=== PATIENT | female | born 1950 | race African-American/Black ===

== ENCOUNTER 2016-12-19 16:46 | Observation (INO) | payer MEDICARE, MEDICAID, OTHER ==
[2016-12-19] VITALS (7 sets, daily range): BP systolic 146–230; BP diastolic 71–125; PULSE 62–86; RESP 16–18; TEMP 97.8; O2SAT 98–100
[~2016-12-19] VITALS: Ht 162.6 cm; Wt 71.0 kg
[~2016-12-19 16:46] MED LIST: AMLO5TAB2 PO; ASPI81CH CHEW; ASPI81TA81 PO; ATEN25TA PO; CHOL1TAB42 PO; EPIP0.3I IM; HYDR-3533 PO; LISI10TA PO; NITR1SUB3 SL; PRAV40TA PO
--- NOTE | 2016-12-19 18:04 | PD ---
HPI Chief Complaint: Cardiac Complaint Time Seen by Provider: 18:03 Travel History International Travel<30 days: No Contact w/Intl Traveler<30days: No Traveled to known affect area: No History of Present Illness HPI 66-year-old female with history of CAD, hypertension, CABG 2, diabetes, depression, anxiety, GERD, CVA, chronic pain of the left neck and left upper extremity, presents today from her primary care provider, Dr. Rodríguez in the [address] [place] [address] patient states she has been under increased stressors lately and has been having intermittent left-sided chest pressure. This is not something that she typically experiences. It has been at rest and with activity. She cannot think of any alleviating or exacerbating factors. Denies any nausea or vomiting. No episodes of diaphoresis. She is not currently having any pain. She has no other symptoms to report. PFSH Past Medical History Arthritis: Yes Asthma: No Autoimmune Disease: No Blood Disorders: No Anxiety: Yes Depression: Yes Heart Rhythm Problems: Yes Cancer: No Cardiovascular Problems: Yes High Cholesterol: Yes Chest Pain: Yes Congestive Heart Failure: Yes (2007) COPD: No Cerebrovascular Accident: Yes Diabetes: Yes Endocrine: No Gastrointestinal Disorders: Yes GERD: Yes Genitourinary: No Hypertension: Yes Kidney Stones: No Musculoskeletal: Yes Neurologic: No Psychiatric: No Reproductive: No Respiratory: No Migraines: No Myocardial Infarction: Yes Renal Failure: No Seizures: Yes Sickle Cell Disease: No Sleep Apnea: No Ulcer: No Past Surgical History Abdominal Surgery: No AICD: No Arteriovenous Shunt: No Cardiac Surgery: Yes (CARDIAC CATH X2, CABG 2007) Coronary Artery Bypass Graft: Yes (x 4 2008) Ear Surgery: No Endocrine Surgery: No Eye Surgery: No Genitourinary Surgery: Yes (bladder suspension) Gynecologic Surgery: Yes (HYSTERECTOMY) Hysterectomy: Yes Insulin Pump: No Joint Replacement: No Neurologic Surgery: Yes (neck surg from [facility]) Oral Surgery: No Pacemaker: No Thoracic Surgery: No Other Surgery: Yes (HYSTERECTOMY, CARDIAC CATHX2, CABG 2007) Social History Alcohol Use: Yes (AGUSTIN) Tobacco Use: Yes Substance Use: Yes (marijuana when can get it) Allergies-Medications (Allergen,Severity, Reaction): Coded Allergies: Penicillin (Verified Allergy, Intermediate, swelling /hives all over, 12/19) Seafood (Verified Allergy, Intermediate, Swelling, 12/19/16) mouth swelling Sulfa (Verified Allergy, Mild, swelling , 12/19/16) mouth swells Cipro (Verified Allergy, Unknown, swelling, 12/19/16) Reported Meds & Prescriptions Reported Meds & Active Scripts Active Lortab (Hydrocodone-Acetaminophen) 5-325 Mg Tab 1 Tab PO Q6H PRN Amlodipine (Amlodipine Besylate) 5 Mg Tab 5 Mg PO DAILY Lisinopril-Hctz 10-12.5 Mg Tab 1 Tab PO DAILY Epipen (Epinephrine) 0.3 Mg Inj 0.3 Mg IM ONCE PRN Reported Nitroglycerin SL (Nitroglycerin) 0.4 Mg Subl 0.4 Mg SL DIRECTED PRN ONE TABLET UNDER THE TONGUE NEEDED FOR CHEST PAIN, MAY REPEAT EVERY FIVE MINUTES FOR A TOTAL OF 3 DOSES OR CALL 911 IF NO RELIEF Vitamin D-3 (Cholecalciferol) 2,000 Unit Tab 2,000 Units PO DAILY Pravachol (Pravastatin) 40 Mg Tab 40 Mg PO DAILY Atenolol 25 Mg Tab 25 Mg PO DAILY Aspir-81 (Aspirin) 81 Mg Tabdr 81 Mg PO DAILY Review of Systems Except as stated in HPI: all other systems reviewed are Neg Physical Exam Narrative GENERAL: Well-nourished female patient, in no acute distress SKIN: Focused skin assessment warm/dry. HEAD: Atraumatic. Normocephalic. EYES: Pupils equal and round. No scleral icterus. No injection or drainage. ENT: No nasal bleeding or discharge. Mucous membranes pink and moist. NECK: Trachea midline. No JVD. CARDIOVASCULAR: Regular rate and rhythm. No murmur appreciated. RESPIRATORY: No accessory muscle use. Clear to auscultation. Breath sounds equal bilaterally. GASTROINTESTINAL: Abdomen soft, non-tender, nondistended. Hepatic and splenic margins not palpable. MUSCULOSKELETAL: No obvious deformities. No clubbing. No cyanosis. No edema. NEUROLOGICAL: Awake and alert. No obvious cranial nerve deficits. Motor grossly within normal limits. Garbled/difficult to understand speech. Patient does not have any teeth in her mouth. PSYCHIATRIC: Appropriate mood and affect; insight and judgment normal. Data Data Last Documented VS Vital Signs Date Time Temp Pulse Resp B/P Pulse Ox O2 Delivery O2 Flow Rate FiO2 12/19/16 19:42 74 18 230/112 100 Room Air 12/19/16 17:05 97.8 Orders Electrocardiogram (12/19/16 18:02) Basic Metabolic Panel (Bmp) (12/19/16 18:02) Ckmb (Isoenzyme) Profile (12/19/16 18:02) Complete Blood Count With Diff (12/19/16 18:02) Magnesium (Mg) (12/19/16 18:02) Prothrombin Time / Inr (Pt) (12/19/16 18:02) Act Partial Throm Time (Ptt) (12/19/16 18:02) Troponin I (12/19/16 18:02) Chest, Single Ap (12/19/16 18:02) Ecg Monitoring (12/19/16 18:02) Bilateral Bp Monitoring (12/19/16 18:02) Iv Access Insert/Monitor (12/19/16 18:02) Oximetry (12/19/16 18:02) Oxygen Administration (12/19/16 18:02) Aspirin Chew (Aspirin Chew) (12/19/16 18:15) Sodium Chloride 0.9% Flush (Ns Flush) (12/19/16 18:15) Admit Order (Ed Use Only) (12/19/16 19:58) Labs Laboratory Tests Test 12/19/16 19:23 White Blood Count 7.2 TH/MM3 Red Blood Count 4.47 MIL/MM3 Hemoglobin 12.9 GM/DL Hematocrit 40.4 % Mean Corpuscular Volume 90.6 FL Mean Corpuscular Hemoglobin 28.9 PG Mean Corpuscular Hemoglobin 31.9 % Concent Red Cell Distribution Width 14.4 % Platelet Count 256 TH/MM3 Mean Platelet Volume 8.2 FL Neutrophils (%) (Auto) 61.8 % Lymphocytes (%) (Auto) 29.0 % Monocytes (%) (Auto) 5.4 % Eosinophils (%) (Auto) 3.2 % Basophils (%) (Auto) 0.6 % Neutrophils # (Auto) 4.4 TH/MM3 Lymphocytes # (Auto) 2.1 TH/MM3 Monocytes # (Auto) 0.4 TH/MM3 Eosinophils # (Auto) 0.2 TH/MM3 Basophils # (Auto) 0.0 TH/MM3 CBC Comment DIFF FINAL Differential Comment Prothrombin Time 11.0 SEC Prothromb Time International 1.0 RATIO Ratio Activated Partial 23.3 SEC Thromboplast Time Sodium Level 137 MEQ/L Potassium Level 4.2 MEQ/L Chloride Level 104 MEQ/L Carbon Dioxide Level 24.9 MEQ/L Anion Gap 8 MEQ/L Blood Urea Nitrogen 17 MG/DL Creatinine 1.39 MG/DL Estimat Glomerular Filtration 46 ML/MIN Rate Random Glucose 92 MG/DL Calcium Level 9.4 MG/DL Magnesium Level 2.1 MG/DL Total Creatine Kinase 100 U/L Troponin I LESS THAN 0.02 NG/ML MDM Medical Decision Making Medical Screen Exam Complete: Yes Emergency Medical Condition: Yes Medical Record Reviewed: Yes Differential Diagnosis Angina stable versus unstable versus ACS versus chest wall pain versus pleuritic pain Narrative Course 66-year-old female presents to emergency department for evaluation of chest pressure. Patient appears without distress. Her vital signs are stable except she is hypertensive and has a history of this. EKG is done and shows possible lateral wall ischemia with inverted ST segment. CBC is without acute concern. BMP also without acute concern. Troponin is less than 0.02. Patient will be admitted observation to the chest pain center for further evaluation of her symptoms. Diagnosis Primary Impression: Chest pressure Additional Impression: Hypertension Qualified Code: I10 - Essential hypertension Admitting Information Admitting Physician Requests: Observation Condition: Stable Jigna Ruvalcaba Dec 19, 2016 18:03
[2016-12-19] MEDS ORDERED: SODIUM CHLORIDE 0.9% FLUSH 10 ML FLUSH IVF PRN (18:15)
[2016-12-19] MEDS ORDERED: ASPIRIN 81 MG CHEW TAB PO ONE (18:15)
--- NOTE | 2016-12-19 19:00 | RADRPT ---
EXAM DATE/TIME: 12/19/2016 17:57 [facility] COMPARISON: CHEST SINGLE AP, July 21, 2013, 4:11. INDICATIONS : Chest pain MEDICAL HISTORY : Cardiovascular disease. SURGICAL HISTORY : CABG. Fusion, cervical. ENCOUNTER: Initial ACUITY: >1 year PAIN SCORE: 0/10 LOCATION: Bilateral chest FINDINGS: The lungs are clear without infiltrate, nodule, or mass. There is no appreciable pleural effusion fo r technique. Heart and mediastinum are unremarkable. There is evidence for prior median sternotomy. There are old healed rib fractures in the right lower chest. CONCLUSION: No acute cardiopulmonary disease. Ghada Brown MD on December 19, 2016 at 18:57 Board Certified Radiologist. This report was verified electronically.
[2016-12-19 19:35] LABS: AUTOMATED NEUTROPHIL # 4.4 TH/MM3 (1.8-7.7); BASOPHIL % 0.6 % (0.0-2.0); EOSINOPHIL # 0.2 TH/MM3 (0-0.4); EOSINOPHIL % 3.2 % (0.0-4.0); HEMATOCRIT 40.4 % (35.0-46.0); HEMO FLAGS DIFF FINAL; LYMPHOCYTE # 2.1 TH/MM3 (1.0-4.8); MEAN CELL VOLUME 90.6 FL (80.0-100.0); MEAN CORPUSCULAR HEMOGLOBIN 28.9 PG (27.0-34.0); MEAN CORPUSCULAR HGB CONC 31.9 % (32.0-36.0); MONO % 5.4 % (0.0-8.0); NEUT % 61.8 % (16.0-70.0); PLATELET COUNT 256 TH/MM3 (150-450); RED BLOOD COUNT 4.47 MIL/MM3 (4.00-5.30); RED CELL DISTRIBUTION WIDTH 14.4 % (11.6-17.2); WHITE BLOOD COUNT 7.2 TH/MM3 (4.0-11.0)
[2016-12-19 19:51] LABS: ANION GAP 8 MEQ/L (5-15); BICARBONATE 24.9 MEQ/L (21.0-32.0); BLOOD UREA NITROGEN 17 MG/DL (7-18); CHLORIDE 104 MEQ/L (98-107); GLOMERULAR FILTRATION RATE 46 ML/MIN (>89); MAGNESIUM 2.1 MG/DL (1.5-2.5); POTASSIUM 4.2 MEQ/L (3.5-5.1); SODIUM (NA) 137 MEQ/L (136-145)
[2016-12-19 19:56] LABS: CREATINE KINASE 100 U/L (26-192)
[2016-12-19 19:58] LABS: APTT (PATIENT) 23.3 SEC (24.3-30.1)
--- NOTE | 2016-12-19 20:27 | PD ---
Physical Exam Narrative Patient was seen by me and my emergency veterinary assistant. Patient has history hypertension and has not been taking her medication for the past week. Patient was on atenolol 25 mg daily. Data Data Last Documented VS Vital Signs Date Time Temp Pulse Resp B/P Pulse Ox O2 Delivery O2 Flow Rate FiO2 12/19/16 20:12 84 18 210/90 99 Room Air 12/19/16 17:05 97.8 Orders Electrocardiogram (12/19/16 18:02) Basic Metabolic Panel (Bmp) (12/19/16 18:02) Ckmb (Isoenzyme) Profile (12/19/16 18:02) Complete Blood Count With Diff (12/19/16 18:02) Magnesium (Mg) (12/19/16 18:02) Prothrombin Time / Inr (Pt) (12/19/16 18:02) Act Partial Throm Time (Ptt) (12/19/16 18:02) Troponin I (12/19/16 18:02) Chest, Single Ap (12/19/16 18:02) Ecg Monitoring (12/19/16 18:02) Bilateral Bp Monitoring (12/19/16 18:02) Iv Access Insert/Monitor (12/19/16 18:02) Oximetry (12/19/16 18:02) Oxygen Administration (12/19/16 18:02) Aspirin Chew (Aspirin Chew) (12/19/16 18:15) Sodium Chloride 0.9% Flush (Ns Flush) (12/19/16 18:15) Admit Order (Ed Use Only) (12/19/16 19:58) Hydralazine Inj (Apresoline Inj) (12/19/16 20:30) Urinalysis - C+S If Indicated (12/19/16 20:23) Labs Laboratory Tests Test 12/19/16 19:23 White Blood Count 7.2 TH/MM3 Red Blood Count 4.47 MIL/MM3 Hemoglobin 12.9 GM/DL Hematocrit 40.4 % Mean Corpuscular Volume 90.6 FL Mean Corpuscular Hemoglobin 28.9 PG Mean Corpuscular Hemoglobin 31.9 % Concent Red Cell Distribution Width 14.4 % Platelet Count 256 TH/MM3 Mean Platelet Volume 8.2 FL Neutrophils (%) (Auto) 61.8 % Lymphocytes (%) (Auto) 29.0 % Monocytes (%) (Auto) 5.4 % Eosinophils (%) (Auto) 3.2 % Basophils (%) (Auto) 0.6 % Neutrophils # (Auto) 4.4 TH/MM3 Lymphocytes # (Auto) 2.1 TH/MM3 Monocytes # (Auto) 0.4 TH/MM3 Eosinophils # (Auto) 0.2 TH/MM3 Basophils # (Auto) 0.0 TH/MM3 CBC Comment DIFF FINAL Differential Comment Prothrombin Time 11.0 SEC Prothromb Time International 1.0 RATIO Ratio Activated Partial 23.3 SEC Thromboplast Time Sodium Level 137 MEQ/L Potassium Level 4.2 MEQ/L Chloride Level 104 MEQ/L Carbon Dioxide Level 24.9 MEQ/L Anion Gap 8 MEQ/L Blood Urea Nitrogen 17 MG/DL Creatinine 1.39 MG/DL Estimat Glomerular Filtration 46 ML/MIN Rate Random Glucose 92 MG/DL Calcium Level 9.4 MG/DL Magnesium Level 2.1 MG/DL Total Creatine Kinase 100 U/L Troponin I LESS THAN 0.02 NG/ML MDM Supervised Visit with BRANDON: Yes Narrative Course Patient has not been taking her blood pressure medication, atenolol, for the past week. Patient's hypertensive. Hydralazine 10 mg IV given. Patient will be put back on atenolol 25 mg daily. Diagnosis Primary Impression: Chest pressure Additional Impression: Hypertension Qualified Code: I10 - Essential hypertension Condition: Stable Alan Longo MD Dec 19, 2016 20:27
[2016-12-19] MEDS ORDERED: hydrALAZINE HCL 20 MG/ML VIAL IV PUSH ONE (20:30)
[2016-12-19 20:56] LABS: BACTERIA, URINE RARE /hpf; BLOOD, URINE NEG (NEG); COMMENT (UR) CULT NOT INDICATED; CULTURE IF INDICATED CULT NOT INDICATED; GLUCOSE,URINE NEG (NEG); KETONE, URINE NEG (NEG); NITRITE,URINE NEG (NEG); PH, URINE 7.5 (5.0-8.5); SQUAMOUS EPITHELIAL CELL URINE 2 /hpf (0-5); URINE COLOR COLORLESS (YELLW/STRAW)
[2016-12-19] MEDS ORDERED: ONDANSETRON HCL 4 MG/2 ML VIAL IV PRN (23:30)
[2016-12-19] MEDS ORDERED: ACETAMINOPHEN 500 MG CPLT PO PRN (23:30)
[2016-12-19] MEDS ORDERED: NITROGLYCERIN 0.4 MG SL 25 TABS/BTL SL PRN (23:30)
[2016-12-20 01:19] VITALS: BP 151/86; PULSE 90; RESP 19; TEMP 98; O2SAT 98
[2016-12-20 01:23] VITALS: PULSE 96
[2016-12-20 01:42] LABS: CREATINE KINASE 79 U/L (26-192)
[2016-12-20 03:34] LABS: CREATINE KINASE 119 U/L (26-192)
[2016-12-20 03:46] LABS: CKMB 0.6 NG/ML (0.5-3.6)
[2016-12-20 08:00] VITALS: PULSE 80
[2016-12-20 08:04] VITALS: BP 190/87; PULSE 76; RESP 18; TEMP 98; O2SAT 99
[2016-12-20 08:41] VITALS: O2SAT 99
[2016-12-20] MEDS ORDERED: amLODIPine BESYLATE 5 MG TAB PO SCH (09:00)
[2016-12-20] MEDS ORDERED: SODIUM CHLORIDE 0.9% FLUSH 10 ML FLUSH IV FLUSH SCH (09:00)
[2016-12-20] MEDS ORDERED: cloNIDine HCL 0.1 MG TAB PO PRN (09:00)
[2016-12-20] MEDS ORDERED: ASPIRIN 325 MG TAB PO SCH (09:00)
[2016-12-20] MEDS ORDERED: ATENOLOL 25 MG TAB PO SCH ×2 (09:00)
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
[2016-12-20] MEDS ORDERED: REGADENOSON INJ 0.4 MG/5 ML SYR ONE (11:05)
--- NOTE | 2016-12-20 12:56 | RADRPT ---
EXAM DATE/TIME: 12/20/2016 10:41 [facility] COMPARISON: CHEST SINGLE AP, December 19, 2016, 17:57. INDICATIONS : Substernal chest pain without radiation. Coronary artery disease. Angina. DOSE: 25.6 mCi Tc99m Myoview at stress. 8.3 mCi Tc99m Myoview at rest. 0.4 mg Lexiscan STRESS SYMPTOMS: Chest pain and a hot feeling. EJECTION FRACTION: 47% MEDICAL HISTORY : Diabetes mellitus type 2. Gastroesophageal reflux disease. Chronic obstructive pulmonary disease. Hyp ertension. SURGICAL HISTORY : Hysterectomy. CABG Bladder suspension. ENCOUNTER: Initial ACUITY: 1 day PAIN SCALE: 6/10 LOCATION: Substernal chest TECHNIQUE: The patient underwent pharmacologic stress with infusion of prescribed dose. Continuous ECG tracing was monitored during stress. Gated SPECT imaging was performed after stress and conventional SPECT i maging was performed at rest. The examination was performed on a SPECT/CT scanner, both attenuation and non-corrected datasets were reviewed. FINDINGS: DISTRIBUTION: The maximum perfused segment at stress is in the anteroseptal wall. PERFUSION STUDY: The pattern of perfusion at stress demonstrates an area of redistribution involving the inferoseptal and anterolateral goldstein towards the lower aspect on the attenuation corrected images, however these a reas appear to be fixed on the nonattenuation corrected images and findings could be artifactually cr eated due to the patient's breast artifact. GATED STUDY: There is intact wall motion and thickening without hypokinetic or dyskinetic segments. CONCLUSION: Limited examination due to significant breast attenuation with possible slight ischemia in the low in feroseptal and anterolateral goldstein. RISK CATEGORY: Low (<1% Annual Mortality Rate) Ghada Brown MD on December 20, 2016 at 12:51 Board Certified Radiologist. This report was verified electronically.
--- NOTE | 2016-12-20 13:08 | EKG ---
Date Performed: 12/20/2016 Time Performed: 00:22:44 PTAGE: 66 years EKG: Sinus rhythm WITH FIRST DEGREE AV BLOCK POSSIBLE LEFT ATRIAL ENLARGEMENT RIGHT BUNDLE BRANCH BLOCK MODERATE T-WAV E ABNORMALITY, CONSIDER LATERAL ISCHEMIA ABNORMAL ECG PREVIOUS TRACING : 12/19/2016 18.14 Since previous tracing, no significant change noted DOCTOR: Jefe Vale Interpretating Date/Time 12/20/2016 13:07:39
--- NOTE | 2016-12-20 13:08 | TR ---
Date Performed: 12/20/2016 Time Performed: 11:21:43 DOCTOR: Jefe Vale DRUG LIST: CLINICAL HISTORY: REASON FOR TEST: Angina REASON FOR ENDING: OBSERVATION: CONCLUSION: Lexiscan stress test was performed under standard four minute protocol. Radionuclid e was injected one minute prior to ending the test. No electrocardiographic abormalities were present to suggest ischemia. Nuclear imaging and interpretation are pending. COMMENTS:
--- NOTE | 2016-12-20 13:09 | EKG ---
Date Performed: 12/19/2016 Time Performed: 18:14:10 PTAGE: 66 years EKG: Sinus rhythm WITH OCCASIONAL VENTRICULAR PREMATURE COMPLEXES RIGHT BUNDLE BRANCH BLOCK LEFT ANTERIOR FASCICULAR B LOCK MODERATE T-WAVE ABNORMALITY, CONSIDER LATERAL ISCHEMIA ABNORMAL ECG PREVIOUS TRACING : 07/28/2013 10.20 Since previous tracing, no significant change noted DOCTOR: Jefe Vale Interpretating Date/Time 12/20/2016 13:08:44
--- NOTE | 2016-12-20 13:17 | EKG ---
Date Performed: 12/20/2016 Time Performed: 02:35:47 PTAGE: 66 years EKG: Sinus rhythm POSSIBLE LEFT ATRIAL ENLARGEMENT RIGHT BUNDLE BRANCH BLOCK LEFT ANTERIOR FASCICULAR BLOCK MODERATE T -WAVE ABNORMALITY, CONSIDER ANTEROLATERAL ISCHEMIA MODERATE T-WAVE ABNORMALITY, CONSIDER INFERIOR ISC HEMIA ABNORMAL ECG PREVIOUS TRACING : 12/20/2016 00.22 Since previous tracing, no significant change noted DOCTOR: Jefe Vale Interpretating Date/Time 12/20/2016 13:15:03
[2016-12-20] MEDS ORDERED: LOSA50TA PO (13:21)
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
[2017-01-01] MEDS ORDERED: HYDR-3533 PO (07:47)
[2017-02-05] MEDS ORDERED: HYDR-3533 PO (08:06)
[2017-03-03] MEDS ORDERED: HYDR-3533 PO (08:31)
== END 2016-12-20 15:50 | disposition home or self-care (01) ==
LOC: NEPC 16:46 → NEDA 20:00 → NEDH 12-20 → NEPGCP 12-20 00:34
DX: R07.9 Chest pain, unspecified (principal); I50.9 Heart failure, unspecified; I11.0 Hypertensive heart disease with heart failure; Z95.1 Presence of aortocoronary bypass graft; Z86.73 Personal history of transient ischemic attack (TIA), and cerebral infarction without residual deficits; I25.10 Atherosclerotic heart disease of native coronary artery without angina pectoris; K21.9 Gastro-esophageal reflux disease without esophagitis; G89.29 Other chronic pain; F41.9 Anxiety disorder, unspecified; M19.90 Unspecified osteoarthritis, unspecified site; E78.00 Pure hypercholesterolemia, unspecified; I25.2 Old myocardial infarction; R56.9 Unspecified convulsions; F17.210 Nicotine dependence, cigarettes, uncomplicated; F12.10 Cannabis abuse, uncomplicated; Z79.899 Other long term (current) drug therapy; Z91.14 Patient's other noncompliance with medication regimen; Z95.5 Presence of coronary angioplasty implant and graft; M79.602 Pain in left arm; I45.2 Bifascicular block; M79.1 Myalgia
CPT/HCPCS: 71010; 78452; 80048; 81001; 82550; 82552; 83735; 84484; 85025; 85610; 85730; 93005; 93017; 99285; A9502; G0378; J0360; J2785

== ENCOUNTER 2018-04-25 18:05 | Observation (INO) ==
--- NOTE | 2018-04-25 20:00 | ED ---
HPI General Chief complaint: Weakness Stated complaint: Evac/Medical Complaint Time Seen by Provider: 04/25/18 19:50 Source: patient Mode of arrival: EMS Limitations: no limitations History of Present Illness HPI Narrative: 67-year-old female presents to the emergency department from home by EMS transport for evaluation of weakness or possible TIA. According to the patient as well as her 2 sons that are at the bedside proxy 2 hours prior to arrival to the emergency department she was sitting outside in the heat had been outside for some time and while her son was talking to her he noticed that she seemed to become unresponsive with a fixed gaze and would not talk or respond to his questions or tactile stimulation. Patient did not have any injury or trauma. Patient has not been ill prior to this. Patient presently states that she feels fine and that she does not recall being unresponsive she recalls everything that happened she just could not talk to her son. Son states that she was a fixed gaze that she had drooling from her mouth she was nonverbal when not move her upper or lower extremities. According to the son symptoms resolve spontaneously and were not present by the time paramedics arrived. Patient reports that she thought her blood sugar was low. Patient is not diabetic. Patient does have history of hypertension dyslipidemia CAD and previous CABG. Patient denies having any chest pain palpitations shortness of breath sweats nausea vomiting headache visual disturbance confusion upper or lower extremity numbness tingling or weakness. Patient was not aware that she was not speaking. No prior history of TIA or CVA. No seizure activity was witnessed by son and no history of seizure. Patient does admit to marijuana use denies tobacco use or alcohol use. Patient did smoke marijuana earlier today. Related Data Allergies Allergy/AdvReac Type Severity Reaction Status Date / Time Fish Containing Products Allergy Intermediate Swelling Verified 04/25/18 18:17 penicillin G Allergy Intermediate swelling Verified 04/25/18 18:17 /hives all over Sulfa (Sulfonamide Allergy Mild swelling Verified 04/25/18 18:17 Antibiotics) ciprofloxacin Allergy Unknown swelling Verified 04/25/18 18:17 Review of Systems ROS: all other systems reviewed are negative PMFSH History History Provided By: Patient (Hypertension dyslipidemia CAD CABG marijuana use no tobacco use) and Medical Record (Hypertension dyslipidemia diet-controlled diabetes CABG catheter stent 2 radiation therapy for cervical fibromatosis C- spine surgery syncope CVA) Medical History Medical History HTN (hypertension) (Acute) Social History Social History Substance History: Active Abuse Second Hand Smoke Exposure: No Smoking Status: Never smoker Tobacco Type: Cigarettes How Often Do You Have a Drink Containing Alcohol: Never Recent Travel in [facility] within the Last 8 Weeks: No Recent Out of Country Travel within the Last 8 Weeks: No Substance Abuse Detail Marijuana: Substance Use Status: Active Immunization History Tetanus Immunization: Unsure Hx Influenza Vaccine This Season: Unable to Assess Exam Narrative Exam Narrative: GENERAL: Well-developed well-nourished elderly appearing female in no acute distress no respiratory distress; GCS 15; triage vital signs within normal range; NIHSS:0 SKIN: Focused skin assessment warm/dry. HEAD: Atraumatic. Normocephalic. EYES: Pupils equal and round. Extraocular muscles intact. No scleral icterus. No injection or drainage. ENT: No nasal bleeding or discharge. Mucous membranes pink and moist. Airway is patent. NECK: Trachea midline. No JVD. CARDIOVASCULAR: Regular rate and rhythm. No murmur appreciated. RESPIRATORY: No accessory muscle use. Clear to auscultation. Breath sounds equal bilaterally. GASTROINTESTINAL: Abdomen soft, non-tender, nondistended. Hepatic and splenic margins not palpable. MUSCULOSKELETAL: No obvious deformities. No clubbing. No cyanosis. No edema. NEUROLOGICAL: Awake and alert. No obvious cranial nerve deficits. Motor grossly within normal limits. Sensory exam grossly intact as tested. No limb ataxia. No pronator drift. Normal speech. PSYCHIATRIC: Appropriate mood and affect; insight and judgment normal. Course Initial Documented Vital Signs Temperature 98.4 F 04/25/18 18:17 Pulse Rate 71 04/25/18 18:17 Respiratory Rate 16 04/25/18 18:17 Blood Pressure 121/71 04/25/18 18:17 Pulse Oximetry 100 04/25/18 18:17 Last Documented Vital Signs Temperature 98.4 F 04/25/18 18:17 Pulse Rate 71 04/25/18 18:17 Respiratory Rate 16 04/25/18 18:17 Blood Pressure 121/71 04/25/18 18:17 Pulse Oximetry 100 04/25/18 18:17 Medical Decision Making MDM Narrative Medical decision making narrative: 67-year-old female with history of hypertension dyslipidemia CAD and previous CABG presents to the emergency department with episode of generalized weakness with possible TIA exhibited by decreased responsiveness and expressive aphasia which has now resolved. According to bystander family members symptoms lasted for several minutes but have resolved completely. Patient placed on sand temperer with continuous pulse oximetry IV access obtained specimens collected and sent for resulting EKG and imaging studies ordered. CT brain noncontrast reveals no acute process chronic changes prior infarct noted; EKG sinus rhythm right bundle branch block noted on prior EKG from November 2016 inferior infarct Q-wave changes noted age-indeterminate however not present on prior EKG UDS: cannbioids; discussed with Dr Campbell --OBS for TIA Medical Screen Exam Complete: Yes Emergency Medical Condition: Yes Differential Diagnosis Differential Diagnosis: Generalized weakness, TIA, CVA, arrhythmia, ACS, electrolyte disturbance, hypoglycemia, substance ingestion, UTI, sepsis Medical Records Medical records reviewed: Yes I reviewed the patient's medical records. Lab Data Result diagrams: 04/25/18 20:45 04/25/18 20:45 Lab Results 04/25/18 04/25/18 04/25/18 Range/Units 20:45 20:45 20:45 WBC 9.2 (4.0-11.0) th/mm3 RBC 4.27 (4.00-5.30) mil/mm3 Hgb 13.2 (11.6-15.3) gm/dL Hct 38.1 (35.0-46.0) % MCV 89.2 (80.0-100.0) fL MCH 30.9 (27.0-34.0) pg MCHC 34.6 (32.0-36.0) % RDW 14.2 (11.6-17.2) % Plt Count 280 (150-450) th/mm3 MPV 7.7 (7.0-11.0) fL Neut % (Auto) 83.3 H (16.0-70.0) % Lymph % (Auto) 12.2 (9.0-44.0) % Poinsett % (Auto) 3.6 (0.0-8.0) % Eos % (Auto) 0.6 (0.0-4.0) % Baso % (Auto) 0.3 (0.0-2.0) % Neut # (Auto) 7.6 (1.8-7.7) th/mm3 Lymph # (Auto) 1.1 (1.0-4.8) th/mm3 Po[place]ett # (Auto) 0.3 (0.0-0.9) th/mm3 Eos # (Auto) 0.1 (0.0-0.4) th/mm3 Baso # (Auto) 0.0 (0.0-0.2) th/mm3 WBC Differential . Differential Comment Auto diff final PT 11.2 (9.8-11.6) sec INR 1.1 Ratio Sodium (136-145) meq/L Potassium (3.5-5.1) meq/L Chloride (98-107) meq/L Carbon Dioxide (21.0-32.0) meq/L Anion Gap (5-15) meq/L BUN (7-18) mg/dL Creatinine (0.50-1.00) mg/dL Estimated GFR (>89) mL/min Random Glucose (74-106) mg/dL Calcium (8.5-10.1) mg/dL Magnesium 2.1 (1.5-2.5) mg/dL Total Bilirubin (0.2-1.0) mg/dL AST (15-37) U/L ALT (10-53) U/L Alkaline Phosphatase (45-117) U/L Troponin I (0.02-0.05) ng/mL Total Protein (6.4-8.2) g/dL Albumin (3.4-5.0) g/dL TSH 0.836 (0.358-3.740) uIU/mL Urine Color (Yellw/Straw) Urine Clarity (Clear) Urine pH (5.0-8.5) Ur Specific Lapel (1.002-1.035) Urine Protein (Neg-Trace) mg/dL Urine Glucose (UA) (Negative) mg/dL Urine Ketones (Negative) mg/dL Urine Occult Blood (Negative) Urine Nitrate (Negative) Urine Bilirubin (Negative) Urine Urobilinogen (Less than 2) mg/dL Ur Leukocyte Esterase (Negative) Urine RBC (0-3) /hpf Urine WBC (0-5) /hpf Ur Squamous Epith Cells (0-5) /hpf Calcium Oxalate Crystal (None) /hpf Hyaline Casts (0-3) /lpf Urine Mucus (Occasional) /lpf Micro UA Comment Ur Microscopic Review Urine Culture Comments Urine Opiates Screen (Neg) Ur Barbiturates Screen (Neg) Ur Amphetamines Screen (Neg) U Benzodiazepines Scrn (Neg) Urine Cocaine Screen (Neg) U Cannabinoids Screen (Neg) 04/25/18 04/25/18 04/25/18 Range/Units 20:45 21:30 21:30 WBC (4.0-11.0) th/mm3 RBC (4.00-5.30) mil/mm3 Hgb (11.6-15.3) gm/dL Hct (35.0-46.0) % MCV (80.0-100.0) fL MCH (27.0-34.0) pg MCHC (32.0-36.0) % RDW (11.6-17.2) % Plt Count (150-450) th/mm3 MPV (7.0-11.0) fL Neut % (Auto) (16.0-70.0) % Lymph % (Auto) (9.0-44.0) % Poinsett % (Auto) (0.0-8.0) % Eos % (Auto) (0.0-4.0) % Baso % (Auto) (0.0-2.0) % Neut # (Auto) (1.8-7.7) th/mm3 Lymph # (Auto) (1.0-4.8) th/mm3 Po[place]ett # (Auto) (0.0-0.9) th/mm3 Eos # (Auto) (0.0-0.4) th/mm3 Baso # (Auto) (0.0-0.2) th/mm3 WBC Differential Differential Comment PT (9.8-11.6) sec INR Ratio Sodium 140 (136-145) meq/L Potassium 3.9 (3.5-5.1) meq/L Chloride 107 (98-107) meq/L Carbon Dioxide 23.5 (21.0-32.0) meq/L Anion Gap 10 (5-15) meq/L BUN 28 H (7-18) mg/dL Creatinine 1.91 H (0.50-1.00) mg/dL Estimated GFR 32 L (>89) mL/min Random Glucose 122 H (74-106) mg/dL Calcium 8.8 (8.5-10.1) mg/dL Magnesium (1.5-2.5) mg/dL Total Bilirubin 0.3 (0.2-1.0) mg/dL AST 17 (15-37) U/L ALT 15 (10-53) U/L Alkaline Phosphatase 104 (45-117) U/L Troponin I Less than 0.02 L (0.02-0.05) ng/mL Total Protein 8.0 (6.4-8.2) g/dL Albumin 3.2 L (3.4-5.0) g/dL TSH (0.358-3.740) uIU/mL Urine Color Daylin (Yellw/Straw) Urine Clarity Cloudy H (Clear) Urine pH 5.0 (5.0-8.5) Ur Specific Lapel 1.027 (1.002-1.035) Urine Protein Negative (Neg-Trace) mg/dL Urine Glucose (UA) Negative (Negative) mg/dL Urine Ketones Negative (Negative) mg/dL Urine Occult Blood Small H (Negative) Urine Nitrate Negative (Negative) Urine Bilirubin Negative (Negative) Urine Urobilinogen 4 or greater (Less than 2) mg/dL Ur Leukocyte Esterase Large H (Negative) Urine RBC 8 H (0-3) /hpf Urine WBC 30 H (0-5) /hpf Ur Squamous Epith Cells 8 (0-5) /hpf Calcium Oxalate Crystal Few H (None) /hpf Hyaline Casts 4 (0-3) /lpf Urine Mucus Few H (Occasional) /lpf Micro UA Comment Culture indicated Ur Microscopic Review Not Reportable Urine Culture Comments Culture indicated Urine Opiates Screen Neg (Neg) Ur Barbiturates Screen Neg (Neg) Ur Amphetamines Screen Neg (Neg) U Benzodiazepines Scrn Neg (Neg) Urine Cocaine Screen Neg (Neg) U Cannabinoids Screen Pos H (Neg) Imaging Data Radiologist's impression: Chest X-Ray 04/25/18 19:50 CONCLUSION: No evidence of acute cardiopulmonary process. Left upper lobe scarring; unchanged. Head CT 04/25/18 19:50 CONCLUSION: 1. Chronic ischemic changes with old infarcts in the left frontal lobe and right basal ganglia 2. Chronic ischemic white matter disease. 3. No evidence of acute infarct, hemorrhage, mass or edema. . ECG Data EKG Prior to Arrival: No Attestation: I personally reviewed and interpreted this ECG as follows: Prior ECG tracings: available for review Interpretation: EKG normal sinus rhythm rate 65 right bundle branch block Q- wave inferiorly age-indeterminate nonspecific lateral T-wave changes no acute ST elevation Discharge Plan Discharge Disposition Patient Disposition: 30 Still Patient Discharge Condition Condition: Stable Discharge Details Diagnosis: TIA (transient ischemic attack) Physicians Team ED Provider: Sidra Perez Primary Care Provider: UNKNOWN, Status ED Status: With Doctor
--- NOTE | 2018-04-25 20:22 | CT ---
EXAM DATE: 04/25/2018 8:11 PM EDT AGE/SEX: 67 years / Female INDICATIONS: Altered mental status; possible TIA. CLINICAL DATA: This is the patient's initial encounter. Patient reports that signs and symptoms have been present for 1 day and indicates a pain score of Nonresponsive. MEDICAL/SURGICAL HISTORY: Non-responsive. Non-responsive. RADIATION DOSE: 34.43 CTDI (mGy) [place] [facility] [place]. . TECHNIQUE: CT of the head without contrast. Using automated exposure control and adjustment of the mA and/or kV according to patient size, radiation dose was kept as low as reasonably achievable to ob tain optimal diagnostic quality images. DICOM format image data is available electronically for revi ew and comparison. FINDINGS: Cerebrum: The ventricles are normal for age. Focal encephalomalacia is identified in the left fronta l lobe. Periventricular hypodensity is noted in both frontal lobes. There is an old right basal gangl ia lacunar infarct. No evidence of midline shift, mass lesion, hemorrhage or acute infarction. No e xtraaxial fluid collections are seen. Posterior Fossa: The cerebellum and brainstem are intact. The 4th ventricle is midline. The cerebe llopontine angle is unremarkable. Extracranial: The visualized portion of the orbits is intact. Skull: The calvaria is intact. No evidence of skull fracture. CONCLUSION: 1. Chronic ischemic changes with old infarcts in the left frontal lobe and right basal ganglia 2. Chronic ischemic white matter disease. 3. No evidence of acute infarct, hemorrhage, mass or edema. . Electronically signed by: Valdez Cunha MD 04/25/2018 8:20 PM EDT
--- NOTE | 2018-04-25 20:39 | XR ---
EXAM DATE: 04/25/2018 8:35 PM EDT AGE/SEX: 67 years / Female INDICATIONS: Chest pain and shortness of breath. CLINICAL DATA: This is the patient's initial encounter. Patient reports that signs and symptoms have been present for 1 day and indicates a pain score of 6/10. MEDICAL/SURGICAL HISTORY: Diabetes mellitus type II. Chronic obstructive pulmonary disease. H ypertension. CABG. Hysterectomy. COMPARISON: [facility] – [place]ST SINGLE AP, 12/19/2016. . FINDINGS: Left upper lobe scarring is again noted. The lungs are otherwise clear without evidence of acute airs pace disease. Median sternotomy wires from prior surgery are noted. Osseous structures are intact. CONCLUSION: No evidence of acute cardiopulmonary process. Left upper lobe scarring; unchanged. Electronically signed by: Valdez Cunha MD 04/25/2018 8:37 PM EDT
[2018-04-25 21:26] LABS: Baso % (Auto) 0.3 % (0.0-2.0); Eos # (Auto) 0.1 th/mm3 (0.0-0.4); Eos % (Auto) 0.6 % (0.0-4.0); Hematocrit 38.1 % (35.0-46.0); Hemoglobin 13.2 gm/dL (11.6-15.3); Lymph # (Auto) 1.1 th/mm3 (1.0-4.8); Lymph % (Auto) 12.2 % (9.0-44.0); Mean Corpuscular HGB Conc 34.6 % (32.0-36.0); Mean Corpuscular Hemoglobin 30.9 pg (27.0-34.0); Mean Corpuscular Volume 89.2 fL (80.0-100.0); Mean Platelet Volume 7.7 fL (7.0-11.0); Mono # (Auto) 0.3 th/mm3 (0.0-0.9); Mono % (Auto) 3.6 % (0.0-8.0); Neut # (Auto) 7.6 th/mm3 (1.8-7.7); Neut % (Auto) 83.3 % (16.0-70.0); Platelet Count 280 th/mm3 (150-450); Red Blood Count 4.27 mil/mm3 (4.00-5.30); Red Cell Distribution Width 14.2 % (11.6-17.2); White Blood Count 9.2 th/mm3 (4.0-11.0)
[2018-04-25 21:37] LABS: INR 1.1 Ratio; Prothrombin Time 11.2 sec (9.8-11.6)
[2018-04-25 22:01] LABS: Alanine Aminotransferase 15 U/L (10-53); Albumin 3.2 g/dL (3.4-5.0); Anion Gap 10 meq/L (5-15); Aspartate Aminotransferase 17 U/L (15-37); Blood Urea Nitrogen 28 mg/dL (7-18); Calcium 8.8 mg/dL (8.5-10.1); Carbon Dioxide 23.5 meq/L (21.0-32.0); Chloride 107 meq/L (98-107); Glomerular Filtration Rate 32 mL/min (>89); Glucose,Random 122 mg/dL (74-106); Magnesium 2.1 mg/dL (1.5-2.5); Potassium 3.9 meq/L (3.5-5.1); Sodium 140 meq/L (136-145)
[2018-04-25 22:03] LABS: Alkaline Phosphatase 104 U/L (45-117)
[2018-04-25 22:10] LABS: Thyroid Stimulating Hormone 0.836 uIU/mL (0.358-3.740)
[2018-04-25 22:27] LABS: Bilirubin,Urine Negative (Negative); Calcium Oxalate Crystals,Urine Few /hpf; Clarity,Urine Cloudy (Clear); Color,Urine Amber (Yellw/Straw); Glucose,Urine (UA) Negative (Negative); Hyaline Casts,Urine 4 /lpf (0-3); Leukocyte Esterase,Urine Large (Negative); Mucus,Urine Few /lpf (Occasional); Nitrite,Urine Negative (Negative); Specific Gravity,Urine 1.027 (1.002-1.035); Squamous Epithelial Cell,Urine 8 /hpf (0-5); Urobilinogen,Urine 4 or Greater mg/dL (Less than 2)
[2018-04-25 22:33] LABS: Amphetamine Screen,Urine Neg (Neg); Barbiturate Screen,Urine Neg (Neg); Cannabinoid Screen,Urine Pos (Neg); Cocaine Screen,Urine Neg (Neg)
[2018-04-25 22:40] LABS: Opiate Screen,Urine Neg (Neg)
[2018-04-25] MEDS ORDERED: Nitrofurantoin Monohydrate-Macrocrystal 100 MG Capsule PO ONE (22:46)
[2018-04-25] MEDS ORDERED: Acetaminophen 325 MG Tablet PO PRN (23:16)
[2018-04-25] MEDS ORDERED: Bisacodyl 10 MG Supp RECTAL PRN (23:16)
--- NOTE | 2018-04-25 23:49 | P.HPIM ---
History of Present Illness Primary Care Physician: UNKNOWN History of Present Illness: This is a 67-year-old female with a PMH of HTN, Hyperlipidemia, CAD s/p CABG and h/o CVA w/ residual slurred speech/aphasia who was brought to the ER for possible stroke. Family at bedside notes pt had been sitting outside on the porch, son found her "slumped over" and unresponsive. No convulsions or incontinence noted. Family states episode lasted approx 2 min, was noted to have expressive aphasia, worse from baseline. Pt w/ little recollection of events. Does admit to marijuana, but denies other drug use. Currently back to baseline. On arrival, BP 121/71, HR 71, O2 sat 100% on RA, Afebrile. CBC unremarkable. INR 1.1. Creatinine 1.91, previously 1.39 on 12/19/2016. Troponin negative. UA positive for UTI. Urine Drug Screen positive for THC. CT Head with chronic ischemic changes, old infarcts left frontal lobe and right basal ganglia. CXR with no acute findings. - Diagnosis (1) TIA (transient ischemic attack) (2) UTI (urinary tract infection) (3) Renal insufficiency Review of Systems PAST FAMILY HISTORY: Reviewed. No h/o DM or CAD All other systems reviewed negative except as stated in HPI PMFSH - History History Provided By: Patient (Hypertension dyslipidemia CAD CABG marijuana use no tobacco use), Medical Record (Hypertension dyslipidemia diet-controlled diabetes CABG catheter stent 2 radiation therapy for cervical fibromatosis C- spine surgery syncope CVA) - Medical History Medical History: Medical History (Last Updated 04/25/18 @ 18:21 by Gabrielle Sousa) HTN (hypertension) - Tobacco History Second Hand Smoke Exposure: No Tobacco Use In Past 30 Days: No Smoking Status: Never smoker Tobacco Type: Cigarettes - Alcohol History How Often Do You Have a Drink Containing Alcohol: Never - Substance Use History Substance History: Active Abuse - Substance Use Type Marijuana Status: Active - Travel History Recent Travel in the [place] Within the Last 8 Weeks: No Recent Travel Out of the Country Within the Last 8 Weeks: No - Immunization History Tetanus Immunization: Unsure Hx Influenza Vaccine This Season: Unable to Assess Medications and Allergies Active Medications: Active Medications Acetaminophen (Tylenol) 650 mg PO Q4H PRN PRN Reason: Temp > 100.4 Al Hydroxide/Mg Hydroxide (Milk Of Magnesia Liq) 30 ml PO Q12H PRN PRN Reason: Mild Constipation Aspirin (Ecotrin) 325 mg PO DAILY ILDA Bisacodyl (Dulcolax Supp) 10 mg RECTAL DAILY PRN PRN Reason: SEVERE CONSITIPATION Aztreonam 1,000 mg/ Sodium (Chloride) 100 mls @ 200 mls/hr IV.SIG Q8H ILDA Sodium Chloride (Ns Inj) 1,000 mls @ 100 mls/hr IV.CONT .Q10H ILDA Lactulose (Lactulose Liq) 30 ml PO DAILY PRN PRN Reason: SEVERE CONSITIPATION Ondansetron HCl (Zofran Inj) 4 mg IV.PUSH Q6H PRN PRN Reason: NAUSEA OR VOMITING Pravastatin Sodium (Pravachol) 40 mg PO DAILY [facility] Senna/Docusate Sodium (Winter-Colace) 1 tab PO BID ILDA Sennosides (Senokot) 17.2 mg PO Q12H PRN PRN Reason: Moderate Constipation Sodium Chloride (Ns Flush) 2 ml IV.FLUSH PRN PRN PRN Reason: FLUSH AFTER USING IV ACCESS Allergies Allergy/AdvReac Type Severity Reaction Status Date / Time Fish Containing Products Allergy Intermediate Swelling Verified 04/25/18 18:17 penicillin G Allergy Intermediate swelling Verified 04/25/18 18:17 /hives all over Sulfa (Sulfonamide Allergy Mild swelling Verified 04/25/18 18:17 Antibiotics) ciprofloxacin Allergy Unknown swelling Verified 04/25/18 18:17 Exam Vital signs: Vital Signs 04/25/18 18:17 04/25/18 20:00 Temperature 98.4 F Pulse Rate 71 66 Respiratory Rate 16 16 Blood Pressure 121/71 120/68 Pulse Oximetry 100 98 Intake & Output 04/25/18 04/25/18 04/26/18 06:59 18:59 06:59 Weight 76.204 kg Narrative: PE: GENERAL: Very pleasant middle-aged black female in no acute distress. Family at bedside HEENT: PERRLA, EOMI. No scleral icterus or conjunctival pallor. No lid lag or facial droop. Slurred speech/expressive aphasia at baseline. CARDIOVASCULAR: Regular rate and rhythm. No obvious murmurs to auscultation. No chest tenderness to palpation. RESPIRATORY: No obvious rhonchi or wheezing. Clear to auscultation. Breath sounds equal bilaterally. GASTROINTESTINAL: Abdomen soft, non-tender, nondistended. BS normal. MUSCULOSKELETAL: Extremities without clubbing, cyanosis, or edema. No obvious deformities. NEUROLOGICAL: Awake, alert and oriented x4. No focal neurologic deficits. Moving both upper and lower extremities spontaneously. Results - Labs CBC & Chem 7: 04/25/18 20:45 04/25/18 20:45 Labs: Short CBC 04/25/18 Range/Units 20:45 WBC 9.2 (4.0-11.0) th/mm3 Hgb 13.2 (11.6-15.3) gm/dL Hct 38.1 (35.0-46.0) % Plt Count 280 (150-450) th/mm3 BMP 04/25/18 20:45 Sodium 140 Potassium 3.9 Chloride 107 Carbon Dioxide 23.5 BUN 28 H Creatinine 1.91 H Calcium 8.8 Cardiac Enzymes 04/25/18 Range/Units 20:45 Troponin I Less than 0.02 L (0.02-0.05) ng/mL Liver Function 04/25/18 Range/Units 20:45 Total Bilirubin 0.3 (0.2-1.0) mg/dL AST 17 (15-37) U/L ALT 15 (10-53) U/L Alkaline Phosphatase 104 (45-117) U/L Albumin 3.2 L (3.4-5.0) g/dL Urine 04/25/18 Range/Units 21:30 Urine Color Daylin (Yellw/Straw) Urine Clarity Cloudy H (Clear) Urine pH 5.0 (5.0-8.5) Ur Specific Anthony 1.027 (1.002-1.035) Urine Protein Negative (Neg-Trace) mg/dL Urine Glucose (UA) Negative (Negative) mg/dL - Imaging Impressions Chest X-Ray 04/25/18 19:50 CONCLUSION: No evidence of acute cardiopulmonary process. Left upper lobe scarring; unchanged. Head CT 04/25/18 19:50 CONCLUSION: 1. Chronic ischemic changes with old infarcts in the left frontal lobe and right basal ganglia 2. Chronic ischemic white matter disease. 3. No evidence of acute infarct, hemorrhage, mass or edema. . Caprini VTE Risk Assessment Caprini VTE Risk Assessment: No/Low Risk (score <= 1) Caprini Risk Assessment Model: Point Value = 1 Point Value = 2 Point Value = 3 Point Value = 5 Age 41-60 Minor surgery BMI > 25 kg/m2 Swollen legs Varicose veins or History of unexplained or recurrent spontaneous Oral contraceptives or hormone replacement Sepsis (< 1 month) Serious lung disease, including pneumonia (< 1 month) Abnormal pulmonary function Acute myocardial infarction Congestive heart failure (< 1 month) History of inflammatory bowel disease Medical patient at bed rest Age 61-74 Arthroscopic surgery Major open surgery (> 45 min) Laparoscopic surgery (> 45 min) Malignancy Confined to bed (> 72 hours) Immobilizing plaster cast Central venous access Age >= 75 History of VTE Family history of VTE Factor V Leiden Prothrombin 24052H Lupus anticoagulant Anticardiolipin antibodies Elevated serum homocysteine Heparin-induced thrombocytopenia Other congenital or acquired thrombophilia Stroke (< 1 month) Elective arthroplasty Hip, pelvis, or leg fracture Acute spinal cord injury (< 1 month) Prophylaxis Regimen: Total Risk Factor Score Risk Level Prophylaxis Regimen 0-1 Low Early ambulation 2 Moderate Order ONE of the following: *Sequential Compression Device (SCD) *Heparin 5000 units SQ BID 3-4 Higher Order ONE of the following medications: *Heparin 5000 units SQ TID *Enoxaparin/Lovenox 40 mg SQ daily (WT < 150 kg, CrCl > 30 mL/min) *Enoxaparin/Lovenox 30 mg SQ daily (WT < 150 kg, CrCl > 10-29 mL/min) *Enoxaparin/Lovenox 30 mg SQ BID (WT < 150 kg, CrCl > 30 mL/min) AND/OR *Sequential Compression Device (SCD) 5 or more Highest Order ONE of the following medications: *Heparin 5000 units SQ TID (Preferred with Epidurals) *Enoxaparin/Lovenox 40 mg SQ daily (WT < 150 kg, CrCl > 30 mL/min) *Enoxaparin/Lovenox 30 mg SQ daily (WT < 150 kg, CrCl > 10-29 mL/min) *Enoxaparin/Lovenox 30 mg SQ BID (WT < 150 kg, CrCl > 30 mL/min) AND *Sequential Compression Device (SCD) Assessment and Plan - Assessment (1) TIA (transient ischemic attack) Code(s): G45.9 - Transient cerebral ischemic attack, unspecified Status: Acute (2) UTI (urinary tract infection) Code(s): N39.0 - Urinary tract infection, site not specified Status: Acute (3) Renal insufficiency Code(s): N28.9 - Disorder of kidney and ureter, unspecified Status: Acute - Plan A/P: 1. TIA: h/o CVA w/ residual slurred speech/aphasia, ambulates w/ cane at baseline, noted to have episode of unresponsiveness followed by slurred speech, no witnessed seizure, now back to baseline. CT Head w/ no acute findings, previous left frontal/right basal ganglia infarcts. Admit for Observation, Neuro Checks, MRI/Carotid US to eval for new CVA, Consult Neurology for further eval/recommendations, Check Lipid Profile/Hgb A1c, start ASA/Statin. PT for eval/tx. 2. UTI: U/a w/ UTI, possibly contributing to above, start Azactam IV, IVF for hydration. 3. ANAIS: Creatinine 1.91, previously 1.39 on 12/19/2016, secondary to above, IVF for hydration, monitor I/O, repeat labs in am. 4. DVT Prophylaxis: SCD/Teds 5. Social work for d/c planning as needed 6. Case discussed w/ ER physician at length, labs/records/imaging reviewed by me.
[2018-04-26] MEDS: Sod Chloride 0.9% Inj 1,000 ML IV.CONT SCH ×4 (02:36→22:59)
[2018-04-26] MEDS: Senna/Docusate Sodium 8.6/50 MG Tablet PO SCH ×2 (08:24→21:42)
--- NOTE | 2018-04-26 09:13 | MR ---
EXAM DATE: 04/26/2018 9:05 AM EDT AGE/SEX: 67 years / Female INDICATIONS: TIA. Slurred speech. Left side weakness. CLINICAL DATA: This is the patient's initial encounter. Patient reports that signs and symptoms have been present for 2 days and indicates a pain score of 0/10. MEDICAL/SURGICAL HISTORY: Cerebrovascular disease. Cardiovascular disease. Hypertension. CABG . Fusion, cervical. COMPARISON: [facility] [place], CT HEAD W/O CONTRAST, 04/25/2018. . TECHNIQUE: Multiplanar, multisequence examination of the brain was performed without contrast. FINDINGS: Cerebrum: Encephalomalacia in the left posterior frontal high convexities. Minimal right basal gangl ia lacunar infarct. The ventricles are normal for age. No evidence of midline shift, mass lesion, he morrhage or acute infarction. No extraaxial fluid collections are seen. The pituitary gland and sup rasellar cistern are normal in configuration. White Matter: Moderate periventricular and deep white matter T2 prolongation. Posterior Fossa: The cerebellum and brainstem are intact. The 4th ventricle is midline. The cerebel lopontine angle is unremarkable. The cerebellar tonsils are normal in position. Diffusion Imaging: No focal areas of restricted diffusion are seen. No evidence of acute infarction . Extracranial: The visualized portions of the orbits and paranasal sinuses are unremarkable. CONCLUSION: 1. Remote left frontal lobe and right basal ganglia infarcts. 2. Moderate periventricular white matter ischemic demyelination, out of proportion to age. 3. No acute abnormality. Specifically, no evidence for acute infarction. Electronically signed by: Chris Olivera MD 04/26/2018 9:11 AM EDT
--- NOTE | 2018-04-26 09:26 | P.PN ---
Subjective Interval history: Follow-up for syncope, expressive aphasia. The patient has no recollection of the syncopal episode. She states she continues to have speech difficulties with her expressive aphasia, however feels as though it is at her baseline. She denies any headache, lightheadedness, dizziness, chest pain, shortness breath, or abdominal complaints. She states her neurologist is Dr. Doty. She denies any acute unilateral numbness/weakness. She reports chronic right sided facial droop. She has been ambulating her room without difficulty. She has no other medical complaints at this time. Physical Exam Vital signs: Vital Signs 04/25/18 18:17 04/25/18 20:00 04/26/18 02:14 Temperature 98.4 F 97.9 F Pulse Rate 71 66 60 Respiratory Rate 16 16 16 Blood Pressure 121/71 120/68 164/84 H Pulse Oximetry 100 98 100 04/26/18 03:57 04/26/18 04:00 Temperature 97.6 F Pulse Rate 63 61 Respiratory Rate 16 Blood Pressure 175/87 H Pulse Oximetry 92 L Intake & Output 04/25/18 04/26/18 04/26/18 18:59 06:59 18:59 Intake Total 200 / 200 Balance 200 / 200 Weight 76.204 kg Intake: IV 200 / 200 NS Inj 1,000 ML @ 100 mls/hr IV 100 / 100 .CONT .Q10H [facility] Rx#:[id number] Azactam Inj 1,000 MG In NS Inj 100 / 100 100 ML @ 200 mls/hr IV.SIG Q8H [facility] Rx#:[id number] Narrative: GENERAL: Well-nourished, well-developed pleasant female patient in [facility]. SKIN: Warm and dry. No rash. HEENT: Normocephalic. Atraumatic. Pupils equal and round. Mucous membranes pink and moist. CARDIOVASCULAR: Regular rate and rhythm. No murmur appreciated. RESPIRATORY: No accessory muscle use. Clear to auscultation. Breath sounds equal bilaterally. GASTROINTESTINAL: Abdomen soft, non-tender, nondistended. Normoactive bowel sounds x4. MUSCULOSKELETAL: No obvious deformities. Extremities without clubbing, cyanosis , or edema. NEUROLOGICAL: Awake and alert. No obvious cranial nerve deficits. Moving all extremities spontaneously, mild right sided weakness. Right-sided facial droop with flattening of nasolabial fold compared to the left. Slightly dysarthric speech with stutter. PSYCHIATRIC: Appropriate mood and affect; insight and judgment normal. Results - Labs CBC & Chem 7: 04/25/18 20:45 04/25/18 20:45 Laboratory Results - last 24 hr 04/25/18 04/25/18 04/25/18 20:45 20:45 20:45 WBC 9.2 RBC 4.27 Hgb 13.2 Hct 38.1 MCV 89.2 MCH 30.9 MCHC 34.6 RDW 14.2 Plt Count 280 MPV 7.7 Neut % (Auto) 83.3 H Lymph % (Auto) 12.2 [place] % (Auto) 3.6 Eos % (Auto) 0.6 Baso % (Auto) 0.3 Neut # (Auto) 7.6 Lymph # (Auto) 1.1 [place] # (Auto) 0.3 Eos # (Auto) 0.1 Baso # (Auto) 0.0 WBC Differential . Differential Comment Auto diff final PT 11.2 INR 1.1 Sodium Potassium Chloride Carbon Dioxide Anion Gap BUN Creatinine Estimated GFR Random Glucose Calcium Magnesium 2.1 Total Bilirubin AST ALT Alkaline Phosphatase Troponin I Total Protein Albumin TSH 0.836 Urine Color Urine Clarity Urine pH Ur Specific [place] Urine Protein Urine Glucose (UA) Urine Ketones Urine Occult Blood Urine Nitrate Urine Bilirubin Urine Urobilinogen Ur Leukocyte Esterase Urine RBC Urine WBC Ur Squamous Epith Cells Calcium Oxalate Crystal Hyaline Casts Urine Mucus Micro UA Comment Ur Microscopic Review Urine Culture Comments Urine Opiates Screen Ur Barbiturates Screen Ur Amphetamines Screen U Benzodiazepines Scrn Urine Cocaine Screen U Cannabinoids Screen 04/25/18 04/25/18 04/25/18 20:45 21:30 21:30 WBC RBC Hgb Hct MCV MCH MCHC RDW Plt Count MPV Neut % (Auto) Lymph % (Auto) [place] % (Auto) Eos % (Auto) Baso % (Auto) Neut # (Auto) Lymph # (Auto) [place] # (Auto) Eos # (Auto) Baso # (Auto) WBC Differential Differential Comment PT INR Sodium 140 Potassium 3.9 Chloride 107 Carbon Dioxide 23.5 Anion Gap 10 BUN 28 H Creatinine 1.91 H Estimated GFR 32 L Random Glucose 122 H Calcium 8.8 Magnesium Total Bilirubin 0.3 AST 17 ALT 15 Alkaline Phosphatase 104 Troponin I Less than 0.02 L Total Protein 8.0 Albumin 3.2 L TSH Urine Color [place] Urine Clarity Cloudy H Urine pH 5.0 Ur Specific [place] 1.027 Urine Protein Negative Urine Glucose (UA) Negative Urine Ketones Negative Urine Occult Blood Small H Urine Nitrate Negative Urine Bilirubin Negative Urine Urobilinogen 4 or greater Ur Leukocyte Esterase Large H Urine RBC 8 H Urine WBC 30 H Ur Squamous Epith Cells 8 Calcium Oxalate Crystal Few H Hyaline Casts 4 Urine Mucus Few H Micro UA Comment Culture indicated Ur Microscopic Review Not Reportable Urine Culture Comments Culture indicated Urine Opiates Screen Neg Ur Barbiturates Screen Neg Ur Amphetamines Screen Neg U Benzodiazepines Scrn Neg Urine Cocaine Screen Neg U Cannabinoids Screen Pos H 04/26/18 00:50 WBC RBC Hgb Hct MCV MCH MCHC RDW Plt Count MPV Neut % (Auto) Lymph % (Auto) [place] % (Auto) Eos % (Auto) Baso % (Auto) Neut # (Auto) Lymph # (Auto) [place] # (Auto) Eos # (Auto) Baso # (Auto) WBC Differential Differential Comment PT INR Sodium Potassium Chloride Carbon Dioxide Anion Gap BUN Creatinine Estimated GFR Random Glucose Calcium Magnesium Total Bilirubin AST ALT Alkaline Phosphatase Troponin I Less than 0.02 L Total Protein Albumin TSH Urine Color Urine Clarity Urine pH Ur Specific [place] Urine Protein Urine Glucose (UA) Urine Ketones Urine Occult Blood Urine Nitrate Urine Bilirubin Urine Urobilinogen Ur Leukocyte Esterase Urine RBC Urine WBC Ur Squamous Epith Cells Calcium Oxalate Crystal Hyaline Casts Urine Mucus Micro UA Comment Ur Microscopic Review Urine Culture Comments Urine Opiates Screen Ur Barbiturates Screen Ur Amphetamines Screen U Benzodiazepines Scrn Urine Cocaine Screen U Cannabinoids Screen - Imaging Impressions Chest X-Ray 04/25/18 19:50 CONCLUSION: No evidence of acute cardiopulmonary process. Left upper lobe scarring; unchanged. Head CT 04/25/18 19:50 CONCLUSION: 1. Chronic ischemic changes with old infarcts in the left frontal lobe and right basal ganglia 2. Chronic ischemic white matter disease. 3. No evidence of acute infarct, hemorrhage, mass or edema. . Head MRI 04/26/18 00:00 CONCLUSION: 1. Remote left frontal lobe and right basal ganglia infarcts. 2. Moderate periventricular white matter ischemic demyelination, out of proportion to age. 3. No acute abnormality. Specifically, no evidence for acute infarction. Assessment and Plan - Assessment (1) TIA (transient ischemic attack) Code(s): G45.9 - Transient cerebral ischemic attack, unspecified Status: Acute (2) UTI (urinary tract infection) Code(s): N39.0 - Urinary tract infection, site not specified Status: Acute (3) Renal insufficiency Code(s): N28.9 - Disorder of kidney and ureter, unspecified Status: Acute - Plan 67-year-old female with a PMH of HTN, Hyperlipidemia, CAD s/p CABG and h/o CVA w / residual slurred speech/aphasia who was brought to the ER for possible stroke. Syncope: Patient with brief loss of consciousness followed by slurred speech. Now back to baseline. Suspect secondary to dehydration and marijuana use. However hx of CVA with residual expressive aphasia and right-sided weakness at baseline. Concern for TIA/CVA. -Head CT reviewed, no acute findings, previous left frontal/right basal ganglia infarcts -Brain MRI reviewed, no acute stroke -UDS positive for cannabinoids -Neurochecks -Monitor on telemetry -Continue aspirin and statin -Check lipid panel and HgbA1c -Check carotid ultrasound -Check EEG -Consult PT/ST -Consult patient's neurologist Dr. Doty UTI: U/a w/ UTI, possibly contributing to above -start Azactam IV -Give IVF for hydration. -Monitor urine culture ANAIS: Creatinine 1.91, previously 1.39 on 12/19/2016 -Give IVF for hydration -Avoid nephrotoxins -repeat labs in am. DVT Prophylaxis: SCD/Teds
--- NOTE | 2018-04-26 11:00 | P.CONNEU ---
History of Present Illness Service: Neurology Primary Care Provider: UNKNOWN Chief Complaint: Syncope History of Present Illness: 59-year-old female admitted for syncopal type episode. She apparently was with her family had a hamburger and some milkshake when suddenly they noticed her to have her head slumped over reduced responsiveness states these are foaming at the mouth. No involuntary movements. She does not recollect the episode. CT scan showed old infarcts no hemorrhage. Has a history of previous strokes with mild residual right hemiparesis. Takes aspirin daily. She is noted to be normotensive and then has since been hypertensive more reflective of her home blood pressures. Denies any history of seizures. Or any recent head trauma. Takes Xanax as needed for anxiety. Chronic pain syndrome for which she takes hydrocodone. Review of Systems All other systems reviewed negative except as stated in HPI PMFSH - History History Provided By: Patient - Medical History Medical History: Medical History (Last Updated 04/25/18 @ 18:21 by Gabrielle Sousa) HTN (hypertension) - Tobacco History Second Hand Smoke Exposure: No Tobacco Use In Past 30 Days: No Smoking Status: Never smoker Tobacco Type: Cigarettes - Alcohol History How Often Do You Have a Drink Containing Alcohol: Never - Substance Use History Substance History: Active Abuse - Substance Use Type Marijuana Status: Active Route Used: By Mouth Reason for Use: Calm Down - Travel History Recent Travel in the [place] Within the Last 8 Weeks: No Recent Travel Out of the Country Within the Last 8 Weeks: No - Immunization History Tetanus Immunization: Unsure Hx Influenza Vaccine This Season: Unable to Assess Medications and Allergies Active Medications: Active Medications Acetaminophen (Tylenol) 650 mg PO Q4H PRN PRN Reason: Temp > 100.4 Hydrocodone Bitart/Acetaminophen ([place] 5/325) 1 tab PO Q4H PRN PRN Reason: PAIN 3-5 Hydrocodone Bitart/Acetaminophen ([place] 10/325) 1 tab PO Q4H PRN PRN Reason: PAIN 6-10 Al Hydroxide/Mg Hydroxide (Milk Of Magnesia Liq) 30 ml PO Q12H PRN PRN Reason: Mild Constipation Aspirin (Ecotrin) 325 mg PO DAILY [facility] Last Admin: 04/26/18 08:24 Dose: 325 mg Bisacodyl (Dulcolax Supp) 10 mg RECTAL DAILY PRN PRN Reason: SEVERE CONSITIPATION Aztreonam 1,000 mg/ Sodium (Chloride) 100 mls @ 200 mls/hr IV.SIG Q8H [facility] Last Infusion: 04/26/18 06:40 Dose: Infused Sodium Chloride (Ns Inj) 1,000 mls @ 100 mls/hr IV.CONT .Q10H [facility] Last Infusion: 04/26/18 03:14 Dose: 100 mls/hr Lactulose (Lactulose Liq) 30 ml PO DAILY PRN PRN Reason: SEVERE CONSITIPATION Ondansetron HCl (Zofran Inj) 4 mg IV.PUSH Q6H PRN PRN Reason: NAUSEA OR VOMITING Pravastatin Sodium (Pravachol) 40 mg PO DAILY [facility] Last Admin: 04/26/18 08:24 Dose: 40 mg Senna/Docusate Sodium (Winter-Colace) 1 tab PO BID [facility] Last Admin: 04/26/18 08:24 Dose: 1 tab Sennosides (Senokot) 17.2 mg PO Q12H PRN PRN Reason: Moderate Constipation Sodium Chloride (Ns Flush) 2 ml IV.FLUSH PRN PRN PRN Reason: FLUSH AFTER USING IV ACCESS Allergies Allergy/AdvReac Type Severity Reaction Status Date / Time Fish Containing Products Allergy Intermediate Swelling Verified 04/25/18 18:17 penicillin G Allergy Intermediate swelling Verified 04/25/18 18:17 /hives all over Sulfa (Sulfonamide Allergy Mild swelling Verified 04/25/18 18:17 Antibiotics) ciprofloxacin Allergy Unknown swelling Verified 04/25/18 18:17 Exam Vital signs: Vital Signs 04/25/18 18:17 04/25/18 20:00 04/26/18 02:14 Temperature 98.4 F 97.9 F Pulse Rate 71 66 60 Respiratory Rate 16 16 16 Blood Pressure 121/71 120/68 164/84 H Pulse Oximetry 100 98 100 04/26/18 03:57 04/26/18 04:00 04/26/18 08:00 Temperature 97.6 F 98.4 F Pulse Rate 63 61 58 L Respiratory Rate 16 14 Blood Pressure 175/87 H 180/74 H Pulse Oximetry 92 L 100 Intake & Output 04/25/18 04/26/18 04/26/18 18:59 06:59 18:59 Intake Total 200 / 200 Balance 200 / 200 Weight 76.204 kg Intake: IV 200 / 200 NS Inj 1,000 ML @ 100 mls/hr IV 100 / 100 .CONT .Q10H [facility] Rx#:[id number] Azactam Inj 1,000 MG In NS Inj 100 / 100 100 ML @ 200 mls/hr IV.SIG Q8H [facility] Rx#:[id number] Narrative: Gen.: No acute distress, sitting up in bed pleasant, Head: Normocephalic. Atraumatic. EENT: Pupils equal round and reactive to light. Cardiovascular: Regular rate and rhythm Abdomen: Soft, nontender, nondistended. Musculoskeletal: No gross deformities. No edema. Skin: No obvious rashes or erythema. Neuro: Awake alert oriented 3 articulate, slightly dysarthric speech, mild right spastic hemiparesis with slow fine finger movements right and compared to the left Psych: Pleasant appropriate mood - Constitutional no acute distress - Routine HEENT Exam Head: Present: normocephalic Eye: Present: EOMI Results - Labs CBC & Chem 7: 04/25/18 20:45 04/25/18 20:45 Labs: Laboratory Results - last 24 hr 04/25/18 04/25/18 04/25/18 20:45 20:45 20:45 WBC 9.2 RBC 4.27 Hgb 13.2 Hct 38.1 MCV 89.2 MCH 30.9 MCHC 34.6 RDW 14.2 Plt Count 280 MPV 7.7 Neut % (Auto) 83.3 H Lymph % (Auto) 12.2 [place] % (Auto) 3.6 Eos % (Auto) 0.6 Baso % (Auto) 0.3 Neut # (Auto) 7.6 Lymph # (Auto) 1.1 [place] # (Auto) 0.3 Eos # (Auto) 0.1 Baso # (Auto) 0.0 WBC Differential . Differential Comment Auto diff final PT 11.2 INR 1.1 Sodium Potassium Chloride Carbon Dioxide Anion Gap BUN Creatinine Estimated GFR Random Glucose Calcium Magnesium 2.1 Total Bilirubin AST ALT Alkaline Phosphatase Troponin I Total Protein Albumin TSH 0.836 Urine Color Urine Clarity Urine pH Ur Specific [place] Urine Protein Urine Glucose (UA) Urine Ketones Urine Occult Blood Urine Nitrate Urine Bilirubin Urine Urobilinogen Ur Leukocyte Esterase Urine RBC Urine WBC Ur Squamous Epith Cells Calcium Oxalate Crystal Hyaline Casts Urine Mucus Micro UA Comment Ur Microscopic Review Urine Culture Comments Urine Opiates Screen Ur Barbiturates Screen Ur Amphetamines Screen U Benzodiazepines Scrn Urine Cocaine Screen U Cannabinoids Screen 04/25/18 04/25/18 04/25/18 20:45 21:30 21:30 WBC RBC Hgb Hct MCV MCH MCHC RDW Plt Count MPV Neut % (Auto) Lymph % (Auto) [place] % (Auto) Eos % (Auto) Baso % (Auto) Neut # (Auto) Lymph # (Auto) [place] # (Auto) Eos # (Auto) Baso # (Auto) WBC Differential Differential Comment PT INR Sodium 140 Potassium 3.9 Chloride 107 Carbon Dioxide 23.5 Anion Gap 10 BUN 28 H Creatinine 1.91 H Estimated GFR 32 L Random Glucose 122 H Calcium 8.8 Magnesium Total Bilirubin 0.3 AST 17 ALT 15 Alkaline Phosphatase 104 Troponin I Less than 0.02 L Total Protein 8.0 Albumin 3.2 L TSH Urine Color [place] Urine Clarity Cloudy H Urine pH 5.0 Ur Specific [place] 1.027 Urine Protein Negative Urine Glucose (UA) Negative Urine Ketones Negative Urine Occult Blood Small H Urine Nitrate Negative Urine Bilirubin Negative Urine Urobilinogen 4 or greater Ur Leukocyte Esterase Large H Urine RBC 8 H Urine WBC 30 H Ur Squamous Epith Cells 8 Calcium Oxalate Crystal Few H Hyaline Casts 4 Urine Mucus Few H Micro UA Comment Culture indicated Ur Microscopic Review Not Reportable Urine Culture Comments Culture indicated Urine Opiates Screen Neg Ur Barbiturates Screen Neg Ur Amphetamines Screen Neg U Benzodiazepines Scrn Neg Urine Cocaine Screen Neg U Cannabinoids Screen Pos H 04/26/18 00:50 WBC RBC Hgb Hct MCV MCH MCHC RDW Plt Count MPV Neut % (Auto) Lymph % (Auto) [place] % (Auto) Eos % (Auto) Baso % (Auto) Neut # (Auto) Lymph # (Auto) [place] # (Auto) Eos # (Auto) Baso # (Auto) WBC Differential Differential Comment PT INR Sodium Potassium Chloride Carbon Dioxide Anion Gap BUN Creatinine Estimated GFR Random Glucose Calcium Magnesium Total Bilirubin AST ALT Alkaline Phosphatase Troponin I Less than 0.02 L Total Protein Albumin TSH Urine Color Urine Clarity Urine pH Ur Specific [place] Urine Protein Urine Glucose (UA) Urine Ketones Urine Occult Blood Urine Nitrate Urine Bilirubin Urine Urobilinogen Ur Leukocyte Esterase Urine RBC Urine WBC Ur Squamous Epith Cells Calcium Oxalate Crystal Hyaline Casts Urine Mucus Micro UA Comment Ur Microscopic Review Urine Culture Comments Urine Opiates Screen Ur Barbiturates Screen Ur Amphetamines Screen U Benzodiazepines Scrn Urine Cocaine Screen U Cannabinoids Screen - Imaging Impressions Chest X-Ray 04/25/18 19:50 CONCLUSION: No evidence of acute cardiopulmonary process. Left upper lobe scarring; unchanged. Head CT 04/25/18 19:50 CONCLUSION: 1. Chronic ischemic changes with old infarcts in the left frontal lobe and right basal ganglia 2. Chronic ischemic white matter disease. 3. No evidence of acute infarct, hemorrhage, mass or edema. . Head MRI 04/26/18 00:00 CONCLUSION: 1. Remote left frontal lobe and right basal ganglia infarcts. 2. Moderate periventricular white matter ischemic demyelination, out of proportion to age. 3. No acute abnormality. Specifically, no evidence for acute infarction. Review/Management - Diagnosis (1) Chronic ischemic multifocal anterior circulation stroke Code(s): I69.30 - Unspecified sequelae of cerebral infarction Status: Acute Current Visit: Yes (2) Hypertension Code(s): I10 - Essential (primary) hypertension Status: Acute Current Visit : Yes (3) Syncope Code(s): R55 - Syncope and collapse Status: Acute Current Visit: Yes (4) TIA (transient ischemic attack) Code(s): G45.9 - Transient cerebral ischemic attack, unspecified Status: Acute Current Visit: Yes (5) UTI (urinary tract infection) Code(s): N39.0 - Urinary tract infection, site not specified Status: Acute Current Visit: Yes (6) Renal insufficiency Code(s): N28.9 - Disorder of kidney and ureter, unspecified Status: Acute Current Visit: Yes - Review/Management Plan: Spells sounds more suggestive of syncope. This may be related to vasovagal, orthostatic, dehydration. Unlikely to be a TIA. Seizure another possibility MRI brain scan negative for acute stroke Recommendations Continue antiplatelet. Follow-up lipids HbA1c Follow-up EEG Telemetry Further workup for syncope per medical Hydration DC planning in a.m. if no further episodes from neurological standpoint
--- NOTE | 2018-04-26 13:03 | ECG ---
Date Performed: 04/25/2018 Time Performed: 21:27:00 PTAGE: 67 years EKG: Sinus rhythm RIGHT BUNDLE BRANCH BLOCK LEFT ANTERIOR FASCICULAR BLOCK INFERIOR MYOCARDIAL INFARCTION MODERATE T-W AVE ABNORMALITY, CONSIDER LATERAL ISCHEMIA ABNORMAL ECG Since the PREVIOUS TRACING , no significant change noted PREVIOUS TRACIN12/20/2016 02.35 DOCTOR: Trevor Chapman Interpretating Date/Time 04/26/2018 13:01:27
--- NOTE | 2018-04-26 13:03 | ECG ---
Date Performed: 04/26/2018 Time Performed: 00:36:23 PTAGE: 67 years EKG: Sinus rhythm WITH FIRST DEGREE AV BLOCK RIGHT BUNDLE BRANCH BLOCK POSSIBLE SEPTAL MYOCARDIAL INFARCTION INFERIOR MYOCARDIAL INFARCTION MODERATE T-WAVE ABNORMALITY, CONSIDER LATERAL ISCHEMIA ABNORMAL ECG Since the PREVIOUS TRACING , no significant change noted PREVIOUS TRACIN04/25/2018 21.27 DOCTOR: Trevor Chapman Interpretating Date/Time 04/26/2018 13:01:38
--- NOTE | 2018-04-26 17:30 | US ---
EXAM DATE: 04/26/2018 5:22 PM EDT AGE/SEX: 67 years / Female INDICATIONS: Transient ischemic attack. CLINICAL DATA: This is the patient's initial encounter. Patient reports that signs and symptoms have been present for 1 day and indicates a pain score of 0/10. MEDICAL/SURGICAL HISTORY: Hypertension. None. COMPARISON: No prior exams available for comparison. VELOCITY PARAMETERS: ICA/CCA Ratio: Right 1.3 , Left 0.8 ICA: Right 105 cm/sec, Left 63.7 cm/sec CCA: Right 69.6 cm/sec, Left 64.2 cm/sec ECA: Right 105 cm/sec, Left 63.7 cm/sec Vertebral: Right 49.4 cm/sec antegrade, Left 22.3 cm/sec antegrade FINDINGS: Right Carotid: Mild to moderate arteriosclerotic plaque is visualized.The waveforms are within miguel l limits. Left Carotid: Mild arteriosclerotic plaque is visualized. The waveforms are within normal limits. Other: None. CONCLUSION: 1. Right Internal Carotid Artery: Findings indicate <50% stenosis. 2. Left Internal Carotid Artery: No significant stenosis; mild atherosclerotic plaque is visualized. 3. Antegrade flow both vertebral arteries. Electronically signed by: Valdez Cunha MD 04/26/2018 5:28 PM EDT
--- NOTE | 2018-04-26 23:17 | MG ---
cc: Jaylon Doty MD ELECTROENCEPHALOGRAM RECORD NUMBER: [id number] Bitemporal sharply contoured waveforms. Increased beta frequency has and some myogenic artifact in the frontal channels, 20-50 microvolts. Background theta and alpha frequencies. There is no driving with photic stimulation. Some movement, myogenic artifact per mouth and eye. Single lead EKG showing sinus rhythm. INTERPRETATION: Mild nonspecific changes noted above, slight increase in beta frequencies. Clinical correlation. MD MILY Christianson/tahir/kayden , 09:17 PM , 09:22 PM
[2018-04-27] MEDS: Sod Chloride 0.9% Inj 1,000 ML IV.CONT SCH ×2 (03:09→07:59)
[2018-04-27] MEDS: Senna/Docusate Sodium 8.6/50 MG Tablet PO SCH (08:43)
--- NOTE | 2018-04-27 08:52 | P.PNNEU ---
Subjective Subjective Comments: Slept well, no events no syncope, feels well. No chest pain or dyspnea Active Medications: Active Medications Acetaminophen (Tylenol) 650 mg PO Q4H PRN PRN Reason: Temp > 100.4 Hydrocodone Bitart/Acetaminophen ([place] 5/325) 1 tab PO Q4H PRN PRN Reason: PAIN 3-5 Hydrocodone Bitart/Acetaminophen ([place] 10/325) 1 tab PO Q4H PRN PRN Reason: PAIN 6-10 Last Admin: 04/26/18 21:47 Dose: 1 tab Al Hydroxide/Mg Hydroxide (Milk Of Magnesia Liq) 30 ml PO Q12H PRN PRN Reason: Mild Constipation Amlodipine Besylate (Norvasc) 5 mg PO DAILY [facility] Last Admin: 04/27/18 08:44 Dose: 5 mg Aspirin (Ecotrin) 325 mg PO DAILY [facility] Last Admin: 04/27/18 08:43 Dose: 325 mg Bisacodyl (Dulcolax Supp) 10 mg RECTAL DAILY PRN PRN Reason: SEVERE CONSITIPATION Aztreonam 1,000 mg/ Sodium (Chloride) 100 mls @ 200 mls/hr IV.SIG Q8H [facility] Last Infusion: 04/27/18 07:36 Dose: Infused Sodium Chloride (Ns Inj) 1,000 mls @ 100 mls/hr IV.CONT .Q10H [facility] Last Admin: 04/27/18 07:59 Dose: Not Given Lactulose (Lactulose Liq) 30 ml PO DAILY PRN PRN Reason: SEVERE CONSITIPATION Ondansetron HCl (Zofran Inj) 4 mg IV.PUSH Q6H PRN PRN Reason: NAUSEA OR VOMITING Pravastatin Sodium (Pravachol) 40 mg PO DAILY [facility] Last Admin: 04/27/18 08:44 Dose: 40 mg Senna/Docusate Sodium (Winter-Colace) 1 tab PO BID [facility] Last Admin: 04/27/18 08:43 Dose: 1 tab Sennosides (Senokot) 17.2 mg PO Q12H PRN PRN Reason: Moderate Constipation Sodium Chloride (Ns Flush) 2 ml IV.FLUSH PRN PRN PRN Reason: FLUSH AFTER USING IV ACCESS Allergies/Adverse Reactions: Allergies Allergy/AdvReac Type Severity Reaction Status Date / Time Fish Containing Products Allergy Intermediate Swelling Verified 04/25/18 18:17 penicillin G Allergy Intermediate swelling Verified 04/25/18 18:17 /hives all over Sulfa (Sulfonamide Allergy Mild swelling Verified 04/25/18 18:17 Antibiotics) ciprofloxacin Allergy Unknown swelling Verified 04/25/18 18:17 Review of Systems All other systems reviewed negative except as stated in HPI Physical Exam Vital signs: Vital Signs 04/26/18 12:00 04/26/18 16:00 04/26/18 19:48 Temperature 97.5 F L 97.8 F 98.8 F Pulse Rate 57 L 60 62 Respiratory Rate 16 14 17 Blood Pressure 185/81 H 165/74 H 148/81 H Pulse Oximetry 100 100 99 04/26/18 20:00 04/26/18 23:37 04/27/18 03:39 Temperature 98.1 F 97.8 F Pulse Rate 60 64 Respiratory Rate 16 16 17 Blood Pressure 176/90 H 169/85 H Pulse Oximetry 99 100 94 L 04/27/18 04:00 Temperature Pulse Rate 54 L Respiratory Rate Blood Pressure Pulse Oximetry Intake & Output 04/26/18 04/27/18 04/27/18 18:59 06:59 18:59 Intake Total 100 / 100 1100 / 1100 100 / 100 Output Total 1150 / 1150 Balance 100 / 100 -50 / -50 100 / 100 Intake: IV 100 / 100 1100 / 1100 100 / 100 NS Inj 1,000 ML @ 100 mls/hr IV 1000 / 1000 .CONT .Q10H [facility] Rx#:[id number] Azactam Inj 1,000 MG In NS Inj 100 / 100 100 / 100 100 / 100 100 ML @ 200 mls/hr IV.SIG Q8H [facility] Rx#:[id number] Output: Urine 1150 / 1150 Other: # Voids 5 Narrative: GENERAL: Well-nourished, well-developed pleasant female patient in [facility]. SKIN: Warm and dry. No rash. HEENT: Normocephalic. Atraumatic. Pupils equal and round. Mucous membranes pink and moist. CARDIOVASCULAR: Regular rate and rhythm. RESPIRATORY: No accessory muscle use. Clear to auscultation. Breath sounds equal bilaterally. GASTROINTESTINAL: Abdomen soft, non-tender, nondistended. MUSCULOSKELETAL: No obvious deformities. Extremities without clubbing, cyanosis , or edema. NEUROLOGICAL: Awake and alert. No obvious cranial nerve deficits. Moving all extremities spontaneously, mild right spastic hemiparesis strength 5- out of 5. Right-sided facial droop with flattening of nasolabial fold compared to the left. Slightly dysarthric speech PSYCHIATRIC: Appropriate mood and affect; insight and judgment normal. - Constitutional no acute distress - Routine HEENT Exam Head: Present: normocephalic Eye: Present: EOMI Objective Microbiology 04/25/18 21:30 Urine Culture - Preliminary Clean Catch Urine No growth. Review/Management - Diagnosis (1) Chronic ischemic multifocal anterior circulation stroke Code(s): I69.30 - Unspecified sequelae of cerebral infarction Status: Acute Current Visit: Yes (2) Hypertension Code(s): I10 - Essential (primary) hypertension Status: Acute Current Visit : Yes (3) Syncope Code(s): R55 - Syncope and collapse Status: Acute Current Visit: Yes (4) TIA (transient ischemic attack) Code(s): G45.9 - Transient cerebral ischemic attack, unspecified Status: Acute Current Visit: Yes (5) UTI (urinary tract infection) Code(s): N39.0 - Urinary tract infection, site not specified Status: Acute Current Visit: Yes (6) Renal insufficiency Code(s): N28.9 - Disorder of kidney and ureter, unspecified Status: Acute Current Visit: Yes - Review/Management Plan: Spells sounds more suggestive of syncope. This may be related to vasovagal, orthostatic, dehydration. Unlikely to be a TIA. Seizure another possibility MRI brain scan negative for acute stroke Recommendations EEG with mild nonspecific changes. Seizure possibility. We will start Depakote. Side effects benefits discussed with patient. Agrees to treatment Therapy No driving DC planning today from my standpoint. Follow-up in the office a few weeks
[2018-04-27] MEDS ORDERED: Divalproex 250 MG ER Tablet PO SCH (09:00)
[2018-04-27] MEDS ORDERED: amLODIPine 5 MG Tablet PO SCH (09:00)
--- NOTE | 2018-04-27 09:18 | P.PN ---
Subjective Interval history: Follow-up for syncope, expressive aphasia, dehydration. The patient reports feeling much better today. She denies any lightheadedness or dizziness. She has been ambulating her room without difficulty. Discussed PTs recommendation for rehab, however patient does not want to go to any rehab facility. She states she does very well going to outpatient rehab twice a week and she still has 4 weeks left. She denies any worsening weakness from baseline secondary to her old stroke. She is tolerating oral intake. She wants to go home. She has no other medical complaints at this time. Physical Exam Vital signs: Vital Signs 04/26/18 12:00 04/26/18 16:00 04/26/18 19:48 Temperature 97.5 F L 97.8 F 98.8 F Pulse Rate 57 L 60 62 Respiratory Rate 16 14 17 Blood Pressure 185/81 H 165/74 H 148/81 H Pulse Oximetry 100 100 99 04/26/18 20:00 04/26/18 23:37 04/27/18 03:39 Temperature 98.1 F 97.8 F Pulse Rate 60 64 Respiratory Rate 16 16 17 Blood Pressure 176/90 H 169/85 H Pulse Oximetry 99 100 94 L 04/27/18 04:00 Temperature Pulse Rate 54 L Respiratory Rate Blood Pressure Pulse Oximetry Intake & Output 04/26/18 04/27/18 04/27/18 18:59 06:59 18:59 Intake Total 100 / 100 1100 / 1100 100 / 100 Output Total 1150 / 1150 Balance 100 / 100 -50 / -50 100 / 100 Intake: IV 100 / 100 1100 / 1100 100 / 100 NS Inj 1,000 ML @ 100 mls/hr IV 1000 / 1000 .CONT .Q10H [facility] Rx#:[id number] Azactam Inj 1,000 MG In NS Inj 100 / 100 100 / 100 100 / 100 100 ML @ 200 mls/hr IV.SIG Q8H [facility] Rx#:[id number] Output: Urine 1150 / 1150 Other: # Voids 5 Narrative: GENERAL: Well-nourished, well-developed pleasant female patient in [facility]. SKIN: Warm and dry. No rash. HEENT: Normocephalic. Atraumatic. Pupils equal and round. Mucous membranes pink and moist. CARDIOVASCULAR: Regular rate and rhythm. RESPIRATORY: No accessory muscle use. Clear to auscultation. Breath sounds equal bilaterally. GASTROINTESTINAL: Abdomen soft, non-tender, nondistended. MUSCULOSKELETAL: No obvious deformities. Extremities without clubbing, cyanosis , or edema. NEUROLOGICAL: Awake and alert. No obvious cranial nerve deficits. Moving all extremities spontaneously, mild right spastic hemiparesis. Right-sided facial droop with flattening of nasolabial fold compared to the left. Slightly dysarthric speech, at baseline. PSYCHIATRIC: Appropriate mood and affect; insight and judgment normal. Results - Labs CBC & Chem 7: 04/27/18 09:16 04/27/18 09:16 Microbiology 04/25/18 21:30 Clean Catch Urine Urine Culture - Preliminary No growth. - Imaging Impressions Chest X-Ray 04/25/18 19:50 CONCLUSION: No evidence of acute cardiopulmonary process. Left upper lobe scarring; unchanged. Head CT 04/25/18 19:50 CONCLUSION: 1. Chronic ischemic changes with old infarcts in the left frontal lobe and right basal ganglia 2. Chronic ischemic white matter disease. 3. No evidence of acute infarct, hemorrhage, mass or edema. . Carotid Doppler Study 04/26/18 00:00 CONCLUSION: 1. Right Internal Carotid Artery: Findings indicate <50% stenosis. 2. Left Internal Carotid Artery: No significant stenosis; mild atherosclerotic plaque is visualized. 3. Antegrade flow both vertebral arteries. Head MRI 04/26/18 00:00 CONCLUSION: 1. Remote left frontal lobe and right basal ganglia infarcts. 2. Moderate periventricular white matter ischemic demyelination, out of proportion to age. 3. No acute abnormality. Specifically, no evidence for acute infarction. Assessment and Plan - Assessment (1) TIA (transient ischemic attack) Code(s): G45.9 - Transient cerebral ischemic attack, unspecified Status: Acute (2) UTI (urinary tract infection) Code(s): N39.0 - Urinary tract infection, site not specified Status: Acute (3) Renal insufficiency Code(s): N28.9 - Disorder of kidney and ureter, unspecified Status: Acute - Plan 67-year-old female with a PMH of HTN, Hyperlipidemia, CAD s/p CABG and h/o CVA w / residual slurred speech/aphasia who was brought to the ER for possible stroke. Syncope: Patient with brief loss of consciousness followed by slurred speech. Now back to baseline. Suspect secondary to dehydration and marijuana use. However hx of CVA with residual expressive aphasia and right-sided weakness at baseline. Concern for TIA/CVA vs seizure. -Head CT reviewed, no acute findings, previous left frontal/right basal ganglia infarcts -Brain MRI reviewed, no acute stroke -UDS positive for cannabinoids -Neurochecks, Monitor on telemetry, no arrhythmias -Continue aspirin and statin -Lipid panel with elevated LDL of 109, continue statin -Hemoglobin A1c pending however fasting blood glucose of 95 this morning -Carotid ultrasound reviewed, shows less than 50% stenosis of right ICA, no significant stenosis and mild plaque of left ICA -EEG slightly abnormal, started on Depakote per neurology -Consult PT recommending rehab, however patient declines rehab at this time, wants to continue her outpatient physical therapy -Consulted ST, recommends mechanical soft, chopped meat with gravy, and nectar thickened liquids -Consult patient's neurologist Dr. Doty, started on Depakote as above with abnormal EEG, cleared for discharge, outpatient follow-up UTI: U/a w/ UTI, possibly contributing to above -Given Azactam IV (multiple antibiotic allergies) -Give IVF for hydration. -Urine culture with mixed tea, probable contaminants, will discontinue antibiotics ANAIS: Creatinine 1.91, previously 1.39 on 12/19/2016 -Give IVF for hydration -Avoid nephrotoxins -repeat labs show much improvement with creatinine 1.13 today, stable for discharge Hypertension: Patient's BP consistently elevated throughout admission -Started on Norvasc 5 mg daily -Outpatient follow-up DVT Prophylaxis: SCD/Teds Discharge Planning: Patient appears back to her baseline. Stable for discharge. Cleared for discharge by neurology. Discharge patient to home Condition on discharge: Stable Heart healthy diet as tolerated [place] activity, no driving, seizure precautions Rx written: Aspirin 81 mg daily, pravastatin 40 mg, Norvasc 5 mg, Depakote 250 mg bid Follow-up with primary care physician and neurology Dr. Doty
[2018-04-27 09:29] VITALS: BP 160/72; RESP 16; TEMP 98.2
[2018-04-27 10:01] LABS: Alanine Aminotransferase 13 U/L (10-53); Aspartate Aminotransferase 13 U/L (15-37); Cholesterol 179 mg/dL (120-200); Triglycerides 68 mg/dL (42-150)
[2018-04-27 10:02] LABS: Baso % (Auto) 0.3 % (0.0-2.0); Eos # (Auto) 0.1 th/mm3 (0.0-0.4); Eos % (Auto) 2.6 % (0.0-4.0); Hematocrit 41.2 % (35.0-46.0); Hemoglobin 13.1 gm/dL (11.6-15.3); Lymph # (Auto) 1.3 th/mm3 (1.0-4.8); Lymph % (Auto) 24.2 % (9.0-44.0); Mean Corpuscular HGB Conc 31.7 % (32.0-36.0); Mean Corpuscular Hemoglobin 29.4 pg (27.0-34.0); Mean Corpuscular Volume 92.7 fL (80.0-100.0); Mean Platelet Volume 7.7 fL (7.0-11.0); Mono # (Auto) 0.2 th/mm3 (0.0-0.9); Mono % (Auto) 4.8 % (0.0-8.0); Neut # (Auto) 3.6 th/mm3 (1.8-7.7); Neut % (Auto) 68.1 % (16.0-70.0); Platelet Count 241 th/mm3 (150-450); Red Blood Count 4.44 mil/mm3 (4.00-5.30); Red Cell Distribution Width 14.8 % (11.6-17.2); White Blood Count 5.2 th/mm3 (4.0-11.0)
[2018-04-27 10:03] LABS: Alkaline Phosphatase 103 U/L (45-117); Chol/HDL Ratio 3.15 Ratio; HDL Cholesterol 56.7 mg/dL (40.0-60.0); LDL Cholesterol,Calculated 109 mg/dL (0-99); Total Protein 7.8 g/dL (6.4-8.2)
[2018-04-27 10:10] LABS: Calcium 8.6 mg/dL (8.5-10.1); Carbon Dioxide 23.3 meq/L (21.0-32.0); Potassium 4.1 meq/L (3.5-5.1)
[2018-04-27 10:14] VITALS: O2SAT 99
[2018-04-27 11:25] VITALS: PULSE 64
[2018-04-27 21:49] LABS: Hemoglobin A1c 6.3 % (4.3-6.0)
== END 2018-04-27 11:55 | disposition home or self-care (01) ==
LOC: NEDA 18:05 → NEPC 18:05 → NEPHCDU 04-26 01:47
PROVIDERS: ADMIT Hospitalist; ATTEND Hospitalist

== ENCOUNTER 2018-05-08 00:49 | Observation (INO) ==
--- NOTE | 2018-05-08 01:26 | ED ---
HPI General Chief Complaint: Chest Pain Stated Complaint: EVAC/Chest Pain Time Seen by Provider: 05/08/18 00:59 Source: patient and EMS Mode of arrival: EMS Limitations: other (Patient is a little bit of a poor historian and does not give much detail about her previous treatments or her past medical history.) History of Present Illness HPI narrative: This 68-year-old woman presents to the emergency department wanting of chest pain and left arm pain. She states the pain is primarily in the left arm. Symptoms started tonight. She has pain typically similar every night. She takes nitroglycerin and her pain medication the pain goes away. She states tonight she took her medications and multiple doses nitroglycerin without relief of the pain. States the pain is moderately severe. This been persistent since onset. No shortness of breath. Otherwise has been in her usual state of health. Recently admitted for altered mental status. She followed up with Dr. Doty. She has been doing her physical therapy. She is a history of CAD with previous CABG remotely, also history of CVA with some persistent slurred speech and aphasia, no other complaints. Complete Quality Measures for STEMI Alert Patients Related Data Home Medications Medication Instructions Recorded Confirmed alprazolam [Xanax] 1 mg PO BID 05/08/18 05/08/18 atorvastatin 20 mg PO DAILY 05/08/18 05/08/18 hydrocodone-acetaminophen PO PRN 05/08/18 nitroglycerin 0.4 mg SUBLINGUAL Q5-15M PRN 05/08/18 05/08/18 omeprazole 20 mg PO DAILY 05/08/18 05/08/18 pravastatin 40 mg PO DAILY 05/08/18 05/08/18 Previous Rx's Medication Instructions Recorded amlodipine [Norvasc] 5 mg PO DAILY #30 tab 04/27/18 aspirin [Ecotrin Low Strength] 81 mg PO DAILY #30 tab 04/27/18 divalproex [Depakote ER] 250 mg PO BID #60 tab 04/27/18 Allergies Allergy/AdvReac Type Severity Reaction Status Date / Time Fish Containing Products Allergy Intermediate Swelling Verified 05/08/18 00:51 penicillin G Allergy Intermediate swelling Verified 05/08/18 00:51 /hives all over Sulfa (Sulfonamide Allergy Mild swelling Verified 05/08/18 00:51 Antibiotics) ciprofloxacin Allergy Unknown swelling Verified 05/08/18 00:51 Review of Systems ROS: all other systems reviewed are negative [facility] Medical History Medical History CVA (cerebral vascular accident) (Acute) Dyslipidemia (Acute) Marijuana use (Acute) CAD (coronary artery disease) (Chronic) HTN (hypertension) (Chronic) Social History Social History Substance History: No History of Abuse Second Hand Smoke Exposure: No Smoking Status: Former smoker Tobacco Type: Cigarettes How Often Do You Have a Drink Containing Alcohol: Never Recent Travel in [email or web address] within the Last 8 Weeks: No Recent Out of Country Travel within the Last 8 Weeks: No Exam Narrative Exam Narrative: GENERAL: Well-appearing 68-year-old woman, no acute distress. SKIN: Focused skin assessment warm/dry. HEAD: Atraumatic. Normocephalic. EYES: Pupils equal and round. No scleral icterus. No injection or drainage. ENT: No nasal bleeding or discharge. Mucous membranes pink and moist. NECK: Trachea midline. No JVD. CARDIOVASCULAR: Regular rate and rhythm. No murmur appreciated. RESPIRATORY: No accessory muscle use. Clear to auscultation. Breath sounds equal bilaterally. GASTROINTESTINAL: Abdomen soft, non-tender, nondistended. Hepatic and splenic margins not palpable. MUSCULOSKELETAL: No obvious deformities. No edema. NEUROLOGICAL: Awake and alert. No obvious cranial nerve deficits. Motor grossly within normal limits. Normal speech. Course Initial Documented Vital Signs Temperature 98.6 F 05/08/18 00:56 Pulse Rate 120 H 05/08/18 00:56 Respiratory Rate 20 05/08/18 00:56 Blood Pressure 146/104 H 05/08/18 00:56 Pulse Oximetry 97 05/08/18 00:56 Last Documented Vital Signs Temperature 98.3 F 05/08/18 01:05 Pulse Rate 105 H 05/08/18 02:20 Respiratory Rate 18 05/08/18 02:20 Blood Pressure 164/70 H 05/08/18 02:20 Pulse Oximetry 97 05/08/18 02:20 Medical Decision Making MDM Narrative Medical decision making narrative: This 68-year-old woman presents emerged department with chest pain and left arm pain, similar to pain that she has each night that is relieved with nitroglycerin. Reviewing her records she had a stress test following admission to [facility] about a year or so ago. This stress test was somewhat equivocal with a small area of probable ischemia and a lot of artifact. Does not look like she was cathed after that. She has done well nonetheless. She says she does not follow with a time broker. Recent hospital admission and follow-up with Dr. Doty for altered mental status. No other complaints. Medical Screen Exam Complete: Yes Emergency Medical Condition: Yes Lab Data Lab results reviewed: Yes I reviewed the patient's lab results. Result diagrams: 05/08/18 02:00 05/08/18 02:00 Lab Results 05/08/18 05/08/18 05/08/18 Range/Units 02:00 02:00 02:00 CBC w Diff Auto diff final WBC 8.2 (4.0-11.0) th/mm3 RBC 4.45 (4.00-5.30) mil/mm3 Hgb 13.3 (11.6-15.3) gm/dL Hct 40.5 (35.0-46.0) % MCV 91.1 (80.0-100.0) fL MCH 29.8 (27.0-34.0) pg MCHC 32.7 (32.0-36.0) % RDW 13.7 (11.6-17.2) % Plt Count 297 (150-450) th/mm3 MPV 8.9 (7.0-11.0) fL Neut % (Auto) 72.6 H (16.0-70.0) % Lymph % (Auto) 18.7 (9.0-44.0) % [place] % (Auto) 3.4 (0.0-8.0) % Eos % (Auto) 1.4 (0.0-4.0) % Baso % (Auto) 3.9 H (0.0-2.0) % Neut # (Auto) 6.0 (1.8-7.7) th/mm3 Lymph # (Auto) 1.5 (1.0-4.8) th/mm3 [place] # (Auto) 0.3 (0.0-0.9) th/mm3 Eos # (Auto) 0.1 (0.0-0.4) th/mm3 Baso # (Auto) 0.3 H (0.0-0.2) th/mm3 WBC Differential . Differential Comment . PT 10.8 (9.8-11.6) sec INR 1.1 Ratio APTT 26.6 (24.3-30.1) sec Sodium 139 (136-145) meq/L Potassium 4.9 (3.5-5.1) meq/L Chloride 106 (98-107) meq/L Carbon Dioxide 24.4 (21.0-32.0) meq/L Anion Gap 9 (5-15) meq/L BUN 21 H (7-18) mg/dL Creatinine 1.60 H (0.50-1.00) mg/dL Estimated GFR 39 L (>89) mL/min Random Glucose 157 H (74-106) mg/dL Calcium 8.6 (8.5-10.1) mg/dL Total Bilirubin 0.4 (0.2-1.0) mg/dL AST 31 (15-37) U/L ALT 18 (10-53) U/L Alkaline Phosphatase 88 (45-117) U/L Troponin I 0.22 H (0.02-0.05) ng/mL B-Natriuretic Peptide (0-100) pg/mL Total Protein 8.4 H (6.4-8.2) g/dL Albumin 3.1 L (3.4-5.0) g/dL 05/08/18 Range/Units 02:00 CBC w Diff WBC (4.0-11.0) th/mm3 RBC (4.00-5.30) mil/mm3 Hgb (11.6-15.3) gm/dL Hct (35.0-46.0) % MCV (80.0-100.0) fL MCH (27.0-34.0) pg MCHC (32.0-36.0) % RDW (11.6-17.2) % Plt Count (150-450) th/mm3 MPV (7.0-11.0) fL Neut % (Auto) (16.0-70.0) % Lymph % (Auto) (9.0-44.0) % [place] % (Auto) (0.0-8.0) % Eos % (Auto) (0.0-4.0) % Baso % (Auto) (0.0-2.0) % Neut # (Auto) (1.8-7.7) th/mm3 Lymph # (Auto) (1.0-4.8) th/mm3 [place] # (Auto) (0.0-0.9) th/mm3 Eos # (Auto) (0.0-0.4) th/mm3 Baso # (Auto) (0.0-0.2) th/mm3 WBC Differential Differential Comment PT (9.8-11.6) sec INR Ratio APTT (24.3-30.1) sec Sodium (136-145) meq/L Potassium (3.5-5.1) meq/L Chloride (98-107) meq/L Carbon Dioxide (21.0-32.0) meq/L Anion Gap (5-15) meq/L BUN (7-18) mg/dL Creatinine (0.50-1.00) mg/dL Estimated GFR (>89) mL/min Random Glucose (74-106) mg/dL Calcium (8.5-10.1) mg/dL Total Bilirubin (0.2-1.0) mg/dL AST (15-37) U/L ALT (10-53) U/L Alkaline Phosphatase (45-117) U/L Troponin I (0.02-0.05) ng/mL B-Natriuretic Peptide 65 (0-100) pg/mL Total Protein (6.4-8.2) g/dL Albumin (3.4-5.0) g/dL Imaging Data Radiologist's impression: Chest X-Ray 05/08/18 01:18 CONCLUSION: No acute findings in the chest. ECG Data Attestation: I personally reviewed and interpreted this ECG as follows: Prior ECG tracings: available for review Interpretation: Sinus tachycardia at a rate of 124, right bundle branch block, leftward axis, inferior Q waves suggestive of ischemia. Possible anteroseptal Q waves. Lateral ST depressions suggest acute ischemia. Compared to previous EKG from April 20, 2018, lateral ST depressions are significantly more pronounced. Discharge Plan Physicians Team ED Provider: Ammon Israel Primary Care Provider: Jodie Giraldo Rxs /Orders / Referrals /Forms Prescriptions: No Action amlodipine [Norvasc] 5 mg Tablet 5 mg PO DAILY Qty: 30 RF: 0 divalproex [Depakote ER] 250 mg Tablet Extended Release 24 Hr 250 mg PO BID Qty: 60 RF: 0 aspirin [Ecotrin Low Strength] 81 mg Tablet,Delayed Release (Dr/Ec) 81 mg PO DAILY Qty: 30 RF: 0 atorvastatin 20 mg Tablet 20 mg PO DAILY RF: 0 pravastatin 40 mg Tablet 40 mg PO DAILY RF: 0 alprazolam [Xanax] 1 mg Tablet 1 mg PO BID RF: 0 hydrocodone-acetaminophen 10-325 mg Tablet PO PRN RF: 0 nitroglycerin 0.4 mg Tablet, Sublingual 0.4 mg SUBLINGUAL Q5-15M PRN (Reason: Chest Pain) RF: 0 omeprazole 20 mg Capsule,Delayed Release(Dr/Ec) 20 mg PO DAILY RF: 0 Status ED Status: With Doctor
--- NOTE | 2018-05-08 01:45 | XR ---
EXAM DATE: 05/08/2018 1:38 AM EDT AGE/SEX: 68 years / Female INDICATIONS: Chest pain today. CLINICAL DATA: This is the patient's initial encounter. Patient reports that signs and symptoms have been present for 1 day and indicates a pain score of 8/10. MEDICAL/SURGICAL HISTORY: . Diabetes mellitus type II. Chronic obstructive pulmonary disease. H ypertension. . CABG. Hysterectomy. Cervical fusion. COMPARISON: C, CHEST 1V SINGLE AP, 04/25/2018. [facility] [place] SING[place], 12/19/2016. [facility] [place], CHEST PA & LAT, 07/07/2013. . FINDINGS: The right lung is clear. No focal infiltrates seen in the left lung. Opacity adjacent to the left hea rt border is unchanged from prior chest x-rays and probably represents anterior mediastinal fat. Both hemidiaphragms are well delineated. Evidence of prior median sternotomy and CABG. Multiple hemoclips along the left mediastinal margin, stable. Moderate severity right thoracic scoliosis and deformity of the lateral right second through fourth ribs, stable from prior. No evidence of pneumothorax. [place] llic density adjacent to the left clavicle unchanged from prior. CONCLUSION: No acute findings in the chest. Electronically signed by: Bennie Avelar MD 05/08/2018 1:43 AM EDT
[2018-05-08 02:13] LABS: Chloride 106 meq/L (98-107); Sodium 139 meq/L (136-145)
[2018-05-08 02:16] LABS: Calcium 8.6 mg/dL (8.5-10.1)
[2018-05-08 02:17] LABS: Activated Partial Thrombo Time 26.6 sec (24.3-30.1); Albumin 3.1 g/dL (3.4-5.0); Anion Gap 9 meq/L (5-15); Blood Urea Nitrogen 21 mg/dL (7-18); Carbon Dioxide 24.4 meq/L (21.0-32.0); Glucose,Random 157 mg/dL (74-106); INR 1.1 Ratio; Prothrombin Time 10.8 sec (9.8-11.6)
[2018-05-08 02:20] LABS: Alanine Aminotransferase 18 U/L (10-53); Aspartate Aminotransferase 31 U/L (15-37); Glomerular Filtration Rate 39 mL/min (>89)
[2018-05-08 02:22] LABS: Total Protein 8.4 g/dL (6.4-8.2)
[2018-05-08 02:23] LABS: Alkaline Phosphatase 88 U/L (45-117)
[2018-05-08 02:25] LABS: Troponin I 0.22 ng/mL (0.02-0.05)
[2018-05-08 02:29] LABS: Potassium 4.9 meq/L (3.5-5.1)
[2018-05-08 02:47] LABS: Baso # (Auto) 0.3 th/mm3 (0.0-0.2); Baso % (Auto) 3.9 % (0.0-2.0); Eos # (Auto) 0.1 th/mm3 (0.0-0.4); Eos % (Auto) 1.4 % (0.0-4.0); Hematocrit 40.5 % (35.0-46.0); Hemoglobin 13.3 gm/dL (11.6-15.3); Lymph # (Auto) 1.5 th/mm3 (1.0-4.8); Lymph % (Auto) 18.7 % (9.0-44.0); Mean Corpuscular HGB Conc 32.7 % (32.0-36.0); Mean Corpuscular Hemoglobin 29.8 pg (27.0-34.0); Mean Corpuscular Volume 91.1 fL (80.0-100.0); Mean Platelet Volume 8.9 fL (7.0-11.0); Mono # (Auto) 0.3 th/mm3 (0.0-0.9); Mono % (Auto) 3.4 % (0.0-8.0); Neut % (Auto) 72.6 % (16.0-70.0); Platelet Count 297 th/mm3 (150-450); Red Blood Count 4.45 mil/mm3 (4.00-5.30); Red Cell Distribution Width 13.7 % (11.6-17.2); White Blood Count 8.2 th/mm3 (4.0-11.0)
[2018-05-08] MEDS ORDERED: Docusate Sodium 100 MG Capsule PO PRN (03:00)
[2018-05-08] MEDS ORDERED: Nitroglycerin SL (Override) 0.4 MG Tab SL PRN (03:05)
[2018-05-08 04:56] LABS: Bilirubin,Urine Negative (Negative); Clarity,Urine Cloudy (Clear); Color,Urine Yellow (Yellw/Straw); Glucose,Urine (UA) 100 mg/dL (Negative); Leukocyte Esterase,Urine Small (Negative); Nitrite,Urine Negative (Negative); Specific Gravity,Urine 1.025 (1.002-1.035)
[2018-05-08 05:12] LABS: Chol/HDL Ratio 3.48 Ratio; HDL Cholesterol 59.6 mg/dL (40.0-60.0)
[2018-05-08 05:14] LABS: RBC,Urine 0-3 /hpf (0-3); WBC,Urine 51-189 /hpf (0-5)
[2018-05-08 05:15] LABS: Bacteria,Urine Few /hpf; Squamous Epithelial Cell,Urine 0-5 /hpf (0-5); Trichomonas,Urine Moderate /hpf
[2018-05-08] MEDS ORDERED: Morphine Inj 4 MG/ML Vial ONE (08:00)
[2018-05-08 08:12] LABS: Hematocrit 38.7 % (35.0-46.0); Hemoglobin 12.5 gm/dL (11.6-15.3); Mean Corpuscular HGB Conc 32.3 % (32.0-36.0); Mean Corpuscular Hemoglobin 29.3 pg (27.0-34.0); Mean Corpuscular Volume 90.8 fL (80.0-100.0); Mean Platelet Volume 8.6 fL (7.0-11.0); Platelet Count 251 th/mm3 (150-450); Red Blood Count 4.26 mil/mm3 (4.00-5.30); Red Cell Distribution Width 14.1 % (11.6-17.2); White Blood Count 7.1 th/mm3 (4.0-11.0)
[2018-05-08] MEDS ORDERED: Heparin 10,000 UNITS/10 ML Vial (for IV use) IV.PUSH STA ×2 (08:28→10:26)
[2018-05-08] MEDS ORDERED: Morphine Sulfate Inj 2 MG/ML Vial IV.PUSH ONE (08:30)
[2018-05-08 08:34] LABS: Creatine Kinase MB 27.9 ng/mL (0.5-3.6)
[2018-05-08 09:20] LABS: CKMB Percent 9.8 % (0.0-4.0)
[2018-05-08 09:21] LABS: Troponin I 4.08 ng/mL (0.02-0.05)
[2018-05-08] MEDS ORDERED: Heparin Drip 25,000 UNIT/250 ML BAG IV.CONT PRN (10:17)
[2018-05-08] MEDS: Pantoprazole Sodium 20 MG DR Tablet PO SCH (10:49)
[2018-05-08] MEDS: amLODIPine 5 MG Tablet PO SCH (10:49)
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
[2018-05-08] MEDS ORDERED: Metoprolol Inj 5 MG/5 ML Vial IV.PUSH PRN (10:56)
[2018-05-08 11:13] LABS: Activated Partial Thrombo Time 23.5 sec (24.3-30.1); INR 1.1 Ratio; Prothrombin Time 10.8 sec (9.8-11.6)
--- NOTE | 2018-05-08 13:30 | P.CONCA ---
History of Present Illness Consult date: 05/08/18 Primary Care Provider: Jodie Giraldo DO Family Provider: Jodie Giraldo DO Chief Complaint: Chest pain elevated blood pressure History of Present Illness: 68 year old history of CAD s/p CABG (DEVLIN-LAD, SVG-PDA, SVG-GIDEON, occluded SVG - OM), HTN who presented to the ER with complaints of chest pressure which began yesterday. She initially presented to the [place] ER. The patient ran out of her medications and when she presented to the ER she was hypertensive secondary to running out of her medications. Her troponin was found to be elevated and she was placed on a heparin gtt. Her last PCI to the SVG to GIDEON was done by Dr. Membreno. She continues to have chest pain despite NTG paste. No shortness of breath, PND, orthopnea, LE. Review of Systems All other systems reviewed negative except as stated in HPI [facility] - History History Provided By: Patient - Medical History Medical History: Medical History (Last Reviewed 05/08/18 @ 01:23 by Ammon Israel MD) CVA (cerebral vascular accident) Dyslipidemia Marijuana use CAD (coronary artery disease) HTN (hypertension) - Surgical History Surgical History: Surgical History (Last Updated 05/08/18 @ 10:39 by Alberto Garcia MD) S/P CABG (coronary artery bypass graft) - Family History Family History: Family History (Last Updated 05/08/18 @ 10:47 by Alberto Garcia MD) Other Family history of diabetes mellitus Family history of hypertension - Tobacco History Second Hand Smoke Exposure: Yes Tobacco Use In Past 30 Days: No Smoking Status: Former smoker Tobacco Type: Cigarettes - Alcohol History How Often Do You Have a Drink Containing Alcohol: Never - Substance Use History Substance History: Active Abuse - Substance Use Type Marijuana Status: Active Route Used: Inhalation Frequency: once weekly Reason for Use: Sleep Comment: for pain - Travel History Recent Travel in the [place] Within the Last 8 Weeks: No Recent Travel Out of the Country Within the Last 8 Weeks: No - Immunization History Tetanus Immunization: Unsure Hx Influenza Vaccine This Season: Yes Medications and Allergies Active Medications: Active Medications Alprazolam (Xanax) 1 mg PO BID [facility] Last Admin: 05/08/18 10:49 Dose: 1 mg Amlodipine Besylate (Norvasc) 5 mg PO DAILY [facility] Last Admin: 05/08/18 10:49 Dose: 5 mg Aspirin (Ecotrin) 325 mg PO DAILY [facility] Last Admin: 05/08/18 10:48 Dose: 325 mg Docusate Sodium (Colace) 100 mg PO BID PRN PRN Reason: CONSTIPATION Heparin Sodium/Dextrose (Heparin/D5w 25,000 U/250 Ml) 25,000 unit in 250 mls @ 9 mls/hr IV.CONT TITRATE PRN; Protocol PRN Reason: Per Protocol Last Admin: 05/08/18 11:21 Dose: 900 units/hr, 9 mls/hr Metoprolol Tartrate (Lopressor Inj) 5 mg IV.PUSH Q5M PRN PRN Reason: tachycardia Nitroglycerin (Nitro-Bid 2% Oint) 1 inch TOPICAL Q6HR [facility] Last Admin: 05/08/18 05:27 Dose: 1 inch Nitroglycerin (Nitrostat Sl (Override)) 0.4 mg SL Q5M PRN PRN Reason: Chest Pain Last Admin: 05/08/18 07:28 Dose: 0.4 mg Pantoprazole Sodium (Protonix) 20 mg PO DAILY [facility] Last Admin: 05/08/18 10:49 Dose: 20 mg Sodium Chloride (Ns Flush) 2 ml IV.FLUSH UNSCH PRN PRN Reason: FLUSH AFTER USING IV ACCESS Sodium Chloride (Ns Inj) 2 ml IV.FLUSH BID [facility] Last Admin: 05/08/18 10:49 Dose: 2 ml Sodium Chloride (Ns Inj) 2 ml IV.FLUSH UNSCH PRN PRN Reason: FLUSH AFTER USING IV ACCESS Allergies Allergy/AdvReac Type Severity Reaction Status Date / Time Fish Containing Products Allergy Intermediate Swelling Verified 05/08/18 00:51 penicillin G Allergy Intermediate swelling Verified 05/08/18 00:51 /hives all over Sulfa (Sulfonamide Allergy Mild swelling Verified 05/08/18 00:51 Antibiotics) ciprofloxacin Allergy Unknown swelling Verified 05/08/18 00:51 Home Medications Medication Instructions Recorded Confirmed Type alprazolam [Xanax] 1 mg PO BID 05/08/18 05/08/18 History atorvastatin 20 mg PO DAILY 05/08/18 05/08/18 History hydrocodone-acetaminophen PO PRN 05/08/18 History nitroglycerin 0.4 mg SUBLINGUAL Q5-15M PRN 05/08/18 05/08/18 History omeprazole 20 mg PO DAILY 05/08/18 05/08/18 History pravastatin 40 mg PO DAILY 05/08/18 05/08/18 History Exam Vital signs: Vital Signs 05/08/18 00:56 05/08/18 01:05 05/08/18 02:00 Temperature 98.6 F 98.3 F Pulse Rate 120 H 119 H 112 H Respiratory Rate 20 20 Blood Pressure 146/104 H 165/104 H Pulse Oximetry 97 98 97 05/08/18 02:20 05/08/18 03:49 05/08/18 05:30 Temperature Pulse Rate 105 H 102 H 95 H Respiratory Rate 18 16 Blood Pressure 164/70 H 149/72 H 134/92 H Pulse Oximetry 97 98 16 L 05/08/18 07:05 05/08/18 07:10 05/08/18 07:40 Temperature 98.2 F Pulse Rate 90 90 94 H Respiratory Rate 18 18 Blood Pressure 151/101 H 144/93 H Pulse Oximetry 95 94 L 05/08/18 07:45 05/08/18 08:05 05/08/18 08:56 Temperature 98.2 F 97.5 F L Pulse Rate 90 92 H 91 H Respiratory Rate 20 20 18 Blood Pressure 152/99 H 163/88 H 151/91 H Pulse Oximetry 96 95 97 05/08/18 11:28 Temperature 97.7 F Pulse Rate 93 H Respiratory Rate 16 Blood Pressure 143/89 H Pulse Oximetry 93 L Intake & Output 05/07/18 05/08/18 05/08/18 18:59 06:59 18:59 Weight 73.936 kg - Constitutional no acute distress - Routine HEENT Exam Head: Present: normocephalic Eye: Present: EOMI, PERRL ENT: Present: mucous membranes moist - Routine Neck Exam Absent: JVD - Routine Chest/Breast/Axilla Exam Chest wall: Absent: tenderness - Routine Respiratory Exam Present: CTA bilaterally - Routine Cardiovascular Exam Present: RRR, S1, S2, gallop - Routine Abdominal Exam Present: soft, normoactive bowel sounds, tenderness - Routine Extremities Exam Absent: edema - Routine Neurological Exam Present: alert, oriented X3 Results 05/08/18 07:50 05/08/18 02:00 Cardiac Enzymes 05/08/18 05/08/1818 Range/Units 02:00 02:00 02:00 AST 31 (15-37) U/L CK-MB (CK-2) (0.5-3.6) ng/mL Troponin I 0.22 H Cancelled (0.02-0.05) ng/mL B-Natriuretic Peptide 65 (0-100) pg/mL 05/08/18 Range/Units 07:50 AST (15-37) U/L CK-MB (CK-2) 27.9 H (0.5-3.6) ng/mL Troponin I 4.08 H* D (0.02-0.05) ng/mL B-Natriuretic Peptide (0-100) pg/mL Coagulation 05/08/18 05/08/18 05/08/18 Range/Units 02:00 02:00 10:45 PT 10.8 10.8 (9.8-11.6) sec APTT 26.6 23.5 L (24.3-30.1) sec B-Natriuretic Peptide 65 (0-100) pg/mL Lipids 05/08/18 Range/Units 02:00 Triglycerides 93 (42-150) mg/dL Cholesterol 208 H (120-200) mg/dL HDL Cholesterol 59.6 (40.0-60.0) mg/dL Cholesterol/HDL Ratio 3.48 Ratio CBC 05/08/18 05/08/18 Range/Units 02:00 07:50 WBC 8.2 7.1 (4.0-11.0) th/mm3 RBC 4.45 4.26 (4.00-5.30) mil/mm3 Hgb 13.3 12.5 (11.6-15.3) gm/dL Hct 40.5 38.7 (35.0-46.0) % Plt Count 297 251 (150-450) th/mm3 Neut # (Auto) 6.0 (1.8-7.7) th/mm3 Lymph # (Auto) 1.5 (1.0-4.8) th/mm3 [place] # (Auto) 0.3 (0.0-0.9) th/mm3 Eos # (Auto) 0.1 (0.0-0.4) th/mm3 Baso # (Auto) 0.3 H (0.0-0.2) th/mm3 Comprehensive Metabolic Panel 05/08/18 Range/Units 02:00 Sodium 139 (136-145) meq/L Potassium 4.9 (3.5-5.1) meq/L Chloride 106 (98-107) meq/L Carbon Dioxide 24.4 (21.0-32.0) meq/L BUN 21 H (7-18) mg/dL Creatinine 1.60 H (0.50-1.00) mg/dL Calcium 8.6 (8.5-10.1) mg/dL AST 31 (15-37) U/L ALT 18 (10-53) U/L Alkaline Phosphatase 88 (45-117) U/L Total Protein 8.4 H (6.4-8.2) g/dL Albumin 3.1 L (3.4-5.0) g/dL Intake and Output 05/07/18 05/08/18 05/08/18 22:59 06:59 14:59 Other: Weight 73.936 kg EKG interpretations - EKG EKG shows: sinus rhythm - Blocks, axis, hypertrophy, ST abn AV and intraventricular conduction: right bundle branch block (fixed/ intermittent, complete/incomplete) Repolarization changes or abnormalities: ST or T wave suggestive of ischemia Assessment and Plan - Plan NSTEMI- HTN Plan; Proceed with LHC via the Left Radial. Will continue ASA 81mg. She will need to be on a BB and statin as well. Continue NTG paste.
[2018-05-08] MEDS ORDERED: Iohexol 350 MG/ML 100 ML Vial (for Cath Lab) IVCONTRAST ONE (13:53)
[2018-05-08] MEDS ORDERED: Heparin/NS PF Inj 1,500 ML ONE (13:56)
[2018-05-08] MEDS ORDERED: fentaNYL Citrate Inj 100 MCG/2 ML Ampul ONE (14:04)
[2018-05-08] MEDS ORDERED: Heparin 10,000 UNITS/10 ML Vial (for IV use) ONE (14:05)
--- NOTE | 2018-05-08 14:13 | ECG ---
Date Performed: 05/08/2018 Time Performed: 00:59:33 PTAGE: 68 years EKG: SINUS TACHYCARDIA WITH FIRST DEGREE AV BLOCK WITH FREQUENT VENTRICULAR PREMATURE COMPLEXES RIGHT BUNDLE BRANCH BLOCK INFERIOR MYOCARDIAL INFARCTION ANTEROSEPTAL MYOCARDIAL INFARCTION MODERATE T-WAVE ABNORMALITY, CONSIDER LATERAL ISCHEMIA ABNORMAL ECG Compared to PREVIOUS TRACING , the sinus tachycardia and PVCs are new. The criteria for the anterosep luz infarct of undetermined age are also new. There has been a marked increase in the lateral ST segm ent depression. Clinical correlation is needed. PREVIOUS TRACIN04/26/2018 00.36 DOCTOR: Ivis Pitts Interpretating Date/Time 05/08/2018 14:12:45
--- NOTE | 2018-05-08 14:15 | ECG ---
Date Performed: 05/08/2018 Time Performed: 07:23:49 PTAGE: 68 years EKG: Sinus rhythm WITH OCCASIONAL ECTOPIC PREMATURE COMPLEXES RIGHT BUNDLE BRANCH BLOCK INFERIOR MYOCARDIAL INFARCTION ANTEROSEPTAL MYOCARDIAL INFARCTION ST DEVIATION AND MARKED T-WAVE ABNORMALITY, CONSIDER LATERAL ISCH EMIA ABNORMAL ECG Compared to PREVIOUS TRACING , there has been some increase in the ischemic appearing inferior latera l ST segment changes. The tracing remains highly suggestive of acute myocardial ischemia and/or injur y with an inferior wall infarction and anteroseptal infarction of undetermined age. There is less inf erior ST elevation on this tracing but the change is nonspecific and clincal correlation will be impo rtant. PREVIOUS TRACIN05/08/2018 00.59 DOCTOR: Ivis Pitts Interpretating Date/Time 05/08/2018 14:14:47
--- NOTE | 2018-05-08 15:34 | CATHPROC ---
[facility] HIS Report Study Information Study Number Admission Scheduled Start Study Start [id number] May 08 2018 3:03AM 05/08/2018 May 08 2018 1:44PM [place] [facility] Cardiac Catheterization Admit Source Facility Department Emergency department [facility] - Structures Mechanic Physician and Clinical Staff Initial Bobo Mejia Carrier Washer Bony Arambula RN Carrier Washer To [place], Jimenez RecordJose Bello,RT(R) Scrub Leeanna Dick ,RT(R) Procedures Performed Procedure Location (Site) Vessel Name Coronary Angiograms RCA Right Coronary Coronary Angiograms Gft. Stump 1 SVG Graft Coronary Angiograms DEVLIN DEVLIN L Heart Cath Equipment Time Building Custodian Description Size Mfg Part Number Used/Scraped TRANSDUCER, TRUWAVE [id number] 13:46 RAINES DIXON * Used W/Docitt *[id number] 13:46 [facility] SUPPORT, ARTERIAL ADULT [id number] Used SDN-21-2.5 13:46 [employer] NEEDLE, PERCUTANEOUS ENTRY 21G X 2.5CM Used *[id number] *[id number] 13:46 Alo[employer] BLANKET,WARM AIR CCL * Used *[id number] 13:46 [employer] PACK, CCL CUSTOM * Used *[id number] 15:07 [employer] AL 1 DXTERITY CATHETER FR 6 [id number] Used 14:42 [employer] IM DXTERITY CATHETER FR 6 [id number] Used 14:47 [employer] JL 3.5 DXTERITY CATHETER FR 6 [id number] Used 14:58 [employer] JR 4.0 DXTERITY CATHETER FR 6 [id number] Used 15:03 [employer] MPA 1 DXTERITY CATHETER FR 6 [id number] Used BAND, RADIAL COMPRESSION TR [id number] 15:23 [employer] MEDICAL 24CM Used SHORT 24 *[id number] 13:46 [employer] MEDICAL WIRE, EXCHANGE 260CM 3MMJ 260CM Used *[id number] 13:46 NAMIC MANIFOLD, 4 PORT * Used *[id number] 13:46 NYCOMED OMNIPAQUE, 350 MG, 150ML 150ML [id number] Used SHEATH, FR6 TRANSRADIAL [id number] 13:46 [employer] FR 6 Used SLENDER 10CM *[id number] Equipment Model, Serial, Lot Number and Expiration Data Description Model Number Serial Number Lot Number Expiration Date AL 1 DXTERITY CATHETER [id number] 03-04-2020 IM DXTERITY CATHETER [id number] 02-20-2020 JL 3.5 DXTERITY CATHETER [id number] 01-13-2021 JR 4.0 DXTERITY CATHETER [id number] 03-20-2021 MPA 1 DXTERITY CATHETER [id number] 03-11-2020 History: Current Medications Medication Dosage/Unit Route Frequency Last Date/Time Taken ASA NORVASC History: Allergies Allergy Reaction Sulfa (Sulfonamide Antibiotics) swelling Fish Containing Products Swelling ciprofloxacin swelling penicillin G swelling /hives all over History: Risk Factors Family History of Hypertension Dyslipidemia Previous MA Previous Heart Failure Premature CAD Yes Yes No No No Prior Valve Prior PCI Prior CABG Prior CABGDate Surgery No No Yes 12/31/2007 Cerebrovascular Peripheral Artery Chronic Lung On Dialysis Diabetes Disease Disease Disease No Yes No Yes No History: Symptoms/Diagnosis Selection Items Chest pain History: Stress Tests Stress or Imaging Studies Performed No History: Other Disease Selection Items CAD HTN History: Other Current Smoker Method Quit Packs a Day Years Used Pack Years No Cigarettes 21 Years Ago 1 35 35 Labs Hgb (g/dl) Hct (%) RBC (MIL/MM3) WBC (l/cumm) Platelets (thousands) 11.60-17.00 35.00-51.00 4.00-5.90 4.00-11.00 150.00-450.00 12.5 38.7 4.2 7.1 251 Glucose (mg/dl) BUN (mg/dl) Creatinine (mg/dl) BUN:Creatinine (1:x) 74.00-106.00 7.00-18.00 0.50-1.30 10.00-20.00 157 21 1.6 13.1 Na (meq/l) K (meq/l) Cl (meq/l) CO2 (mmol/L) Ca (mg/dl) 136.00-145.00 3.50-5.10 98.00-107.00 21.00-32.00 8.50-10.10 139 4.9 106 24.4 8.6 PT (sec) PTT (sec) INR (PTT:PT) 9.80-11.60 24.30-30.10 0.90-1.10 10.8 23.5 1.1 Troponin I (ng/ml) Troponin T (ng/ml) CPK (u/l) CPK-MB (ng/ML) 0.02-0.05 0.40-2.10 26.00-308.00 0.50-3.60 0.22 4.08 284 27.9 Medication Medication Total Dose (Bolus/Oral) Medication Total Dosage/Unit 1% XYLOCAINE 5 mL FENTANYL 50 mcg HEPARIN 5000 units RADIAL COCKTAIL 5 mL (Bolus) VERSED 2 mg Medications (Bolus/Oral) Medication Time Given Dosage/Unit Administered By Reason VERSED 05/08/2018 2:35:32 PM 2 mg Ralf, Bony 2 mg VERSED given in lab by Bony Arambula RN in Left Wrist via Peripheral IV. FENTANYL 05/08/2018 2:36:04 PM 50 mcg Ralf, Bony 50 mcg FENTANYL given in lab by Bony Arambula RN in Left Wrist via Peripheral IV. 1% XYLOCAINE 05/08/2018 2:38:50 PM 5 mL Bobo Valiente 5 mL 1% XYLOCAINE given in lab by Bobo Valiente in Left Radial via Subcutaneous. Ntg 200mcg Verapamil 2.5mg Heparin RADIAL COCKTAIL 05/08/2018 2:42:13 PM 5 mL (Bolus) Bobo Valiente 2500U 5 mL (Bolus) RADIAL COCKTAIL given in lab by Bobo Valiente via Radial. Using [Solution Name]. Reason: Ntg 200mcg Verapamil 4mg HEPARIN 05/08/2018 2:44:44 PM 5000 units Bobo Valiente 5000 units HEPARIN given in lab by Bobo Valiente in Left Wrist via Peripheral IV. Medication (Drip) Medication Time Given Dosage/Unit Concentration/Unit Diluent (ml) Solution IV Solutions 05/08/2018 1:59:28 PM 0 mL (IV) 500 NaCl .9 IV Solutions given in lab by Jimenez Ariza RN via Peripheral IV. Pump/Drip Flow = 20 ml/hr using NaCl .9. Initial Case Assessment Cardiovascular HR Rhythm NIBP Chest Pain 84 Irregular 134/92 0 Edema Present Skin color Skin None Normal Warm Dry Circulatory - Right Pulses Dorsalis Pedis Femoral Radial 2 2 2 Scale (0,1,2,3,4,d) Circulatory - Left Pulses Dorsalis Pedis Femoral Radial 2 2 2 Scale (0,1,2,3,4,d) Neurological State Oriented to time-place- Alert Moves all extremities person Respiration - General Respiration Rate SpO2 (%) O2 (lpm) (B/min) 10 100 2 Final Case Assessment Circulatory - Right Pulses Dorsalis Pedis Femoral Radial 2 2 2 Scale (0,1,2,3,4,d) Circulatory - Left Pulses Dorsalis Pedis Femoral Radial 2 2 Scale (0,1,2,3,4,d) Neurological State Oriented to time-place- Alert Moves all extremities person Respiration - General Respiration Rate O2 (lpm) (B/min) 18 2 Chronological Log Time Study Chronological Log 13:53:41 Patient arrived via Bed. 13:53:42 Patient Name, D.O.B, / Armband Verified By R.N. 13:53:43 Consent signed by the physician and the patient and verified by the Structures Mechanic staff. 13:53:43 Pre-op and post- op instructions given; patient acknowledges understanding of instructions. 13:53:44 Verbal Stimulation=2 Physical Stimulation=2 Airway=2 Respiration=2 TOTAL=8. (0=absent, 1=li mited, 2=present) 13:53:45 Presedation assessment performed by Structures Mechanic RN. 13:54:32 Patient has been NPO for Less than 6Hrs. 13:59:12 Patient has been NPO for More than 6Hrs. 13:59:22 Skin Breakdown- none per patient. 13:59:23 Patient Warmer Placed on the Table. 13:59:25 Beth Prominences Protected 13:59:27 A # 20 IV was noted in the Wrist (left). Grade = 0 13:59:28 IV Solutions given in lab by Jimenez Ariza RN via Peripheral IV. Pump/Drip Flow = 20 ml/hr u sing NaCl .9. 13:59:29 History and physical on the chart or being dictated. Assessment: Initial Case, HR=84 BPM, Rhythm=Irregular, LKRG=480/92 mmhg, Chest Pain=0, Edema=No ne, Color=Normal, Skin = Warm, Dry Right Pulses: Alber Ped=2, Femoral=2, Radial=2 13:59:30 Left Pulses: Alber Ped=2, Femoral=2, Radial=2 Neurological: State=Alert, Ox3, MARQUEZ Respiration: Resp=10 B/min, GeU5=127 %, O2=2 lpm Vitals capture started with the following parameters, Patient=Adult, Interval=3 min, Initial Pr noqgda=677 mmHg, 14:15:51 Deflation Rate=5 mmHg, Cuff placed on Left Arm 14:16:29 HR=86 bpm, YNCM=887/92 mmhg, Resp=19 B/min, Pain=0, Tamica=10, Arreola=2 14:17:41 Reference ECG taken 14:19:25 HR=85 bpm, YGGS=151/88 mmhg, Resp=23 B/min, Pain=0, Tamica=10, Arreola=2 14:22:28 HR=81 bpm, XHOO=196/85 mmhg, SpO2=69.0 %, Resp=28 B/min, Pain=0, Tamica=10, Arreola=2 14:24:07 Left radial and groin(s) prepped with 2% chlorhexidine, and draped after a 3 min. waiting t janeen. 14:25:26 HR=84 bpm, KSYT=612/83 mmhg, SpO2=98.0 %, Resp=8 B/min, Pain=0, Tamica=10, Arreola=2 14:28:28 HR=84 bpm, GSXC=772/92 mmhg, SpO2=93.0 %, Resp=18 B/min, Pain=0, Tamica=10, Arreola=2 14:30:54 Pressure channel 1 zeroed. 14:31:28 HR=85 bpm, BDJT=156/95 mmhg, SpO2=97.0 %, Resp=20 B/min, Pain=0, Tamica=10, Arreola=2 14:31:58 MD paged 14:32:10 MD arrived. 14:34:30 HR=84 bpm, ZJHY=652/91 mmhg, GwQ2=164.0 %, Resp=17 B/min, Pain=0, Tamica=10, Arreola=2 14:35:32 2 mg VERSED given in lab by Bony Arambula RN in Left Wrist via Peripheral IV. 14:36:04 50 mcg FENTANYL given in lab by Bony Arambula RN in Left Wrist via Peripheral IV. Time Out. Correct patient, correct procedure, correct physician, labs, allergies, and equipment verified with labor/excavator 14:37:15 team present. Fire risk assesment completed (see hard stop sheet for coding). Time Out Conc urred by MD and individual staff in procedure. 14:37:29 HR=88 bpm, MGWE=107/88 mmhg, Resp=20 B/min, Pain=0, Tamica=10, Arreola=2 14:38:50 5 mL 1% XYLOCAINE given in lab by Bobo Valiente in Left Radial via Subcutaneous. 14:38:52 Case Start 14:39:50 Access site was Left Radial Artery. A SHEATH, FR6 TRANSRADIAL SLENDER 10CM FR 6 was advanced into the Radial (left) using the Piyushu faiza 14:39:58 technique. 14:40:29 HR=84 bpm, STTL=454/93 mmhg, DwR0=410.0 %, Resp=16 B/min, Pain=0, Tamica=10, Arreola=2 5 mL (Bolus) RADIAL COCKTAIL given in lab by Bobo Valiente via Radial. Using [Solution Name]. Re ason: Ntg 200mcg 14:42:13 Verapamil 4mg A IM DXTERITY CATHETER FR 6 was advanced over a wire. OMNIPAQUE, 350 MG, 150ML 150ML was used f or 14:43:03 injections. 14:43:31 HR=86 bpm, IQUQ=206/81 mmhg, IbH6=265.0 %, Resp=15 B/min, Pain=0, Tamica=10, Arreola=2 14:44:44 5000 units HEPARIN given in lab by Bobo Valiente in Left Wrist via Peripheral IV. 14:45:43 The DEVLIN was injected and visualized at various angles. OMNIPAQUE, 350 MG, 150ML 150ML used . 14:46:31 HR=84 bpm, XMGK=013/74 mmhg, WzH3=634.0 %, Resp=19 B/min, Pain=0, Tamica=10, Arreola=2 After removing the current catheter a JL 3.5 DXTERITY CATHETER FR 6 was advanced over a WIRE, E XCHANGE 260CM 14:47:24 3MMJ 260CM. 14:49:30 HR=78 bpm, NIBP=99/62 mmhg, SpO2=99.0 %, Resp=15 B/min, Pain=0, Tamica=10, Arreola=2 Recorded Pressure: Ao, HR=74, Condition=Condition 1 14:49:38 (Aorta) Ao 90/58/70 14:52:24 HR=81 bpm, IQAW=198/81 mmhg, SpO2=99.0 %, Resp=15 B/min, Pain=0, Tamica=10, Arreola=2 14:55:30 HR=79 bpm, NWZK=268/75 mmhg, Resp=13 B/min, Pain=0, Tamica=10, Arreola=2 After removing the current catheter a JR 4.0 DXTERITY CATHETER FR 6 was advanced over a WIRE, E XCHANGE 260CM 14:58:19 3MMJ 260CM. 14:58:28 HR=81 bpm, ZATZ=543/73 mmhg, Resp=14 B/min, Pain=0, Tamica=10, Arreola=2 Recorded Pressure: LV, HR=82, Condition=Condition 1 15:00:12 (Left Ventricle) LV 113/7/14 Recorded Pressure: LV, Ao, HR=81, Condition=Condition 1 15:00:43 (Left Ventricle) LV 115/6/14, (Aorta) Ao 117/77/93 15:01:12 The RCA was injected and visualized at various angles. OMNIPAQUE, 350 MG, 150ML 150ML used . 15:01:28 HR=80 bpm, MBVZ=074/84 mmhg, Resp=15 B/min, Pain=0, Tamica=10, Arreola=2 After removing the current catheter a MPA 1 DXTERITY CATHETER FR 6 was advanced over a WIRE, EX CHANGE 260CM 15:01:57 3MMJ 260CM. 15:04:31 HR=80 bpm, VDMY=672/82 mmhg, Resp=15 B/min, Pain=0, Tamica=10, Arreola=2 After removing the current catheter a AL 1 DXTERITY CATHETER FR 6 was advanced over a WIRE, EXC HANGE 260CM 15:07:24 3MMJ 260CM. 15:07:31 HR=78 bpm, PTAB=994/76 mmhg, SpO2=99.0 %, Resp=16 B/min, Pain=0, Tamica=10, Arreola=2 15:10:29 HR=79 bpm, WIDF=493/90 mmhg, Resp=15 B/min, Pain=0, Tamica=10, Arreola=2 After removing the current catheter a RCB INFINITI CATHETER FR 6 was advanced over a WIRE, EXCH DNOTE 260CM 15:13:01 3MMJ 260CM. 15:13:31 HR=76 bpm, LXUO=658/76 mmhg, SpO2=0.0 %, Resp=18 B/min, Pain=0, Tamica=10, Arreola=2 15:16:32 HR=80 bpm, EMFP=980/86 mmhg, SpO2=0.0 %, Resp=16 B/min, Pain=0, Tamica=10, Arreola=2 15:19:34 HR=81 bpm, ESWL=995/85 mmhg, LzD1=580.0 %, Resp=24 B/min, Pain=0, Tamica=10, Arreola=2 15:21:30 The Gft. Stump 1 was injected and visualized at various angles. OMNIPAQUE, 350 MG, 150ML 15 0ML used. 15:22:21 Catheter was removed 15:22:23 Case End (Physician broke scrub) 15:22:34 HR=83 bpm, NIUO=026/91 mmhg, SpO2=88.0 %, Resp=7 B/min, Pain=0, Tamica=10, Arreola=2 15:25:32 HR=83 bpm, AGCU=002/96 mmhg, Resp=18 B/min, Pain=0, Tamica=10, Arreola=2 Assessment: Final Case Right Pulses: Alber Ped=2, Femoral=2, Radial=2 15:26:52 Left Pulses: Alber Ped=2, Femoral=2 Neurological: State=Alert, Ox3, MARQUEZ Respiration: Resp=18 B/min, O2=2 lpm Radial Compression Device Used. 13 mLs of air placed in BAND, RADIAL COMPRESSION TR SHORT 24 24 CM. Affected 15:27:14 hand 99 % O2 saturation. 15:27:25 No case complications noted. 15::29 Cine recording checked. 15:28:20 Bedside Report will be given. 15::27 A Left Heart Cath was performed. 15:28:35 HR=83 bpm, BBKO=454/98 mmhg, SpO2=99.0 %, Resp=17 B/min, Pain=0, Tamica=10, Arreola=2 15:31:37 HR=83 bpm, MHAI=574/96 mmhg, SpO2=99.0 %, Resp=16 B/min, Pain=0, Tamica=10, Arreola=2 15:34:23 Vitals capture stopped. 15:35:27 Patient moved to stretcher End Study - Contrast Media Used In Study Contrast Total Opened (mL) Total Used (mL) Total Wasted (mL) Omnipaque 150 55 95 End Study - Maximum Contrast Load Max Contrast Load (mL) 231.0 End Study - Radiation Exposure Fluoro Time (minutes) 13.3 End Study - Patient Disposition Complications Transferred To Interventional Outcome No Telemetry Bed No attempt made
[2018-05-08] MEDS: SOD CHLORIDE 0.9% IV.CONT SCH ×2 (16:43→22:58)
[2018-05-09] MEDS: SOD CHLORIDE 0.9% IV.CONT SCH ×5 (05:50→23:53)
[2018-05-09 09:35] LABS: Hematocrit 40.6 % (35.0-46.0); Hemoglobin 13.3 gm/dL (11.6-15.3); Mean Corpuscular HGB Conc 32.9 % (32.0-36.0); Mean Corpuscular Hemoglobin 29.6 pg (27.0-34.0); Mean Corpuscular Volume 90.1 fL (80.0-100.0); Platelet Count 241 th/mm3 (150-450); Red Cell Distribution Width 14.5 % (11.6-17.2); White Blood Count 6.6 th/mm3 (4.0-11.0)
[2018-05-09] MEDS: amLODIPine 5 MG Tablet PO SCH (09:38)
[2018-05-09] MEDS: Pantoprazole Sodium 20 MG DR Tablet PO SCH (09:38)
--- NOTE | 2018-05-09 09:55 | P.PNCA ---
Subjective Interval history: No acute events. Physical Exam Vital signs: Vital Signs 05/08/18 11:28 05/08/18 20:00 05/08/18 20:27 Temperature 97.7 F 97.3 F L Pulse Rate 93 H 87 86 Respiratory Rate 16 18 Blood Pressure 143/89 H 141/86 H Pulse Oximetry 93 L 100 05/09/18 00:00 05/09/18 00:10 05/09/18 04:00 Temperature 97.3 F L 97.4 F L Pulse Rate 75 78 80 Respiratory Rate 18 18 Blood Pressure 129/69 132/72 Pulse Oximetry 99 99 05/09/18 08:00 Temperature 97.6 F Pulse Rate 81 Respiratory Rate 18 Blood Pressure 135/72 Pulse Oximetry 99 Intake & Output 05/08/18 05/09/18 05/09/18 18:59 06:59 18:59 Intake Total 110 / 110 Balance 110 / 110 Weight 76.8 kg Intake: IV Heparin/NS PF Inj 1,500 ML @ 0 10 / 10 mls/hr .ROUTE .Enpocket ONE Rx#: [id number] Oral 110 / 110 Other: # Voids 2 Date of Last Bowel Movement 05/09/18 # Bowel Movements 1 Assessment and Plan - Plan NSTEMI- HTN HLD Plan: Cath yesterday showed MV disease however no clear targets for revascularization. Plan will be to continue medical therapy and good control of her BP. Ok to d/c home. Start BB, Lipitor, change ASA to 81 mg Cath: Patent DEVLIN-LAD Occluded SVG to OM, GIDEON (previously stented), and PDA. There are now Left to right collaterals to the GIDEON and PDA territory
--- NOTE | 2018-05-09 15:05 | P.PN ---
Subjective Interval history: Follow-up non-ST elevation MS May 09, 2018-patient seen and examined, denies any chest pain or shortness of breath. Seen by cardiology and clear for discharge pending 2D echo. Patient had a clean LHC May 08, 2018. Currently afebrile. Physical Exam Vital signs: Vital Signs 05/08/18 20:00 05/08/18 20:27 05/09/18 00:00 Temperature 97.3 F L 97.3 F L Pulse Rate 87 86 75 Respiratory Rate 18 18 Blood Pressure 141/86 H 129/69 Pulse Oximetry 100 99 05/09/18 00:10 05/09/18 04:00 05/09/18 08:00 Temperature 97.4 F L 97.6 F Pulse Rate 78 80 81 Respiratory Rate 18 18 Blood Pressure 132/72 135/72 Pulse Oximetry 99 99 05/09/18 10:33 05/09/18 12:00 Temperature 97.2 F L Pulse Rate 71 Respiratory Rate 18 Blood Pressure 135/77 Pulse Oximetry 94 L 97 Intake & Output 05/08/18 05/09/18 05/09/18 18:59 06:59 18:59 Intake Total 110 / 110 Balance 110 / 110 Weight 76.8 kg Intake: IV Heparin/NS PF Inj 1,500 ML @ 0 10 / 10 mls/hr .ROUTE .Cognection ONE Rx#: [id number] Oral 110 / 110 Other: # Voids 2 Date of Last Bowel Movement 05/09/18 # Bowel Movements 1 Narrative: GENERAL: NAD SKIN: Warm and dry. HEAD: Normocephalic. EYES: No scleral icterus. No injection or drainage. NECK: Supple, trachea midline. No JVD or lymphadenopathy. CARDIOVASCULAR: Regular rate and rhythm without murmurs, gallops, or rubs. RESPIRATORY: Breath sounds equal bilaterally. No accessory muscle use. GASTROINTESTINAL: Abdomen soft, non-tender, nondistended. MUSCULOSKELETAL: No cyanosis, or edema. BACK: Nontender without obvious deformity. No CVA tenderness. Results - Labs CBC & Chem 7: 05/09/18 08:33 05/08/18 02:00 Laboratory Results - last 24 hr 05/09/18 08:33 WBC 6.6 RBC 4.50 Hgb 13.3 Hct 40.6 MCV 90.1 MCH 29.6 MCHC 32.9 RDW 14.5 Plt Count 241 MPV 9.0 Microbiology 05/08/18 04:30 Clean Catch Urine Urine Culture - Final 50-100,000 cfu/mL mixed gram positive tea (probable contaminants) - Procedures Left heart catheterization May 08, 2018 Assessment and Plan - Assessment (1) Non-ST elevation MS (NSTEMI) Code(s): I21.4 - Non-ST elevation (NSTEMI) myocardial infarction Status: Acute - Plan 68-year-old female with Non-ST elevation MS s/p C with finding of Patent DEVLIN-LAD; Occluded SVG to OM, GIDEON (previously stented), and PDA. There are now Left to right collaterals to the GIDEON and PDA territory Management per cardiology Currently on beta-karly, Lipitor 20 mg at bedtime, aspirin 81 mg daily, Morphine/Nitro. Off Heparin 2D echo report pending Hypertension Continue with Toprol-XL 25 mg daily, Norvasc 5 mg daily Hyperlipidemia On statin History of CAD, status post CABG Continue with aspirin Consult PT Discharge patient to home Condition on discharge: Improved Regular Diet as tolerated Ad Sanam activity Rx written: see EMR Follow-up with primary care physician in 1 week cardiology in 1-2 weeks
--- NOTE | 2018-05-09 15:22 | P.DCO ---
- Home Health Nursing Order: Signs/symptoms of disease process - Certification I have seen patient Jody Culp on 05/09/18. My clinical findings support the need for the requested home health care services because: Limited mobility due to disease progression I certify that my clinical findings support that this patient is homebound because: Poor cardiac reserve
--- NOTE | 2018-05-09 16:03 | ECHRPT ---
Indication: chest pain CONCLUSIONS The left ventricular systolic function is normal with an estimated ejection fraction in the range of 60-65%. Normal left ventricular size with Mild Concentric Hypertrophy. Grade 1 Diastolic Dysfunction. No regional wall motion abnormalities are present. . The estimated pulmonary arterial pressure is 24 mmHg. IVC is normal sizeand collapses with inspiration. BP: / HR: Rhythm: Sinus Technical Quality:Fair FINDINGS LEFT VENTRICLE The left ventricular systolic function is normal with an estimated ejection fraction in the range of 60-65%. Normal left ventricular size. Mild Concentric Hypertrophy No regional wall motion abnormalities are present. RIGHT VENTRICLE Normal right ventricular size and systolic function. LEFT ATRIUM The left atrial size is normal. RIGHT ATRIUM The right atrial size is normal. ATRIAL SEPTUM Normal atrial septal thickness without atrial level shunting by limited color doppler interrogation. AORTA The aortic root and proximal ascending aorta are normal in size on limited imaging. MITRAL VALVE Structurally normal mitral valve. Trace mitral valve regurgitation. AORTIC VALVE Trileaflet aortic valve. Diffuse calcification of the aortic valve. Trace aortic valve regurgitation. TRICUSPID VALVE Structurally normal tricuspid valve. There is trace tricuspid valve regurgitation. The estimated pulmonary arterial pressure is 24 mmHg. PULMONARY VALVE The pulmonary valve is not well visualized. VESSELS The inferior vena cava is normal in size. PERICARDIUM No pericardial effusion. OTHER FINDINGS Grade 1 Diastolic Dysfunction. Bobo Valiente MD (Electronically Signed) Final Date:09 May 2018 16:02
[2018-05-10] MEDS: SOD CHLORIDE 0.9% IV.CONT SCH ×4 (04:19→18:38)
[2018-05-10 06:45] LABS: Hemoglobin 12.3 gm/dL (11.6-15.3); Mean Corpuscular HGB Conc 33.4 % (32.0-36.0); Mean Corpuscular Hemoglobin 30.1 pg (27.0-34.0); Mean Corpuscular Volume 90.2 fL (80.0-100.0); Mean Platelet Volume 8.7 fL (7.0-11.0); Platelet Count 231 th/mm3 (150-450); Red Cell Distribution Width 14.5 % (11.6-17.2); White Blood Count 6.2 th/mm3 (4.0-11.0)
[2018-05-10] MEDS: Pantoprazole Sodium 20 MG DR Tablet PO SCH (10:03)
--- NOTE | 2018-05-10 12:31 | P.PN ---
Subjective Interval history: Follow-up non-ST elevation [place] May 09, 2018-patient seen and examined, denies any chest pain or shortness of breath. Seen by cardiology and clear for discharge pending 2D echo. Patient had a clean LHC May 08, 2018. Currently afebrile. May 10, 2018-patient seen and examined, alert and oriented 2, denies any chest pain or shortness of breath. Still with some lower extremity weakness. Afebrile. Physical Exam Vital signs: Vital Signs 05/09/18 16:00 05/09/18 20:00 05/10/18 00:00 Temperature 97.8 F 97.7 F 97.2 F L Pulse Rate 74 60 62 Respiratory Rate 18 20 16 Blood Pressure 127/69 145/80 H 130/69 Pulse Oximetry 100 100 98 05/10/18 04:00 05/10/18 08:00 05/10/18 12:00 Temperature 98.2 F 97.7 F Pulse Rate 64 78 73 Respiratory Rate 18 18 18 Blood Pressure 122/65 115/55 L 131/61 Pulse Oximetry 99 99 100 Intake & Output 05/09/18 05/10/18 05/10/18 18:59 06:59 18:59 Intake Total 500 / 500 476 / 476 Balance 500 / 500 476 / 476 Weight 76.5 kg Intake: Oral 500 / 500 476 / 476 Other: # Voids 2 1 Date of Last Bowel Movement 05/08/18 05/08/18 Narrative: GENERAL: NAD SKIN: Warm and dry. HEAD: Normocephalic. EYES: No scleral icterus. No injection or drainage. NECK: Supple, trachea midline. No JVD or lymphadenopathy. CARDIOVASCULAR: Regular rate and rhythm without murmurs, gallops, or rubs. RESPIRATORY: Breath sounds equal bilaterally. No accessory muscle use. GASTROINTESTINAL: Abdomen soft, non-tender, nondistended. MUSCULOSKELETAL: No cyanosis, or edema. BACK: Nontender without obvious deformity. No CVA tenderness. Results - Labs CBC & Chem 7: 05/10/18 06:10 05/08/18 02:00 Laboratory Results - last 24 hr 05/10/18 06:10 WBC 6.2 RBC 4.10 Hgb 12.3 Hct 37.0 MCV 90.2 MCH 30.1 MCHC 33.4 RDW 14.5 Plt Count 231 MPV 8.7 Microbiology 05/08/18 04:30 Clean Catch Urine Urine Culture - Final 50-100,000 cfu/mL mixed gram positive tea (probable contaminants) - Procedures Left heart catheterization May 08, 2018 Assessment and Plan - Assessment (1) Non-ST elevation NE (NSTEMI) Code(s): I21.4 - Non-ST elevation (NSTEMI) myocardial infarction Status: Acute - Plan 68-year-old female with Non-ST elevation NE s/p LHC with finding of Patent DEVLIN-LAD; Occluded SVG to OM, GIDEON (previously stented), and PDA. There are now Left to right collaterals to the GIDEON and PDA territory Management per cardiology Currently on beta-karly, Lipitor 20 mg at bedtime, aspirin 81 mg daily, Morphine/Nitro. Off Heparin 2D echo with EF 60-65% Hypertension Continue with Toprol-XL 25 mg daily, Norvasc 5 mg daily Hyperlipidemia On statin History of CAD, status post CABG Continue with aspirin Global weakness PT consulted May 09, 2018, recommended discharge to SNF
--- NOTE | 2018-05-10 12:35 | P.DS ---
Date of admission: 05/08/18 03:03 Primary care physician: Jodie Giraldo DO Anticipated date of discharge: 05/10/18 Brief History from admission: This is a 68-year-old black female with significant past medical history for coronary disease status post CABG hypertension medical noncompliance who presented to her primary care physician complaint of chest pain.Initially presented to [place] [facility] in where she was found to have some ekg changes. Cardiology was consulted and she was referred to this hospital for further evaluation. On admission here she was found to have elevated trop. Heparin gtt was started and Call was giving to the office of cardiology glue maker bone (Dr. Valiente) . On intereview, she continue to have some chest discomfort relieved it by nitro and morphine. Otherwise denied any sob,palpitations or lightheadness. Unfortunally she stopped taking her BP medications from home reason her BP went to > 200 at ER as per her description. DS: Diagnosis - Discharge Diagnosis (1) Non-ST elevation SD (NSTEMI) Status: Acute DS: Summary Hospital Course: Patient admitted secondary to non-ST elevation SD for which cardiology was consulted. She initially was started on heparin drip with ACS ruled out per protocol. She underwent a clean left heart catheterization. She was initiated on beta-karly and continue on starting as well as aspirin. 2D echo was obtained. Patient was continued on her treatment for other chronic medical conditions. Prior to discharge, physical therapy was consulted however patient was found to have global weakness for which a discharge to SNF was recommended. While in hospital, DVT and GI prophylaxis were provided. Prior to discharge, patient's vitals remained stable. - Time Spent with Patient Total time spent providing and/or coordinating discharge services: Greater than 30 minutes - Quality: VTE Deep Vein Thrombosis/Pulmonary Embolism Present on Admission: No Exam Vital signs: Vital Signs 05/09/18 16:00 05/09/18 20:00 05/10/18 00:00 Temperature 97.8 F 97.7 F 97.2 F L Pulse Rate 74 60 62 Respiratory Rate 18 20 16 Blood Pressure 127/69 145/80 H 130/69 Pulse Oximetry 100 100 98 05/10/18 04:00 05/10/18 08:00 05/10/18 12:00 Temperature 98.2 F 97.7 F Pulse Rate 64 78 73 Respiratory Rate 18 18 18 Blood Pressure 122/65 115/55 L 131/61 Pulse Oximetry 99 99 100 Intake & Output 05/09/18 05/10/18 05/10/18 18:59 06:59 18:59 Intake Total 500 / 500 476 / 476 Balance 500 / 500 476 / 476 Weight 76.5 kg Intake: Oral 500 / 500 476 / 476 Other: # Voids 2 1 Date of Last Bowel Movement 05/08/18 05/08/18 Narrative: GENERAL: NAD SKIN: Warm and dry. HEAD: Normocephalic. EYES: No scleral icterus. No injection or drainage. NECK: Supple, trachea midline. No JVD or lymphadenopathy. CARDIOVASCULAR: Regular rate and rhythm without murmurs, gallops, or rubs. RESPIRATORY: Breath sounds equal bilaterally. No accessory muscle use. GASTROINTESTINAL: Abdomen soft, non-tender, nondistended. MUSCULOSKELETAL: No cyanosis, or edema. BACK: Nontender without obvious deformity. No CVA tenderness. Results Procedures completed during hospitalization: Left heart catheterization May 08, 2018 Labs on day of discharge: Labs from last 24 hours 05/10/18 06:10 WBC 6.2 RBC 4.10 Hgb 12.3 Hct 37.0 MCV 90.2 MCH 30.1 MCHC 33.4 RDW 14.5 Plt Count 231 MPV 8.7 - Impressions ITS Impressions Chest X-Ray 05/08/18 01:18 CONCLUSION: No acute findings in the chest. Discharge Plan - Discharge Disposition Patient Disposition: 03 Discharge to SNF - Discharge Condition Condition: Good - Discharge Order Discharge Orders: Discharge Order (Routine); Ordered 05/10/18 Ordered By: Rajiv Walker - Physicians Team Primary Care Provider: Jodie Giraldo Attending Provider: Rajiv Walker Other Providers: Bobo Valiente MD ; Praful Basilio
[2018-05-10] MEDS: amLODIPine 5 MG Tablet PO SCH (12:36)
[2018-05-10] MEDS ORDERED: Acetaminophen 325 MG Tablet PO PRN (21:22)
[2018-05-10] MEDS: Divalproex 250 MG ER Tablet PO SCH (22:20)
[2018-05-11] MEDS: SOD CHLORIDE 0.9% IV.CONT SCH ×5 (00:12→23:03)
[2018-05-11] MEDS: Divalproex 250 MG ER Tablet PO SCH ×2 (08:50→22:59)
[2018-05-11] MEDS: Pantoprazole Sodium 20 MG DR Tablet PO SCH (08:50)
[2018-05-11] MEDS: amLODIPine 5 MG Tablet PO SCH (08:50)
--- NOTE | 2018-05-11 13:51 | P.PNIM ---
Subjective Interval history: Mrs. Culp was afebrile with stable vital signs overnight. Patient was interviewed while eating lunch today; she states that she is doing well without complaints. Patient does not report chest pain, shortness of breath , or urinary or bowel concerns. Physical Exam Vital signs: Vital Signs 05/10/18 14:54 05/10/18 16:00 05/10/18 20:00 Temperature 97.8 F 97.3 F L Pulse Rate 78 68 73 Respiratory Rate 18 16 Blood Pressure 136/71 152/70 H Pulse Oximetry 100 100 05/11/18 00:00 05/11/18 04:00 05/11/18 08:00 Temperature 97.6 F 97.6 F 97.6 F Pulse Rate 64 64 92 H Respiratory Rate 18 16 18 Blood Pressure 135/67 121/67 143/65 H Pulse Oximetry 93 L 99 93 L 05/11/18 12:00 Temperature 98.8 F Pulse Rate 62 Respiratory Rate 16 Blood Pressure 142/75 H Pulse Oximetry Intake & Output 05/10/18 05/11/18 05/11/18 18:59 06:59 18:59 Intake Total 975 / 975 960 / 960 Balance 975 / 975 960 / 960 Weight 79.1 kg Intake: Oral 975 / 975 960 / 960 Other: # Voids 2 3 1 Date of Last Bowel Movement 05/08/18 05/10/18 05/10/18 Narrative: GENERAL: NAD SKIN: Warm and dry. No visible lesions HEAD: Normocephalic. EYES: EOM grossly I CARDIOVASCULAR: Regular rate and rhythm without murmurs. Normal perfusion RESPIRATORY: CTAB; normal rate GASTROINTESTINAL: Abdomen soft, non-tender, nondistended. MUSCULOSKELETAL: No calf asymmetry Neuro: Grossly normal CN; grossly normal peripheral motor/sensory function Results - Labs CBC & Chem 7: 05/10/18 06:10 05/08/18 02:00 - Procedures Left heart catheterization May 08, 2018 Assessment and Plan - Assessment (1) Non-ST elevation PR (NSTEMI) Code(s): I21.4 - Non-ST elevation (NSTEMI) myocardial infarction Status: Acute - Plan 68-year-old female with: 05/11- No recent changes Non-ST elevation PR Impression: s/p LHC with finding of Patent DEVLIN-LAD; Occluded SVG to OM, GIDEON ( previously stented), and PDA. There are now Left to right collaterals to the GIDEON and PDA territory 2D echo with EF 60-65% -Management per cardiology -Currently on beta-karly, Lipitor 20 mg at bedtime, aspirin 81 mg daily, Morphine/Nitro. Off Heparin Hypertension Continue with Toprol-XL 25 mg daily, Norvasc 5 mg daily Hyperlipidemia On statin History of CAD, status post CABG Continue with aspirin Global weakness PT consulted May 09, 2018, recommended discharge to SNF Code Status: Full code Discharge Planning: Planned discharge to SNF once accepted
[2018-05-12 07:42] LABS: Calcium 8.7 mg/dL (8.5-10.1); Carbon Dioxide 28.1 meq/L (21.0-32.0); Potassium 3.9 meq/L (3.5-5.1)
[2018-05-12] MEDS: SOD CHLORIDE 0.9% IV.CONT SCH ×2 (07:56→14:03)
[2018-05-12] MEDS: Pantoprazole Sodium 20 MG DR Tablet PO SCH (08:55)
[2018-05-12] MEDS: Divalproex 250 MG ER Tablet PO SCH (08:55)
[2018-05-12] MEDS: amLODIPine 5 MG Tablet PO SCH (08:55)
[2018-05-12 10:32] VITALS: O2SAT 100
[2018-05-12 12:27] VITALS: BP 132/70; PULSE 62; RESP 16; TEMP 97.8
== END 2018-05-12 15:23 ==
LOC: PHED 00:49 → PHEDA 03:03 → INTOOBSV 03:03 → NEPHCDU 08:10 → HCIS 14:00 → N06 18:41
PROVIDERS: ADMIT Family Medicine; ATTEND Family Medicine
DX: F12.90 Cannabis use, unspecified, uncomplicated; I25.10 Atherosclerotic heart disease of native coronary artery without angina pectoris; Z91.19 Patient's noncompliance with other medical treatment and regimen; R53.1 Weakness; Z79.82 Long term (current) use of aspirin; E78.5 Hyperlipidemia, unspecified; Z79.899 Other long term (current) drug therapy; M79.602 Pain in left arm; R07.9 Chest pain, unspecified; I21.4 Non-ST elevation (NSTEMI) myocardial infarction; Z87.891 Personal history of nicotine dependence; I10 Essential (primary) hypertension; I69.320 Aphasia following cerebral infarction; Z88.0 Allergy status to penicillin; I25.810 Atherosclerosis of coronary artery bypass graft(s) without angina pectoris

== ENCOUNTER 2018-05-15 00:06 | Inpatient (IN) ==
--- NOTE | 2018-05-15 00:51 | XR ---
EXAM DATE: 05/15/2018 12:37 AM EDT AGE/SEX: 68 years / Female INDICATIONS: Chest pain. CLINICAL DATA: This is the patient's initial encounter. Patient reports that signs and symptoms have been present for 1 day and indicates a pain score of 7/10. MEDICAL/SURGICAL HISTORY: . Diabetes mellitus type II. Chronic obstructive pulmonary disease. H ypertension. . CABG. Hysterectomy. Cervical fusion. COMPARISON: [facility], CHEST 1V SINGLE AP, 05/08/2018. . FINDINGS: Postsurgical features of prior median sternotomy and cardiac surgery. Stable left lower lobe pleural- parenchymal opacity. No new focal pleural or parenchymal opacities. Redemonstration of metallic densi ty adjacent to the mid left clavicle. Osseous structures are grossly intact. CONCLUSION: 1. Stable left lower lobe pleural-parenchymal disease. 2. No acute abnormality or significant interval change. Electronically signed by: Chris Olivera MD 05/15/2018 12:49 AM EDT
[2018-05-15 00:57] LABS: Baso # (Auto) 0.1 th/mm3 (0.0-0.2); Baso % (Auto) 0.8 % (0.0-2.0); Eos # (Auto) 0.2 th/mm3 (0.0-0.4); Eos % (Auto) 2.2 % (0.0-4.0); Hematocrit 34.3 % (35.0-46.0); Hemoglobin 11.3 gm/dL (11.6-15.3); Lymph # (Auto) 2.1 th/mm3 (1.0-4.8); Lymph % (Auto) 29.8 % (9.0-44.0); Mean Corpuscular HGB Conc 32.9 % (32.0-36.0); Mean Corpuscular Volume 90.9 fL (80.0-100.0); Mean Platelet Volume 9.4 fL (7.0-11.0); Mono # (Auto) 0.3 th/mm3 (0.0-0.9); Mono % (Auto) 4.9 % (0.0-8.0); Neut # (Auto) 4.4 th/mm3 (1.8-7.7); Neut % (Auto) 62.3 % (16.0-70.0); Platelet Count 258 th/mm3 (150-450); Red Blood Count 3.77 mil/mm3 (4.00-5.30); Red Cell Distribution Width 14.7 % (11.6-17.2); White Blood Count 7.1 th/mm3 (4.0-11.0)
--- NOTE | 2018-05-15 01:09 | ED ---
HPI General Chief Complaint: Chest Pain Stated Complaint: Chest Pain Time Seen by Provider: 05/15/18 00:15 Source: patient Mode of arrival: ambulatory Limitations: no limitations History of Present Illness HPI narrative: 68-year-old woman with history of hypertension, TIA, four strokes , and in STEMI (earlier this month) who presents with chest pains. Although she is currently pain-free, she had 4 episodes of substernal pressure that radiated to her left arm. She was [facility] the [facility] she has been staying since that time. Tonight she was lying in bed watching television when she developed the first episode of chest pressure. She pressed the call knapp and the nurse who arrived administered her nitroglycerin. The first, second, third pills did not work but after several minutes the pressure went away. This was followed by another episode that occurred while she was walking back from the bathroom. She then had 2 more episodes before paramedics arrived. Paramedics administered the patient three 81 mg aspirin tablets. She denies shortness of breath, nausea, vomiting but endorses diaphoresis with the pain. She states that she has been compliant with her medications since hospital discharge because the prison facility administers them to her. Related Data Home Medications Medication Instructions Recorded Confirmed alprazolam [Xanax] 1 mg PO BID 05/08/18 05/15/18 atorvastatin 20 mg PO DAILY 05/08/18 05/15/18 nitroglycerin 0.4 mg SUBLINGUAL Q5-15M PRN 05/08/18 05/15/18 omeprazole 20 mg PO DAILY 05/08/18 05/15/18 pravastatin 40 mg PO DAILY 05/08/18 05/15/18 Previous Rx's Medication Instructions Recorded amlodipine [Norvasc] 5 mg PO DAILY #30 tab 04/27/18 aspirin [Ecotrin Low Strength] 81 mg PO DAILY #30 tab 04/27/18 divalproex [Depakote ER] 250 mg PO BID #60 tab 04/27/18 metoprolol succinate 25 mg PO DAILY #30 tab 05/09/18 Allergies Allergy/AdvReac Type Severity Reaction Status Date / Time amlodipine Allergy Severe Swelling Verified 05/08/18 19:51 lisinopril Allergy Severe Swelling Verified 05/08/18 19:51 Fish Containing Products Allergy Intermediate Swelling Verified 09/07/18 00:51 penicillin G Allergy Intermediate swelling Verified 05/08/18 00:51 /hives all over Sulfa (Sulfonamide Allergy Mild swelling Verified 05/08/18 00:51 Antibiotics) ciprofloxacin Allergy Unknown swelling Verified 05/08/18 00:51 Review of Systems ROS: all other systems reviewed are negative [facility] Medical History Medical History Aphasia as late effect of cerebrovascular accident (CVA) (Acute) CKD (chronic kidney disease) (Acute) Dysarthria as late effect of cerebrovascular accident (CVA) (Acute) Hyperlipidemia (Acute) Muscle weakness (generalized) (Acute) STEMI (ST elevation myocardial infarction) (Acute) CVA (cerebral vascular accident) (Acute) Dyslipidemia (Acute) History of hysterectomy (Acute) Marijuana use (Acute) Seizure (Acute) CAD (coronary artery disease) (Chronic) HTN (hypertension) (Chronic) Surgical History Surgical History S/P CABG (coronary artery bypass graft) (Acute) Family History Family History Other Family history of diabetes mellitus Family history of hypertension Social History Social History Substance History: No History of Abuse Second Hand Smoke Exposure: Yes Smoking Status: Former smoker Tobacco Type: Cigarettes How Often Do You Have a Drink Containing Alcohol: Never Recent Travel in [facility] within the Last 8 Weeks: No Recent Out of Country Travel within the Last 8 Weeks: No Immunization History Tetanus Immunization: >5 Years Hx Influenza Vaccine This Season: No Exam Narrative Exam Narrative: GENERAL: Nontoxic 68-year-old female seated on exam stretcher in no apparent distress. Her adult son and a family friend are seated at bedside. SKIN: Focused skin assessment warm/dry. HEAD: Atraumatic. Normocephalic. EYES: Pupils equal and round. No scleral icterus. No injection or drainage. ENT: No nasal bleeding or discharge. Mucous membranes pink and moist. NECK: Trachea midline. No JVD. CARDIOVASCULAR: Regular rate and rhythm. No murmur appreciated. RESPIRATORY: No accessory muscle use. Clear to auscultation. Breath sounds equal bilaterally. GASTROINTESTINAL: Abdomen soft, non-tender, nondistended. Hepatic and splenic margins not palpable. MUSCULOSKELETAL: No obvious deformities. No clubbing. No cyanosis. No edema. NEUROLOGICAL: Awake and alert. No obvious cranial nerve deficits. Motor grossly within normal limits. Normal speech. PSYCHIATRIC: Appropriate mood and affect; insight and judgment normal. Course Consultations Consultation #1: Spoke with Dr. Duncan regarding the patient's case. She will admit to cardiac ICU for evaluation of patient's chest pain and elevated troponin. Time: 02:45 Initial Documented Vital Signs Pulse Rate 75 05/15/18 00:09 Respiratory Rate 18 05/15/18 00:09 Blood Pressure 136/64 05/15/18 00:09 Pulse Oximetry 98 05/15/18 00:09 Last Documented Vital Signs Pulse Rate 62 05/15/18 06:00 Respiratory Rate 18 05/15/18 06:34 Blood Pressure 152/84 H 05/15/18 06:00 Pulse Oximetry 96 05/15/18 06:00 Medical Decision Making MDM Narrative Medical decision making narrative: 68-year-old woman with history of recent and STEMI who presents with anginal chest pain. She has significantly abnormal ECG , but the changes do appear better than previous. She is mild elevation in her troponin which may represent residual troponin leak from previous and STEMI or new and STEMI. Symptoms seem consistent with unstable angina. However patient had negative cardiac cath wall last hospitalized. I doubt PE given her history of ACS and lack of respiratory symptoms. Started on heparin for treatment of presumed unstable angina versus an STEMI. Gave Nitropaste for relief of chest pain which recurred after my initial evaluation and interview. Medical Screen Exam Complete: Yes Emergency Medical Condition: Yes Medical Records Medical records reviewed: Yes I reviewed the patient's medical records. Recent admission earlier this month for an STEMI. Lab Data Lab results reviewed: Yes I reviewed the patient's lab results. Lab results narrative: Mild elevation of troponin. Creatinine appears baseline. Result diagrams: 05/15/18 00:30 05/15/18 00:30 Lab Results 05/15/18 05/15/18 05/15/18 Range/Units 00:30 00:30 01:15 WBC 7.1 (4.0-11.0) th/mm3 RBC 3.77 L (4.00-5.30) mil/mm3 Hgb 11.3 L (11.6-15.3) gm/dL Hct 34.3 L (35.0-46.0) % MCV 90.9 (80.0-100.0) fL MCH 30.0 (27.0-34.0) pg MCHC 32.9 (32.0-36.0) % RDW 14.7 (11.6-17.2) % Plt Count 258 (150-450) th/mm3 MPV 9.4 (7.0-11.0) fL Neut % (Auto) 62.3 (16.0-70.0) % Lymph % (Auto) 29.8 (9.0-44.0) % Campbell % (Auto) 4.9 (0.0-8.0) % Eos % (Auto) 2.2 (0.0-4.0) % Baso % (Auto) 0.8 (0.0-2.0) % Neut # (Auto) 4.4 (1.8-7.7) th/mm3 Lymph # (Auto) 2.1 (1.0-4.8) th/mm3 Campbell # (Auto) 0.3 (0.0-0.9) th/mm3 Eos # (Auto) 0.2 (0.0-0.4) th/mm3 Baso # (Auto) 0.1 (0.0-0.2) th/mm3 WBC Differential . Differential Comment Auto diff final PT 12.0 H (9.8-11.6) sec INR 1.2 Ratio APTT 25.9 (24.3-30.1) sec Sodium 144 (136-145) meq/L Potassium 4.0 (3.5-5.1) meq/L Chloride 111 H (98-107) meq/L Carbon Dioxide 27.4 (21.0-32.0) meq/L Anion Gap 6 (5-15) meq/L BUN 24 H (7-18) mg/dL Creatinine 1.41 H (0.50-1.00) mg/dL Estimated GFR 45 L (>89) mL/min Random Glucose 110 H (74-106) mg/dL Calcium 7.9 L (8.5-10.1) mg/dL Total Bilirubin 0.1 L (0.2-1.0) mg/dL AST 16 (15-37) U/L ALT 14 (10-53) U/L Alkaline Phosphatase 72 (45-117) U/L Total Creatine Kinase (26-192) U/L Troponin I 0.18 H D (0.02-0.05) ng/mL Total Protein 6.6 D (6.4-8.2) g/dL Albumin 2.6 L (3.4-5.0) g/dL Lipase 99 (73-393) U/L Nasal Screen MRSA (PCR) (Negative) 05/15/18 05/15/18 Range/Units 04:00 05:05 WBC (4.0-11.0) th/mm3 RBC (4.00-5.30) mil/mm3 Hgb (11.6-15.3) gm/dL Hct (35.0-46.0) % MCV (80.0-100.0) fL MCH (27.0-34.0) pg MCHC (32.0-36.0) % RDW (11.6-17.2) % Plt Count (150-450) th/mm3 MPV (7.0-11.0) fL Neut % (Auto) (16.0-70.0) % Lymph % (Auto) (9.0-44.0) % Campbell % (Auto) (0.0-8.0) % Eos % (Auto) (0.0-4.0) % Baso % (Auto) (0.0-2.0) % Neut # (Auto) (1.8-7.7) th/mm3 Lymph # (Auto) (1.0-4.8) th/mm3 Campbell # (Auto) (0.0-0.9) th/mm3 Eos # (Auto) (0.0-0.4) th/mm3 Baso # (Auto) (0.0-0.2) th/mm3 WBC Differential Differential Comment PT (9.8-11.6) sec INR Ratio APTT (24.3-30.1) sec Sodium (136-145) meq/L Potassium (3.5-5.1) meq/L Chloride (98-107) meq/L Carbon Dioxide (21.0-32.0) meq/L Anion Gap (5-15) meq/L BUN (7-18) mg/dL Creatinine (0.50-1.00) mg/dL Estimated GFR (>89) mL/min Random Glucose (74-106) mg/dL Calcium (8.5-10.1) mg/dL Total Bilirubin (0.2-1.0) mg/dL AST (15-37) U/L ALT (10-53) U/L Alkaline Phosphatase (45-117) U/L Total Creatine Kinase 85 (26-192) U/L Troponin I 0.20 H (0.02-0.05) ng/mL Total Protein (6.4-8.2) g/dL Albumin (3.4-5.0) g/dL Lipase (73-393) U/L Nasal Screen MRSA (PCR) Not detected (Negative) Imaging Data Radiologist's impression: Chest X-Ray 05/15/18 00:22 CONCLUSION: 1. Stable left lower lobe pleural-parenchymal disease. 2. No acute abnormality or significant interval change. ECG Data Attestation: I personally reviewed and interpreted this ECG as follows: Interpretation: Sinus rhythm, rate 69 bpm, SD interval 193 ms, QRS interval 145 ms, QTc interval 431 ms, significant ST depression globally with minimal ST elevation in aVR, this appears similar to patient's prior ECG pattern but depth and height of ST changes is not as pronounced, not a STEMI. Discharge Plan Discharge Disposition Patient Disposition: 30 Still Patient Discharge Condition Condition: Fair Discharge Details Diagnosis: Angina pectoris, unstable, Elevated troponin I level Physicians Team ED Provider: Marco Sawant Primary Care Provider: Jodie Giraldo Attending Provider: Todd Antoine Other Providers: Zhang Fairchild ; Praful Basilio Discharge Interventions Interventions: ED Discharge Assessment Last Done: 05/15/18 05:19 Status ED Status: Left Department Discharge Information Discharge Date/Time: 05/15/18 05:20
[2018-05-15 01:12] LABS: Alanine Aminotransferase 14 U/L (10-53)
[2018-05-15 01:16] LABS: Alkaline Phosphatase 72 U/L (45-117); Total Protein 6.6 g/dL (6.4-8.2); Troponin I 0.18 ng/mL (0.02-0.05)
[2018-05-15 01:20] LABS: Albumin 2.6 g/dL (3.4-5.0); Anion Gap 6 meq/L (5-15); Aspartate Aminotransferase 16 U/L (15-37); Blood Urea Nitrogen 24 mg/dL (7-18); Calcium 7.9 mg/dL (8.5-10.1); Carbon Dioxide 27.4 meq/L (21.0-32.0); Chloride 111 meq/L (98-107); Glomerular Filtration Rate 45 mL/min (>89); Glucose,Random 110 mg/dL (74-106); Lipase 99 U/L (73-393); Sodium 144 meq/L (136-145)
[2018-05-15] MEDS ORDERED: Heparin 10,000 UNITS/10 ML Vial (for IV use) IV.PUSH STA (01:22)
[2018-05-15] MEDS ORDERED: Heparin Drip 25,000 UNIT/250 ML BAG IV.CONT PRN (01:22)
[2018-05-15 02:15] LABS: Activated Partial Thrombo Time 25.9 sec (24.3-30.1); INR 1.2 Ratio
[2018-05-15] MEDS ORDERED: Acetaminophen 325 MG Tablet PO PRN (03:06)
--- NOTE | 2018-05-15 03:57 | P.HP ---
History of Present Illness Service: [facility] Primary Care Physician: Jodie Giraldo DO History of Present Illness: 68-year-old female with past medical history significant for coronary artery disease status post NSTEMI and cardiac catheterization on 05/08/18, chronic kidney disease, history of CVA, hypertension, hyperlipidemia and seizure disorder presents to the emergency department for evaluation of chest pain. The patient reports that earlier today she started having substernal chest pain that felt as if someone was "sitting on her chest." She states the pain radiated down her left arm. It is intermittent and comes on at rest. Her troponin was elevated at 0.18. Last troponin from previous visit was 4.0. The patient denies any shortness of breath. No fever/chills. No abdominal pain. No nausea/vomiting/diarrhea. No lateralizing signs/symptoms. Inpatient Certification: I certify that the inpatient services were ordered in accordance with Medicare regulations governing the order. This includes certification that hospital inpatient services are reasonable and necessary and in the case of services not specified as inpatient-only under 42 CFR 419.22(n), that they are appropriately provided as inpatient services in accordance to with the 2-midnight benchmark under 43 CFR 412.3(e) Review of Systems All other systems reviewed negative except as stated in HPI PMFSH - History History Provided By: Medical Record - Medical History Medical History: Medical History (Last Reviewed 05/15/18 @ 03:47 by Alondra Duncan MD) Aphasia as late effect of cerebrovascular accident (CVA) CKD (chronic kidney disease) Dysarthria as late effect of cerebrovascular accident (CVA) Hyperlipidemia Muscle weakness (generalized) STEMI (ST elevation myocardial infarction) CVA (cerebral vascular accident) Dyslipidemia History of hysterectomy Marijuana use Seizure CAD (coronary artery disease) HTN (hypertension) - Surgical History Surgical History: Surgical History (Last Reviewed 05/15/18 @ 03:47 by Alondra Duncan MD) S/P CABG (coronary artery bypass graft) - Family History Family History: Family History (Last Reviewed 05/15/18 @ 03:47 by Alondra Duncan MD) Other Family history of diabetes mellitus Family history of hypertension - Tobacco History Second Hand Smoke Exposure: Yes Tobacco Use In Past 30 Days: No Smoking Status: Never smoker Tobacco Type: Cigarettes - Alcohol History How Often Do You Have a Drink Containing Alcohol: Never - Substance Use History Substance History: No History of Abuse - Travel History Recent Travel in the [place] Within the Last 8 Weeks: No Recent Travel Out of the Country Within the Last 8 Weeks: No - Immunization History Tetanus Immunization: >5 Years Hx Influenza Vaccine This Season: No Medications and Allergies Active Medications: Active Medications Acetaminophen (Tylenol) 650 mg PO Q4H PRN PRN Reason: Temp > 100.4 Heparin Sodium (Porcine) (Heparin Inj) 2,500 units IV.PUSH UNSCH PRN PRN Reason: aPTT 25-39 Heparin Sodium/Dextrose (Heparin/D5w 25,000 U/250 Ml) 25,000 unit in 250 mls @ 0 mls/hr IV.CONT TITRATE PRN; Protocol PRN Reason: Per Protocol Last Admin: 05/15/18 01:56 Dose: 900 units/hr, 9 mls/hr Ondansetron HCl (Zofran Inj) 4 mg IV.PUSH Q6H PRN PRN Reason: NAUSEA OR VOMITING Sodium Chloride (Ns Flush) 2 ml IV.FLUSH UNSCH PRN PRN Reason: FLUSH AFTER USING IV ACCESS Allergies Allergy/AdvReac Type Severity Reaction Status Date / Time amlodipine Allergy Severe Swelling Verified 05/08/18 19:51 lisinopril Allergy Severe Swelling Verified 05/08/18 19:51 Fish Containing Products Allergy Intermediate Swelling Verified 05/08/18 00:51 penicillin G Allergy Intermediate swelling Verified 05/08/18 00:51 /hives all over Sulfa (Sulfonamide Allergy Mild swelling Verified 05/08/18 00:51 Antibiotics) ciprofloxacin Allergy Unknown swelling Verified 05/08/18 00:51 Home Medications Medication Instructions Recorded Confirmed Type alprazolam [Xanax] 1 mg PO BID 05/08/18 05/15/18 History atorvastatin 20 mg PO DAILY 05/08/18 05/15/18 History nitroglycerin 0.4 mg SUBLINGUAL Q5-15M PRN 05/08/18 05/15/18 History omeprazole 20 mg PO DAILY 05/08/18 05/15/18 History pravastatin 40 mg PO DAILY 05/08/18 05/15/18 History Exam Vital signs: Vital Signs 05/15/18 00:09 05/15/18 02:10 Pulse Rate 75 66 Respiratory Rate 18 18 Blood Pressure 136/64 136/74 Pulse Oximetry 98 99 Intake & Output 05/14/18 05/14/18 05/15/18 06:59 18:59 06:59 Weight 74.096 kg Narrative: Gen.: No acute distress Head: Normocephalic. Atraumatic. EENT: Pupils equal round and reactive to light. Nose without drainage. Airway intact. Throat without injection. Cardiovascular: Regular rate and rhythm. No murmurs, rubs or gallops. Respiratory: Lungs clear to auscultation bilaterally. No wheezes or rhonchi. Abdomen: Soft, nontender, nondistended. No peritoneal signs. Musculoskeletal: No gross deformities. No edema. Skin: No obvious rashes or erythema. Neuro: Sensory and motor grossly intact. Cranial nerves II through XII grossly intact. Results - Labs CBC & Chem 7: 05/15/18 00:30 05/15/18 00:30 Labs: Laboratory Results - last 24 hr 05/15/18 05/15/18 05/15/18 00:30 00:30 01:15 WBC 7.1 RBC 3.77 L Hgb 11.3 L Hct 34.3 L MCV 90.9 MCH 30.0 MCHC 32.9 RDW 14.7 Plt Count 258 MPV 9.4 Neut % (Auto) 62.3 Lymph % (Auto) 29.8 [place] % (Auto) 4.9 Eos % (Auto) 2.2 Baso % (Auto) 0.8 Neut # (Auto) 4.4 Lymph # (Auto) 2.1 [place] # (Auto) 0.3 Eos # (Auto) 0.2 Baso # (Auto) 0.1 WBC Differential . Differential Comment Auto diff final PT 12.0 H INR 1.2 APTT 25.9 Sodium 144 Potassium 4.0 Chloride 111 H Carbon Dioxide 27.4 Anion Gap 6 BUN 24 H Creatinine 1.41 H Estimated GFR 45 L Random Glucose 110 H Calcium 7.9 L Total Bilirubin 0.1 L AST 16 ALT 14 Alkaline Phosphatase 72 Troponin I 0.18 H D Total Protein 6.6 D Albumin 2.6 L Lipase 99 - Imaging Impressions Chest X-Ray 05/15/18 00:22 CONCLUSION: 1. Stable left lower lobe pleural-parenchymal disease. 2. No acute abnormality or significant interval change. Caprini VTE Risk Assessment Caprini VTE Risk Assessment: Moderate/High Risk (score >= 2) Caprini Risk Assessment Model: Point Value = 1 Point Value = 2 Point Value = 3 Point Value = 5 Age 41-60 Minor surgery BMI > 25 kg/m2 Swollen legs Varicose veins or History of unexplained or recurrent spontaneous Oral contraceptives or hormone replacement Sepsis (< 1 month) Serious lung disease, including pneumonia (< 1 month) Abnormal pulmonary function Acute myocardial infarction Congestive heart failure (< 1 month) History of inflammatory bowel disease Medical patient at bed rest Age 61-74 Arthroscopic surgery Major open surgery (> 45 min) Laparoscopic surgery (> 45 min) Malignancy Confined to bed (> 72 hours) Immobilizing plaster cast Central venous access Age >= 75 History of VTE Family history of VTE Factor V Leiden Prothrombin [id number] Lupus anticoagulant Anticardiolipin antibodies Elevated serum homocysteine Heparin-induced thrombocytopenia Other congenital or acquired thrombophilia Stroke (< 1 month) Elective arthroplasty Hip, pelvis, or leg fracture Acute spinal cord injury (< 1 month) Prophylaxis Regimen: Total Risk Factor Score Risk Level Prophylaxis Regimen 0-1 Low Early ambulation 2 Moderate Order ONE of the following: *Sequential Compression Device (SCD) *Heparin 5000 units SQ BID 3-4 Higher Order ONE of the following medications: *Heparin 5000 units SQ TID *Enoxaparin/Lovenox 40 mg SQ daily (WT < 150 kg, CrCl > 30 mL/min) *Enoxaparin/Lovenox 30 mg SQ daily (WT < 150 kg, CrCl > 10-29 mL/min) *Enoxaparin/Lovenox 30 mg SQ BID (WT < 150 kg, CrCl > 30 mL/min) AND/OR *Sequential Compression Device (SCD) 5 or more Highest Order ONE of the following medications: *Heparin 5000 units SQ TID (Preferred with Epidurals) *Enoxaparin/Lovenox 40 mg SQ daily (WT < 150 kg, CrCl > 30 mL/min) *Enoxaparin/Lovenox 30 mg SQ daily (WT < 150 kg, CrCl > 10-29 mL/min) *Enoxaparin/Lovenox 30 mg SQ BID (WT < 150 kg, CrCl > 30 mL/min) AND *Sequential Compression Device (SCD) Assessment and Plan - Plan Assessment/plan: 1. Elevated troponin/CAD Initial troponin in the emergency department 0.18, patient's last troponin done on 9/7/18 was 4.0 She is status post N STEMI 1 week ago Seen and evaluated by cardiology at that time Status post cardiac catheterization which showed patent DEVLIN to LAD. Also showed occluded SVG to OM, GIDEON and PDA. Collaterals present. Plan was for medical therapy and tight blood pressure control. Patient was started on a heparin drip by the emergency department out of concern for unstable angina Trend troponin which will likely continue to be elevated due to recent NSTEMI Cardiology consulted, appreciate recommendations 2. Chronic kidney disease Mean 1.41, at baseline Monitor renal function 3. Hypertension/hyperlipidemia Continue home medications 4. Seizure disorder Continue home Depakote FEN N.p.o. Electrolytes: Monitor and replete as needed Heparin drip
[2018-05-15 04:52] LABS: Troponin I 0.2 ng/mL (0.02-0.05)
[2018-05-15] MEDS: Morphine Inj 4 MG/ML Vial IV.PUSH PRN ×3 (06:00→21:00)
[2018-05-15] MEDS ORDERED: Heparin 10,000 UNITS/10 ML Vial (for IV use) IV.PUSH PRN (07:23)
[2018-05-15] MEDS: Pantoprazole Sodium 20 MG DR Tablet PO SCH (08:13)
[2018-05-15] MEDS: Divalproex 250 MG ER Tablet PO SCH ×2 (08:13→20:08)
[2018-05-15] MEDS ORDERED: amLODIPine 5 MG Tablet PO SCH (09:00)
--- NOTE | 2018-05-15 10:21 | MB ---
cc: Westley Ortega MD DATE: 05/15/2018 HISTORY OF PRESENT ILLNESS: Jody Culp is an unfortunate 64-year-old female who has had all of her bypasses close but her left internal mammary graft. She was just hospitalized with a non-STEMI and had a cardiac catheterization by my colleague, Dr. Valiente on 05/08/2018. Her left internal mammary bypass graft is open to the LAD. Unfortunately, the other grafts are closed. She has occlusion of the right coronary artery and occlusion of the circumflex marginal artery that are filling by collaterals. She has severe hypertension. Since discharge, she has been having nightly chest pain and pain in her left arm, associated with nausea. It has been occurring nightly. She came in. Her troponin was mildly elevated. It was not as elevated as it was on her previous catheterization. She lives alone. She still drives a car, despite having a prior stroke. She has nobody to help take care of her when I asked her. MEDICATIONS: Include: 1. Amlodipine 5 mg. 2. Metoprolol 25 mg. 3. Aspirin. 4. Statin. PAST MEDICAL HISTORY: Includes a previous stroke with dysarthria, hyperlipidemia, previous [place], seizure disorder, severe hypertension. PAST SURGICAL HISTORY: Includes hysterectomy, bypass surgery in 12/2007. ALLERGIES: INCLUDE PENICILLINS AND SULFA. FAMILY HISTORY: Positive for pacemaker in her father. SOCIAL HISTORY: She smoked 1 pack a day from age 12 to age 47. She smokes marijuana a couple times a week. REVIEW OF SYSTEMS: Otherwise noncontributory. PHYSICAL EXAMINATION: GENERAL: Elderly, black female who appears older than her stated age. VITAL SIGNS: Charted. Blood pressure is mildly elevated. She has dysarthric speech. HEENT: Unremarkable. NECK: No JVD. No bruits appreciated. CHEST: Clear to auscultation. CARDIAC: S1, S2. Regular rate and rhythm. No murmurs. There is an S4 gallop. ABDOMEN: Soft, nontender. No masses or organomegaly. EXTREMITIES: Show absent pedal pulses, diminished femoral pulses. Radial pulses are palpable. DIAGNOSTIC DATA: EKG demonstrates sinus rhythm, right bundle branch block, left anterior fascicular block. Diffuse ST-T wave abnormalities, possible ischemia. LABORATORY DATA: Hematocrit 34.3. Her creatinine is 1.41. Creatinine is actually down from previous. Troponin is 0.18 and it was 4.08 a week ago. INR is normal. Her chest x-ray shows stable left lower lobe parenchymal disease, no acute abnormality. IMPRESSION: Post-infarct angina. Unfortunately, her catheterization is showing very limited things we can do. There does not appear to be any percutaneous or surgical revascularization possible. That is my opinion from looking at her films. That is also Dr. Valiente's opinion. RECOMMENDATIONS: I think the best we can do is maximize her medications. I am going go put her on Toprol up to 50 mg and put her on amlodipine up to 10 mg. Add clopidogrel, continue aspirin, and continue statin. I may add Ranexa at some point, although I wonder whether should be able to afford that. At least her LV function is normal, or at least it was by her echocardiogram 05/09/2018. Further therapy to be determined. MD KAITLIN Sparrow/neal , 08:45 AM , 08:55 AM
[2018-05-15] MEDS: amLODIPine 10 MG Tablet PO SCH (10:36)
[2018-05-15 14:11] LABS: Troponin I 0.19 ng/mL (0.02-0.05)
[2018-05-16 03:24] LABS: Baso # (Auto) 0.1 th/mm3 (0.0-0.2); Baso % (Auto) 0.8 % (0.0-2.0); Eos # (Auto) 0.2 th/mm3 (0.0-0.4); Eos % (Auto) 2.7 % (0.0-4.0); Hemoglobin 11.3 gm/dL (11.6-15.3); Lymph # (Auto) 2.2 th/mm3 (1.0-4.8); Lymph % (Auto) 29.8 % (9.0-44.0); Mean Corpuscular HGB Conc 33.2 % (32.0-36.0); Mean Corpuscular Hemoglobin 29.8 pg (27.0-34.0); Mean Corpuscular Volume 89.7 fL (80.0-100.0); Mean Platelet Volume 8.6 fL (7.0-11.0); Mono # (Auto) 0.4 th/mm3 (0.0-0.9); Neut # (Auto) 4.4 th/mm3 (1.8-7.7); Neut % (Auto) 60.7 % (16.0-70.0); Platelet Count 283 th/mm3 (150-450); Red Blood Count 3.79 mil/mm3 (4.00-5.30); Red Cell Distribution Width 15.1 % (11.6-17.2); White Blood Count 7.3 th/mm3 (4.0-11.0)
[2018-05-16 03:43] LABS: Calcium 8.5 mg/dL (8.5-10.1); Carbon Dioxide 29.2 meq/L (21.0-32.0); Potassium 4.5 meq/L (3.5-5.1)
[2018-05-16] MEDS ORDERED: Chlorhexidine Gluconate 2% 1 Pack (2 Cloths) TOPICAL PRN (04:00)
[2018-05-16] MEDS: Chlorhexidine Gluconate 2% 1 Pack (2 Cloths) TOPICAL SCH (05:26)
--- NOTE | 2018-05-16 07:53 | P.PN ---
Subjective Interval history: Pt seen and examined. She reports she continues to have intermittent substernal chest pressure that radiates to her left arm but has not had any this AM. She has no complaints at this time other than being left alone to eat breakfast. She denies SOB, N/V. Physical Exam Vital signs: Vital Signs 05/15/18 08:00 05/15/18 09:00 05/15/18 09:01 Temperature 96.1 F L Pulse Rate 60 67 65 Respiratory Rate 18 29 H 23 Blood Pressure 156/79 H 146/77 H Pulse Oximetry 99 98 99 05/15/18 10:00 05/15/18 11:00 05/15/18 12:00 Temperature 97.6 F Pulse Rate 65 64 66 Respiratory Rate 15 26 H 32 H Blood Pressure 137/66 113/63 Pulse Oximetry 97 97 99 05/15/18 12:01 05/15/18 13:00 05/15/18 14:00 Temperature Pulse Rate 69 67 65 Respiratory Rate 22 20 16 Blood Pressure 118/77 138/70 113/65 Pulse Oximetry 99 99 98 05/15/18 15:00 05/15/18 16:00 05/15/18 17:00 Temperature 97.8 F Pulse Rate 67 64 65 Respiratory Rate 16 13 18 Blood Pressure 116/61 123/58 L 138/72 Pulse Oximetry 98 99 100 05/15/18 18:00 05/15/18 18:02 05/15/18 18:44 Temperature Pulse Rate 67 71 71 Respiratory Rate 12 21 19 Blood Pressure 133/69 131/69 Pulse Oximetry 100 100 100 05/15/18 19:00 05/15/18 19:05 05/15/18 20:00 Temperature Pulse Rate 69 69 71 Respiratory Rate 18 19 25 H Blood Pressure 158/69 H Pulse Oximetry 100 100 100 05/15/18 20:01 05/15/18 21:00 05/15/18 22:00 Temperature 98.8 F Pulse Rate 71 68 74 Respiratory Rate 25 H 14 15 Blood Pressure 91/68 L 125/70 139/65 Pulse Oximetry 94 L 99 98 05/15/18 23:00 05/15/18 23:09 05/16/18 00:00 Temperature Pulse Rate 69 74 Respiratory Rate 12 17 Blood Pressure 144/65 H Pulse Oximetry 98 97 98 05/16/18 00:01 05/16/18 01:00 05/16/18 01:01 Temperature Pulse Rate 70 66 66 Respiratory Rate 18 35 H 20 Blood Pressure 108/69 154/69 H Pulse Oximetry 97 99 98 05/16/18 02:00 05/16/18 02:01 05/16/18 03:00 Temperature 98.7 F Pulse Rate 68 66 64 Respiratory Rate 19 17 20 Blood Pressure 105/58 L Pulse Oximetry 97 97 97 05/16/18 03:01 05/16/18 04:00 05/16/18 05:00 Temperature 99.0 F Pulse Rate 64 66 60 Respiratory Rate 16 16 15 Blood Pressure 146/64 H 111/61 Pulse Oximetry 97 97 97 05/16/18 05:01 05/16/18 06:00 Temperature Pulse Rate 60 63 Respiratory Rate 16 24 Blood Pressure 125/60 110/58 L Pulse Oximetry 97 97 Intake & Output 05/15/18 05/16/18 05/16/18 18:59 06:59 18:59 Intake Total 750 / 750 250 / 250 Output Total 1700 / 1700 600 / 600 Balance -950 / -950 -350 / -350 Weight 82.1 kg Intake: Oral 750 / 750 250 / 250 Output: Urine Amount (Catheter) 1700 / 1700 600 / 600 Female External 1700 / 1700 600 / 600 Other: # Bowel Movements 0 Narrative: GENERAL: WN, WD AA female sitting up in bed eating breakfast in NAD. SKIN: Warm and dry. HEENT: AT/NC. Pupils equal and round. MMM. NECK: Supple no tender LAD or JVD. HEART: RRR with 1/6 MIRA. LUNGS: CTAB without wheezes or crackles. ABDOMEN: +BS, soft, NT, ND. EXTREMITIES: No LE edema. NEURO: Awake and alert. Speech dysarthric. - Urinary Catheter Management Female External Cath placed during this visit: no Results - Labs CBC & Chem 7: 05/16/18 03:16 05/16/18 03:16 Laboratory Results - last 24 hr 05/15/18 05/15/18 05/15/18 09:18 13:00 13:00 WBC RBC Hgb Hct MCV MCH MCHC RDW Plt Count MPV Neut % (Auto) Lymph % (Auto) [place] % (Auto) Eos % (Auto) Baso % (Auto) Neut # (Auto) Lymph # (Auto) [place] # (Auto) Eos # (Auto) Baso # (Auto) WBC Differential Differential Comment APTT 111.9 H* D 48.8 H D Sodium Potassium Chloride Carbon Dioxide Anion Gap BUN Creatinine Estimated GFR Random Glucose Calcium Total Creatine Kinase 89 Troponin I 0.19 H 05/15/18 05/16/18 05/16/18 18:37 03:16 03:16 WBC 7.3 RBC 3.79 L Hgb 11.3 L Hct 34.0 L MCV 89.7 MCH 29.8 MCHC 33.2 RDW 15.1 Plt Count 283 MPV 8.6 Neut % (Auto) 60.7 Lymph % (Auto) 29.8 [place] % (Auto) 6.0 Eos % (Auto) 2.7 Baso % (Auto) 0.8 Neut # (Auto) 4.4 Lymph # (Auto) 2.2 [place] # (Auto) 0.4 Eos # (Auto) 0.2 Baso # (Auto) 0.1 WBC Differential . Differential Comment Auto diff final APTT 39.4 H Sodium 143 Potassium 4.5 Chloride 107 Carbon Dioxide 29.2 Anion Gap 7 BUN 24 H Creatinine 1.56 H Estimated GFR 40 L Random Glucose 106 Calcium 8.5 Total Creatine Kinase Troponin I 05/16/18 03:16 WBC RBC Hgb Hct MCV MCH MCHC RDW Plt Count MPV Neut % (Auto) Lymph % (Auto) [place] % (Auto) Eos % (Auto) Baso % (Auto) Neut # (Auto) Lymph # (Auto) [place] # (Auto) Eos # (Auto) Baso # (Auto) WBC Differential Differential Comment APTT 40.2 H Sodium Potassium Chloride Carbon Dioxide Anion Gap BUN Creatinine Estimated GFR Random Glucose Calcium Total Creatine Kinase Troponin I Assessment and Plan - Assessment (1) Angina pectoris, unstable Code(s): I20.0 - Unstable angina Status: Acute - Plan 68 year old female with CAD with history of CABG 2007 and recent NSTEMI with cardiac cath on 05/08, CKD, history of multiple CVA, HTN, and HLD admitted for unstable angina. 1. Unstable angina - Pt s/p CABG 2007 and was recently hospitalized a week ago for NSTEMI - Cardiac cath done 05/08 showed patient DEVLIN-LAD and occluded SVG to OM, GIDEON, and PDA with now L-to-R collaterals to the GIDEON and PDA territory - Troponins 0.18, 0.2, 0.19 - Echo done prior admission on 05/09 with preserved EF of 60-65% - Cardiology consulted. Recommending maximizing medical management: added Plavix , increased Toprol and amlodipine - Heparin gtt discontinued - Continue ASA and statin - Nitro PRN 2. HTN - Some elevated readings with systolics in the 150s - Toprol and amlodipine increased - Continue to monitor 3. CKD - Creatinine fluctuates and has been as high as 1.91 last month - 1.67 this AM - Monitor renal function and avoid nephrotoxic agents 4. History of CVA - Continue ASA - Now on Plavix - Came from SNF. PT to eval and treat DVT prophylaxis: Heparin SQ Code Status: Full Discussed Condition With: The patient Discharge Planning: Anticipate D/C in next 1-2 days if cleared by cardiology
[2018-05-16] MEDS: Pantoprazole Sodium 20 MG DR Tablet PO SCH (08:37)
[2018-05-16] MEDS: amLODIPine 10 MG Tablet PO SCH (08:38)
[2018-05-16] MEDS: Divalproex 250 MG ER Tablet PO SCH ×2 (08:38→21:30)
--- NOTE | 2018-05-16 10:04 | P.PNCA ---
Subjective Interval history: Feeling better, no angina this AM Physical Exam Vital signs: Vital Signs 05/15/18 10:00 05/15/18 11:00 05/15/18 12:00 Temperature 97.6 F Pulse Rate 65 64 66 Respiratory Rate 15 26 H 32 H Blood Pressure 137/66 113/63 Pulse Oximetry 97 97 99 05/15/18 12:01 05/15/18 13:00 05/15/18 14:00 Temperature Pulse Rate 69 67 65 Respiratory Rate 22 20 16 Blood Pressure 118/77 138/70 113/65 Pulse Oximetry 99 99 98 05/15/18 15:00 05/15/18 16:00 05/15/18 17:00 Temperature 97.8 F Pulse Rate 67 64 65 Respiratory Rate 16 13 18 Blood Pressure 116/61 123/58 L 138/72 Pulse Oximetry 98 99 100 05/15/18 18:00 05/15/18 18:02 05/15/18 18:44 Temperature Pulse Rate 67 71 71 Respiratory Rate 12 21 19 Blood Pressure 133/69 131/69 Pulse Oximetry 100 100 100 05/15/18 19:00 05/15/18 19:05 05/15/18 20:00 Temperature Pulse Rate 69 69 71 Respiratory Rate 18 19 25 H Blood Pressure 158/69 H Pulse Oximetry 100 100 100 05/15/18 20:01 05/15/18 21:00 05/15/18 22:00 Temperature 98.8 F Pulse Rate 71 68 74 Respiratory Rate 25 H 14 15 Blood Pressure 91/68 L 125/70 139/65 Pulse Oximetry 94 L 99 98 05/15/18 23:00 05/15/18 23:09 05/16/18 00:00 Temperature Pulse Rate 69 74 Respiratory Rate 12 17 Blood Pressure 144/65 H Pulse Oximetry 98 97 98 05/16/18 00:01 05/16/18 01:00 05/16/18 01:01 Temperature Pulse Rate 70 66 66 Respiratory Rate 18 35 H 20 Blood Pressure 108/69 154/69 H Pulse Oximetry 97 99 98 05/16/18 02:00 05/16/18 02:01 05/16/18 03:00 Temperature 98.7 F Pulse Rate 68 66 64 Respiratory Rate 19 17 20 Blood Pressure 105/58 L Pulse Oximetry 97 97 97 05/16/18 03:01 05/16/18 04:00 05/16/18 05:00 Temperature 99.0 F Pulse Rate 64 66 60 Respiratory Rate 16 16 15 Blood Pressure 146/64 H 111/61 Pulse Oximetry 97 97 97 05/16/18 05:01 05/16/18 06:00 05/16/18 07:00 Temperature 97.6 F Pulse Rate 60 63 61 Respiratory Rate 16 24 20 Blood Pressure 125/60 110/58 L 123/60 Pulse Oximetry 97 97 98 05/16/18 08:00 05/16/18 09:00 Temperature Pulse Rate 61 67 Respiratory Rate 20 21 Blood Pressure 151/80 H 151/73 H Pulse Oximetry 100 100 Intake & Output 05/15/18 05/16/18 05/16/18 18:59 06:59 18:59 Intake Total 750 / 750 250 / 250 Output Total 1700 / 1700 600 / 600 Balance -950 / -950 -350 / -350 Weight 82.1 kg Intake: Oral 750 / 750 250 / 250 Output: Urine Amount (Catheter) 1700 / 1700 600 / 600 Female External 1700 / 1700 600 / 600 Other: # Bowel Movements 0 Narrative: Alert Dysarthric speech Chest CTA CV S1S2 RRR with 1/6 MIRA No edema - Urinary Catheter Management Female External Cath placed during this visit: no Assessment and Plan - Assessment (1) Post-infarction angina Code(s): I23.7 - Postinfarction angina Status: Acute Plan: Better with more aggressive medication regimen (2) Occlusion of bypass graft Code(s): T82.898A - Other specified complication of vascular prosthetic devices , implants and grafts, initial encounter Status: Acute Plan: All of her SVG's are closed. Vessels too small for redo CABG. DEVLIN patent to LAD with collaterals to RCA and OM (3) Hypertension Code(s): I10 - Essential (primary) hypertension Status: Acute (4) Elevated troponin I level Code(s): R74.8 - Abnormal levels of other serum enzymes Status: Acute Plan: Mostlikely from MD last week - Plan OK to transfer to floor. Heparin D/C'd. Medical management. I'm concerned about her living alone.
[2018-05-16] MEDS: Heparin - SQ 10,000 UNITS/ML Vial SQ SCH (21:30)
--- NOTE | 2018-05-16 22:27 | ECG ---
Date Performed: 05/15/2018 Time Performed: 09:42:38 PTAGE: 68 years EKG: Sinus rhythm MARKED LEFT AXIS DEVIATION RIGHT BUNDLE BRANCH BLOCK MODERATE T-WAVE ABNORMALITY, CONSIDER ANTEROLAT ERAL ISCHEMIA MODERATE T-WAVE ABNORMALITY, CONSIDER INFERIOR ISCHEMIA ABNORMAL ECG PREVIOUS TRACING : 05/15/2018 04.20 DOCTOR: Ashley Marie Interpretating Date/Time 05/16/2018 22:21:13
--- NOTE | 2018-05-16 22:34 | ECG ---
Date Performed: 05/15/2018 Time Performed: 04:20:01 PTAGE: 68 years EKG: Sinus rhythm POSSIBLE LEFT ATRIAL ENLARGEMENT RIGHT BUNDLE BRANCH BLOCK PROBABLE SEPTAL MYOCARDIAL INFARCTION MOD ERATE T-WAVE ABNORMALITY, CONSIDER ANTEROLATERAL ISCHEMIA ABNORMAL ECG PREVIOUS TRACING : 05/15/2018 04.17 DOCTOR: Ashley Marie Interpretating Date/Time 05/16/2018 22:25:29
--- NOTE | 2018-05-16 22:35 | ECG ---
Date Performed: 05/15/2018 Time Performed: 00:36:39 PTAGE: 68 years EKG: Sinus rhythm RIGHT BUNDLE BRANCH BLOCK LEFT ANTERIOR FASCICULAR BLOCK MODERATE T-WAVE ABNORMALITY, CONSIDER LATER AL ISCHEMIA MODERATE T-WAVE ABNORMALITY, CONSIDER INFERIOR ISCHEMIA ABNORMAL ECG PREVIOUS TRACING : 05/08/2018 07.23 DOCTOR: Ashley Marie Interpretating Date/Time 05/16/2018 22:26:15
[2018-05-17] MEDS: Chlorhexidine Gluconate 2% 1 Pack (2 Cloths) TOPICAL SCH (03:25)
[2018-05-17 07:17] LABS: Calcium 8.7 mg/dL (8.5-10.1); Carbon Dioxide 25.3 meq/L (21.0-32.0); Potassium 4.7 meq/L (3.5-5.1)
[2018-05-17] MEDS: Pantoprazole Sodium 20 MG DR Tablet PO SCH (08:12)
[2018-05-17] MEDS: Divalproex 250 MG ER Tablet PO SCH ×2 (08:12→20:41)
[2018-05-17] MEDS: amLODIPine 10 MG Tablet PO SCH (08:12)
[2018-05-17] MEDS: Heparin - SQ 10,000 UNITS/ML Vial SQ SCH ×2 (08:12→20:41)
--- NOTE | 2018-05-17 10:17 | P.DS ---
Date of admission: 05/15/18 02:45 Primary care physician: Jodie Giraldo DO Attending physician on discharge: Chely Nixon Anticipated date of discharge: 05/17/18 Brief History from admission: 68-year-old female with past medical history significant for coronary artery disease status post NSTEMI and cardiac catheterization on 05/08/18, chronic kidney disease, history of CVA, hypertension, hyperlipidemia and seizure disorder presents to the emergency department for evaluation of chest pain. The patient reports that earlier today she started having substernal chest pain that felt as if someone was "sitting on her chest." She states the pain radiated down her left arm. It is intermittent and comes on at rest. Her troponin was elevated at 0.18. Last troponin from previous visit was 4.0. The patient denies any shortness of breath. No fever/chills. No abdominal pain. No nausea/vomiting/diarrhea. No lateralizing signs/symptoms. Patient update on day of discharge: Follow-up on patient with angina, status post SC and cardiac catheterization last week. Patient seen and examined. Patient states she feels well. She is hopeful she will be discharged. She reports left arm pain last night but none this morning. She denies any complaints of chest pain presently. Denies any shortness of breath. She denies any nausea, vomiting or abdominal pain. Discussed with Dr. Ortega who has cleared patient for discharge from cardiac perspective. Discussed with patient that she should not drive. DS: Diagnosis - Discharge Diagnosis (1) Angina pectoris, unstable Status: Acute (2) Elevated troponin I level Status: Acute (3) Post-infarction angina Status: Acute (4) Hypertension Status: Acute (5) Occlusion of bypass graft Status: Acute (6) Renal insufficiency Status: Acute DS: Medications - Discharge Medications Prescriptions: amlodipine [Norvasc] 10 mg PO DAILY #30 tab clopidogrel [Plavix] 75 mg PO DAILY #30 tab isosorbide mononitrate 60 mg PO DAILY@0700 #30 tab metoprolol succinate 50 mg PO DAILY #30 tab nitroglycerin 0.4 mg SUBLINGUAL Q5-15M PRN #1 bottle PRN Reason: Chest Pain DS: Summary Hospital Course: Patient with known history of coronary artery disease status post SC and cardiac catheterization 1 week ago was admitted with complaints of chest and left arm pain and elevated troponins. Patient was started on heparin drip. Cardiac enzymes were trended. Patient was seen by Dr. Ortega of cardiology whose impression was post infarct angina. Cardiac cath done 05/08 showed patient DEVLIN-LAD and occluded SVG to OM, GIDEON, and PDA with now L-to-R collaterals to the GIDEON and PDA territory Given the results of her catheterization last week, there did not appear to be any percutaneous or surgical revascularization options possible. He recommended maximizing her medications. To that end, patients Toprol was increased to 50 mg and her amlodipine was increased to 10 mg. She was also started on Plavix and Imdur. Patient had a rapid and unforeseen recovery. Patient was cleared for discharge from cardiac perspective. Case management assisted with discharge planning and to have patient transported back to SNF facility from which she came. Patient was advised that she should no longer drive. - Time Spent with Patient Total time spent providing and/or coordinating discharge services: Greater than 30 minutes - Quality: VTE Deep Vein Thrombosis/Pulmonary Embolism Present on Admission: No Exam Vital signs: Vital Signs 05/16/18 12:00 05/16/18 16:00 05/16/18 20:00 Temperature 97.7 F 96.6 F L 97.6 F Pulse Rate 71 63 76 Respiratory Rate 18 18 18 Blood Pressure 124/63 136/71 144/67 H Pulse Oximetry 100 100 100 05/17/18 00:00 05/17/18 04:00 Temperature 98.1 F 98.2 F Pulse Rate 74 62 Respiratory Rate 18 18 Blood Pressure 132/64 115/69 Pulse Oximetry 99 98 Intake & Output 05/16/18 05/17/18 05/17/18 18:59 06:59 18:59 Weight 163 kg 84 kg Other: # Voids 2 3 Narrative: GENERAL: WDWN elderly AAF, INAD. Awake and alert. Sitting up in bed. SKIN: Warm and dry. HEENT: Atraumatic. Normocephalic. Pupils equal and round. No scleral icterus. No injection or drainage. No nasal bleeding or discharge. Mucous membranes pink and moist. NECK: Trachea midline. CARDIOVASCULAR: Regular rate and rhythm. 1/6 MIRA. RESPIRATORY: No accessory muscle use. Clear to auscultation. Breath sounds equal bilaterally. GASTROINTESTINAL: Abdomen soft, non-tender, nondistended. +BS. MUSCULOSKELETAL: Extremities without clubbing, cyanosis, or edema. No obvious deformities. NEUROLOGICAL: Awake and alert. No obvious cranial nerve deficits. Motor grossly within normal limits. Able to move all extremities spontaneously. Normal speech. PSYCHIATRIC: Appropriate mood and affect. Judgment and insight is limited. Results Procedures completed during hospitalization: None Labs on day of discharge: Labs from last 24 hours 05/17/18 06:13 Sodium 143 Potassium 4.7 Chloride 108 H Carbon Dioxide 25.3 Anion Gap 10 BUN 22 H Creatinine 1.39 H Estimated GFR 45 L Random Glucose 71 L Calcium 8.7 - Impressions ITS Impressions Chest X-Ray 05/15/18 00:22 CONCLUSION: 1. Stable left lower lobe pleural-parenchymal disease. 2. No acute abnormality or significant interval change. Discharge Plan - Discharge Disposition Patient Disposition: Discharge to SNF - Discharge Condition Condition: Fair - Discharge Order Discharge Orders: Discharge Order (Routine); Ordered 05/17/18 Ordered By: Beryl Quintana - Physicians Team Primary Care Provider: Jodie Giraldo Attending Provider: Chely Nixon Other Providers: Zhang Fairchild DO ; [employer]
--- NOTE | 2018-05-17 10:22 | P.PNCA ---
Subjective Interval history: Feeling better. No angina Physical Exam Vital signs: Vital Signs 05/16/18 12:00 05/16/18 16:00 05/16/18 20:00 Temperature 97.7 F 96.6 F L 97.6 F Pulse Rate 71 63 76 Respiratory Rate 18 18 18 Blood Pressure 124/63 136/71 144/67 H Pulse Oximetry 100 100 100 05/17/18 00:00 05/17/18 04:00 Temperature 98.1 F 98.2 F Pulse Rate 74 62 Respiratory Rate 18 18 Blood Pressure 132/64 115/69 Pulse Oximetry 99 98 Intake & Output 05/16/18 05/17/18 05/17/18 18:59 06:59 18:59 Weight 163 kg 84 kg Other: # Voids 2 3 Narrative: GENERAL: WN, WD AA female sitting up in bed eating breakfast in NAD. SKIN: Warm and dry. HEENT: AT/NC. NECK: Supple no JVD HEART: RRR with 1/6 MIRA. LUNGS: CTAB without wheezes or crackles. ABDOMEN: +BS, soft, NT, ND. EXTREMITIES: No LE edema. NEURO: Awake and alert. Speech dysarthric. - Urinary Catheter Management Female External Cath placed during this visit: no Assessment and Plan - Assessment (1) Post-infarction angina Code(s): I23.7 - Postinfarction angina Status: Acute Plan: Better with more aggressive medication regimen. (2) Occlusion of bypass graft Code(s): T82.898A - Other specified complication of vascular prosthetic devices , implants and grafts, initial encounter Status: Acute Plan: All of her SVG's are closed. Vessels too small for redo CABG. DEVLIN patent to LAD with collaterals to RCA and OM. Continue medical therapy (3) Hypertension Code(s): I10 - Essential (primary) hypertension Status: Acute (4) Elevated troponin I level Code(s): R74.8 - Abnormal levels of other serum enzymes Status: Acute Plan: Mostlikely from CT last week - Plan Continue medical management. Spok[place] son and patient. She has poor insight into her situation. Asking for a handicapped apartment when she really needs an [place]. She still drives too.
--- NOTE | 2018-05-17 11:13 | P.PN ---
Subjective Interval history: Follow-up on patient with angina, status post [place] and cardiac catheterization last week. Patient seen and examined. Patient states she feels well. She is hopeful she will be discharged. She reports left arm pain last night but none this morning. She denies any complaints of chest pain presently. Denies any shortness of breath. She denies any nausea, vomiting or abdominal pain. Discussed with Dr. Ortega who has cleared patient for discharge from cardiac perspective. Discussed with patient that she should not drive. Physical Exam Vital signs: Vital Signs 05/16/18 12:00 05/16/18 16:00 05/16/18 20:00 Temperature 97.7 F 96.6 F L 97.6 F Pulse Rate 71 63 76 Respiratory Rate 18 18 Blood Pressure 124/63 136/71 144/67 H Pulse Oximetry 100 100 100 05/17/18 00:00 05/17/18 04:00 05/17/18 08:00 Temperature 98.1 F 98.2 F 97.5 F L Pulse Rate 74 62 65 Respiratory Rate 20 Blood Pressure 132/64 115/69 154/74 H Pulse Oximetry 99 98 98 05/17/18 09:00 Temperature Pulse Rate 71 Respiratory Rate Blood Pressure Pulse Oximetry Intake & Output 05/16/18 05/17/18 05/17/18 18:59 06:59 18:59 Weight 163 kg 84 kg Other: # Voids 2 3 Narrative: GENERAL: WDWN elderly AAF, INAD. Awake and alert. Sitting up in bed. SKIN: Warm and dry. HEENT: Atraumatic. Normocephalic. Pupils equal and round. No scleral icterus. No injection or drainage. No nasal bleeding or discharge. Mucous membranes pink and moist. NECK: Trachea midline. CARDIOVASCULAR: Regular rate and rhythm. 1/6 MIRA. RESPIRATORY: No accessory muscle use. Clear to auscultation. Breath sounds equal bilaterally. GASTROINTESTINAL: Abdomen soft, non-tender, nondistended. +BS. MUSCULOSKELETAL: Extremities without clubbing, cyanosis, or edema. No obvious deformities. NEUROLOGICAL: Awake and alert. No obvious cranial nerve deficits. Motor grossly within normal limits. Able to move all extremities spontaneously. Dysarthric speech. PSYCHIATRIC: Appropriate mood and affect. Judgment and insight is limited. - Urinary Catheter Management Female External Cath placed during this visit: no Results - Labs CBC & Chem 7: 05/16/18 03:16 05/17/18 06:13 Laboratory Results - last 24 hr 05/17/18 06:13 Sodium 143 Potassium 4.7 Chloride 108 H Carbon Dioxide 25.3 Anion Gap 10 BUN 22 H Creatinine 1.39 H Estimated GFR 45 L Random Glucose 71 L Calcium 8.7 - Procedures None Assessment and Plan - Assessment (1) Angina pectoris, unstable Code(s): I20.0 - Unstable angina Status: Acute (2) Elevated troponin I level Code(s): R74.8 - Abnormal levels of other serum enzymes Status: Acute (3) Post-infarction angina Code(s): I23.7 - Postinfarction angina Status: Acute (4) Hypertension Code(s): I10 - Essential (primary) hypertension Status: Acute (5) Occlusion of bypass graft Code(s): T82.898A - Other specified complication of vascular prosthetic devices , implants and grafts, initial encounter Status: Acute (6) Renal insufficiency Code(s): N28.9 - Disorder of kidney and ureter, unspecified Status: Acute - Plan 68 year old female with CAD with history of CABG 2007 and recent NSTEMI with cardiac cath on 05/08, CKD, history of multiple CVA, HTN, and HLD admitted for unstable angina. Unstable angina - Pt s/p CABG 2007 and was recently hospitalized a week ago for NSTEMI - Cardiac cath done 05/08 showed patient DEVLIN-LAD and occluded SVG to OM, GIDEON, and PDA with now L-to-R collaterals to the GIDEON and PDA territory - Troponins 0.18, 0.2, 0.19 - Echo done prior admission on 05/09 with preserved EF of 60-65% - Cardiology consulted. Recommending maximizing medical management: added Plavix and Imdur, increased Toprol and amlodipine. Patient cleared for discharge from cardiac standpoint. - Heparin gtt discontinued - Continue ASA and statin - Nitro PRN - Patient advised not to drive HTN, overall controlled - Some elevated readings with systolics in the 150s - Toprol and amlodipine increased - Continue to monitor CKD - Creatinine fluctuates and has been as high as 1.91 last month - Cr 1.39 today - Monitor renal function and avoid nephrotoxic agents History of CVA - Continue ASA - Now on Plavix - Came from [facility] DVT prophylaxis: Heparin SQ Code Status: FULL Discussed Condition With: patient, nursing staff, Dr. Nixon, Dr. Ortega Discharge Planning: Patient medically cleared for discharge back to SNF facility. Case management assisting with discharge planning. [id number] on chart.
[2018-05-18] MEDS: Chlorhexidine Gluconate 2% 1 Pack (2 Cloths) TOPICAL SCH (04:45)
[2018-05-18] MEDS: Isosorbide Mononitrate 60 MG ER 24HR Tablet (Imdur) PO SCH (06:06)
--- NOTE | 2018-05-18 07:34 | P.PN ---
Subjective Interval history: Follow-up on patient with angina, status post NH and cardiac catheterization last week. Patient seen and examined. Patient reports she is doing well. She denies any fever or chills. She denies any chest pain or shortness of breath. Again reiterated to patient that she should not be driving. DW nursing staff, no events noted overnight. Physical Exam Vital signs: Vital Signs 05/17/18 08:00 05/17/18 09:00 05/17/18 12:00 Temperature 97.5 F L 97.4 F L Pulse Rate 65 71 65 Respiratory Rate 20 20 Blood Pressure 154/74 H 113/68 Pulse Oximetry 98 100 05/17/18 13:21 05/17/18 16:00 05/17/18 20:00 Temperature 97.7 F 98.3 F Pulse Rate 67 65 69 Respiratory Rate 20 16 Blood Pressure 157/79 H 150/75 H Pulse Oximetry 100 100 05/18/18 00:00 05/18/18 04:00 05/18/18 05:03 Temperature 98.6 F 97.8 F Pulse Rate 76 72 70 Respiratory Rate 18 15 Blood Pressure 157/72 H 154/73 H Pulse Oximetry 100 100 Intake & Output 05/17/18 05/18/18 05/18/18 18:59 06:59 18:59 Intake Total 480 / 480 Output Total 500 / 500 Balance -20 / -20 Weight 81 kg Intake: Oral 480 / 480 Output: Urine 500 / 500 Other: # Voids 2 Date of Last Bowel Movement 05/17/18 Narrative: GENERAL: WDWN elderly AAF, INAD. Awake and alert. Sitting up in bed eating breakfast. Seems to be having some difficulty opening her cereal. SKIN: Warm and dry. No rash. HEENT: Atraumatic. Normocephalic. Pupils equal and round. No scleral icterus. No injection or drainage. No nasal bleeding or discharge. Mucous membranes pink and moist. NECK: Trachea midline. CARDIOVASCULAR: Regular rate and rhythm. 1/6 MIRA. RESPIRATORY: No accessory muscle use. Clear to auscultation. Breath sounds equal bilaterally. GASTROINTESTINAL: Abdomen soft, non-tender, nondistended. +BS. MUSCULOSKELETAL: Extremities without clubbing, cyanosis, or edema. No obvious deformities. NEUROLOGICAL: Awake and alert. No obvious cranial nerve deficits. Motor grossly within normal limits. Able to move all extremities spontaneously. Dysarthric speech. PSYCHIATRIC: Appropriate mood and affect. Judgment and insight is limited. - Urinary Catheter Management Female External Cath placed during this visit: no Results - Labs CBC & Chem 7: 05/16/18 03:16 05/17/18 06:13 - Procedures None Assessment and Plan - Assessment (1) Angina pectoris, unstable Code(s): I20.0 - Unstable angina Status: Acute (2) Elevated troponin I level Code(s): R74.8 - Abnormal levels of other serum enzymes Status: Acute (3) Post-infarction angina Code(s): I23.7 - Postinfarction angina Status: Acute (4) Hypertension Code(s): I10 - Essential (primary) hypertension Status: Acute (5) Occlusion of bypass graft Code(s): T82.898A - Other specified complication of vascular prosthetic devices , implants and grafts, initial encounter Status: Acute (6) Renal insufficiency Code(s): N28.9 - Disorder of kidney and ureter, unspecified Status: Acute - Plan 68 year old female with CAD with history of CABG 2007 and recent NSTEMI with cardiac cath on 05/08, CKD, history of multiple CVA, HTN, and HLD admitted for unstable angina. Unstable angina - Pt s/p CABG 2007 and was recently hospitalized a week ago for NSTEMI - Cardiac cath done 05/08 showed patient DEVLIN-LAD and occluded SVG to OM, GIDEON, and PDA with now L-to-R collaterals to the GIDEON and PDA territory - Troponins 0.18, 0.2, 0.19 - Echo done prior admission on 05/09 with preserved EF of 60-65% - Cardiology consulted. Recommending maximizing medical management: added Plavix and Imdur, increased Toprol and amlodipine. Patient cleared for discharge from cardiac standpoint. - Heparin gtt discontinued - Continue ASA and statin - Nitro PRN - Patient advised not to drive, again HTN, overall controlled - Some elevated readings with systolics in the 150s - Toprol and amlodipine increased - Continue to monitor CKD - Creatinine fluctuates and has been as high as 1.91 last month - Cr 1.39 on repeat - Monitor renal function and avoid nephrotoxic agents History of CVA - Continue ASA - Now on Plavix - Came from SNF Weakness -Patient cleared by PT for discharge to home, independent. Patient previously at SNF facility prior to this admission. Appears to have some difficulty opening up cereal box and packs of sugar. We will have OT evaluate patient. DVT prophylaxis: Heparin SQ Code Status: FULL Discussed Condition With: patient, nursing staff, Dr. Hyatt Discharge Planning: Patient medically cleared for discharge. CM assisting with discharge planning.
[2018-05-18] MEDS: amLODIPine 10 MG Tablet PO SCH (09:37)
[2018-05-18] MEDS: Pantoprazole Sodium 20 MG DR Tablet PO SCH (09:38)
[2018-05-18] MEDS: Divalproex 250 MG ER Tablet PO SCH ×2 (09:38→21:14)
[2018-05-18] MEDS: Heparin - SQ 10,000 UNITS/ML Vial SQ SCH ×2 (09:39→21:14)
[2018-05-18] MEDS: Morphine Inj 4 MG/ML Vial IV.PUSH PRN (22:24)
[2018-05-19] MEDS: Chlorhexidine Gluconate 2% 1 Pack (2 Cloths) TOPICAL SCH (05:26)
[2018-05-19] MEDS: Morphine Inj 4 MG/ML Vial IV.PUSH PRN ×2 (06:00→23:46)
[2018-05-19] MEDS: Isosorbide Mononitrate 60 MG ER 24HR Tablet (Imdur) PO SCH (06:07)
[2018-05-19] MEDS: Pantoprazole Sodium 20 MG DR Tablet PO SCH (08:09)
[2018-05-19] MEDS: Heparin - SQ 10,000 UNITS/ML Vial SQ SCH ×2 (08:10→23:13)
[2018-05-19] MEDS: amLODIPine 10 MG Tablet PO SCH (08:10)
[2018-05-19] MEDS: Divalproex 250 MG ER Tablet PO SCH ×2 (08:10→23:13)
[2018-05-19] MEDS: Nitroglycerin SL (Override) 0.4 MG Tab SL PRN ×3 (09:24→23:41)
[2018-05-19] MEDS ORDERED: Isosorbide Mononitrate 30 MG ER 24HR Tablet (Imdur) PO ONE (10:45)
--- NOTE | 2018-05-19 10:45 | P.PN ---
Subjective Interval history: Follow-up on patient with angina, status post [place] and cardiac catheterization last week. Patient seen and examined. Patient does not feel well today. She is complaining of left sided chest and left arm pain since early this morning. She denies any shortness of breath. She states she didn't sleep well. She denies any headache, dizziness, visual disturbance, numbness/tingling or weakness. She denies any nausea or vomiting. She denies any abdominal pain. Physical Exam Vital signs: Vital Signs 05/18/18 12:00 05/18/18 16:00 05/18/18 20:00 Temperature 98.0 F 98 F 98.2 F Pulse Rate 72 66 68 Respiratory Rate 17 16 17 Blood Pressure 113/61 102/59 L 121/57 L Pulse Oximetry 100 100 99 05/19/18 00:00 05/19/18 03:18 05/19/18 06:58 Temperature 97.7 F 98.4 F Pulse Rate 66 64 Respiratory Rate 17 17 12 Blood Pressure 117/62 105/55 L Pulse Oximetry 99 97 05/19/18 08:00 05/19/18 09:00 05/19/18 10:27 Temperature 97.9 F Pulse Rate 60 72 62 Respiratory Rate 20 Blood Pressure 120/66 113/59 L Pulse Oximetry 99 100 Intake & Output 05/18/18 05/19/18 05/19/18 18:59 06:59 18:59 Intake Total 480 / 480 Balance 480 / 480 Weight 82.2 kg Intake: Oral 480 / 480 Other: # Incontinent Voids 3 Date of Last Bowel Movement 05/17/18 05/18/18 Narrative: GENERAL: WDWN elderly AAF, INAD. Awake, lethargic. Does not look well. Not in any acute respiratory distress. SKIN: Warm and dry. No rash. HEENT: Atraumatic. Normocephalic. Pupils equal and round. No scleral icterus. No injection or drainage. No nasal bleeding or discharge. Mucous membranes pink and moist. NECK: Trachea midline. CARDIOVASCULAR: Regular rate and rhythm. 1/6 MIRA. RESPIRATORY: No accessory muscle use. Clear to auscultation. Breath sounds equal bilaterally. GASTROINTESTINAL: Abdomen soft, non-tender, nondistended. +BS. MUSCULOSKELETAL: Extremities without clubbing, cyanosis, or edema. No obvious deformities. NEUROLOGICAL: Awake. No obvious cranial nerve deficits. Motor grossly within normal limits. Able to move all extremities spontaneously. Dysarthric speech. PSYCHIATRIC: Appropriate mood and affect. Judgment and insight is limited. - Urinary Catheter Management Female External Cath placed during this visit: no Results - Labs CBC & Chem 7: 05/19/18 10:55 05/19/18 10:55 - Procedures None Assessment and Plan - Assessment (1) Angina pectoris, unstable Code(s): I20.0 - Unstable angina Status: Acute (2) Elevated troponin I level Code(s): R74.8 - Abnormal levels of other serum enzymes Status: Acute (3) Post-infarction angina Code(s): I23.7 - Postinfarction angina Status: Acute (4) Hypertension Code(s): I10 - Essential (primary) hypertension Status: Acute (5) Occlusion of bypass graft Code(s): T82.898A - Other specified complication of vascular prosthetic devices , implants and grafts, initial encounter Status: Acute (6) Renal insufficiency Code(s): N28.9 - Disorder of kidney and ureter, unspecified Status: Acute - Plan 68 year old female with CAD with history of CABG 2007 and recent NSTEMI with cardiac cath on 05/08, CKD, history of multiple CVA, HTN, and HLD admitted for unstable angina. Unstable angina - Pt s/p CABG 2007 and was recently hospitalized a week ago for NSTEMI - Cardiac cath done 05/08 showed patient DEVLIN-LAD and occluded SVG to OM, GIDEON, and PDA with now L-to-R collaterals to the GIDEON and PDA territory - Troponins 0.18, 0.2, 0.19 - Echo done prior admission on 05/09 with preserved EF of 60-65% - Cardiology consulted. Recommending maximizing medical management: added Plavix and Imdur, increased Toprol and amlodipine. Patient cleared for discharge from cardiac standpoint. - Heparin gtt discontinued - Continue ASA and statin - Nitro PRN - reiterated to patient she should not be driving 05/19 patient c/o left sided chest and arm pain since early this morning. Resume supplementation oxygen. Given Nitro sl with some improvement. Dr. Hyatt dw Dr. Ortega who recommended increasing her Imdur dose. Unlikely patient will be able to afford Ranexa. Dr. Ortega only wants her on Imdur once a day. Patient given additional Imdur 30mg x 1 and will begin 90mg daily in am. Acute encephalopathy patient more lethargic this am ?medication induced, patient received Morphine and Xanax this am Hold all sedating medications Will obtain ABG, CT head, EEG, CXR, UA and labs including ammonia level and depakote level Monitor for improvement HTN, now hypotensive - continue on current medication regimen - Continue to monitor CKD - Creatinine fluctuates and has been as high as 1.91 last month - Cr 1.44 on repeat - Monitor renal function and avoid nephrotoxic agents History of CVA - Continue ASA - Now on Plavix - Came from SNF Weakness -OT following, recommending rehab DVT prophylaxis: Heparin SQ Code Status: FULL Discussed Condition With: patient, nursing staff, Dr. Hyatt Discharge Planning: Discharge cancelled. May discharge in next 24-48hrs pending clinical improvement.
[2018-05-19 10:47] LABS: ABG Base Excess 0.5 mmol/L (-2-2); ABG PCO2 44 mmHg (38-42); ABG PO2 111 mmHg (61-120)
[2018-05-19 11:13] LABS: Baso % (Auto) 0.4 % (0.0-2.0); Eos # (Auto) 0.2 th/mm3 (0.0-0.4); Eos % (Auto) 2.8 % (0.0-4.0); Hematocrit 36.5 % (35.0-46.0); Hemoglobin 11.7 gm/dL (11.6-15.3); Lymph % (Auto) 31.8 % (9.0-44.0); Mean Corpuscular HGB Conc 32.1 % (32.0-36.0); Mean Corpuscular Hemoglobin 29.7 pg (27.0-34.0); Mean Corpuscular Volume 92.7 fL (80.0-100.0); Mean Platelet Volume 8.8 fL (7.0-11.0); Mono # (Auto) 0.4 th/mm3 (0.0-0.9); Mono % (Auto) 6.9 % (0.0-8.0); Neut # (Auto) 3.7 th/mm3 (1.8-7.7); Neut % (Auto) 58.1 % (16.0-70.0); Platelet Count 269 th/mm3 (150-450); Red Blood Count 3.94 mil/mm3 (4.00-5.30); Red Cell Distribution Width 15.2 % (11.6-17.2); White Blood Count 6.4 th/mm3 (4.0-11.0)
[2018-05-19 11:33] LABS: Albumin 2.8 g/dL (3.4-5.0); Anion Gap 8 meq/L (5-15); Aspartate Aminotransferase 16 U/L (15-37); Blood Urea Nitrogen 23 mg/dL (7-18); Calcium 8.7 mg/dL (8.5-10.1); Carbon Dioxide 25.9 meq/L (21.0-32.0); Chloride 106 meq/L (98-107); Glomerular Filtration Rate 44 mL/min (>89); Glucose,Random 100 mg/dL (74-106); Potassium 4.4 meq/L (3.5-5.1); Sodium 140 meq/L (136-145)
[2018-05-19 11:34] LABS: Alanine Aminotransferase 14 U/L (10-53)
[2018-05-19 11:35] LABS: Magnesium 1.9 mg/dL (1.5-2.5)
[2018-05-19 11:36] LABS: Alkaline Phosphatase 72 U/L (45-117); Total Protein 7.4 g/dL (6.4-8.2)
--- NOTE | 2018-05-19 15:35 | XR ---
EXAM DATE: 05/19/2018 3:30 PM EDT AGE/SEX: 68 years / Female INDICATIONS: Chest pain. Weakness. CLINICAL DATA: This is the patient's subsequent encounter. Patient reports that signs and symptoms h ave been present for 3 days and indicates a pain score of 3/10. MEDICAL/SURGICAL HISTORY: Hypertension. None. COMPARISON: [facility] [place] 1[place], [place]/2018. . FINDINGS: The cardiac silhouette is enlarged in transverse diameter. Median sternotomy wires are present. A bul let is projected over the left apex. There is parenchymal scarring on the left. There is mild scoliot ic deformity convex to the right. CONCLUSION: Cardiomegaly. No acute pulmonary disease. Electronically signed by: Galdino Shen MD 05/19/2018 3:34 PM EDT
--- NOTE | 2018-05-19 16:16 | CT ---
EXAM DATE: 05/19/2018 4:02 PM EDT AGE/SEX: 68 years / Female INDICATIONS: Altered mental status. CLINICAL DATA: This is the patient's initial encounter. Patient reports that signs and symptoms have been present for 1 day and indicates a pain score of 0/10. MEDICAL/SURGICAL HISTORY: Stroke. Hypertension. Coronary artery disease. Seizure. CABG. RADIATION DOSE: 56.35 CTDI (mGy) [place] [facility] [place]. . TECHNIQUE: CT of the head without contrast. Using automated exposure control and adjustment of the mA and/or kV according to patient size, radiation dose was kept as low as reasonably achievable to ob tain optimal diagnostic quality images. DICOM format image data is available electronically for revi ew and comparison. FINDINGS: Noncontrast axial head CT demonstrates the ventricles to be normal in size and configuration with a n ormal sulcal pattern. No acute intracranial hemorrhage, acute cortical infarction, mass or midline sh ift is seen. There is old infarct in the posterior left frontal region old right basal ganglia infarc t is also present.Posterior fossa structures are unremarkable. Bone windows are unremarkable. CONCLUSION: No evidence of acute intracranial pathology. No masses are identified. Old left frontal and right ba caitlin ganglia infarcts . Electronically signed by: Galdino Shen MD 05/19/2018 4:14 PM EDT
[2018-05-19 18:18] LABS: Bilirubin,Urine Negative (Negative); Clarity,Urine Hazy (Clear); Color,Urine Yellow (Yellw/Straw); Glucose,Urine (UA) Negative (Negative); Leukocyte Esterase,Urine Moderate (Negative); Mucus,Urine Few /lpf (Occasional); Nitrite,Urine Negative (Negative); Squamous Epithelial Cell,Urine 1 /hpf (0-5)
[2018-05-20] MEDS: Chlorhexidine Gluconate 2% 1 Pack (2 Cloths) TOPICAL SCH (03:03)
[2018-05-20] MEDS ORDERED: Isosorbide Mononitrate 30 MG ER 24HR Tablet (Imdur) PO SCH (07:00)
--- NOTE | 2018-05-20 08:33 | P.PN ---
Subjective Interval history: Follow-up on patient with angina, status post [place] and cardiac catheterization last week. Patient seen and examined. Patient MUCH improved from yesterday. Sitting up on side of bed, awake and alert. No complaints of pain. No headache , dizziness or visual changes. No chest pain or dyspnea. No N/V or abdominal pain. Physical Exam Vital signs: Vital Signs 05/19/18 09:00 05/19/18 10:27 05/19/18 11:14 Temperature Pulse Rate 72 62 Respiratory Rate 12 Blood Pressure 113/59 L Pulse Oximetry 100 05/19/18 12:00 05/19/18 12:26 05/19/18 13:18 Temperature 98 F Pulse Rate 61 60 Respiratory Rate 20 12 Blood Pressure 106/57 L Pulse Oximetry 100 05/19/18 15:27 05/19/18 16:00 05/19/18 17:11 Temperature 98.1 F Pulse Rate 60 Respiratory Rate 12 20 12 Blood Pressure 123/58 L Pulse Oximetry 100 05/19/18 18:19 05/19/18 20:00 05/20/18 00:00 Temperature 97.8 F 98.3 F Pulse Rate 63 67 65 Respiratory Rate 18 18 Blood Pressure 124/63 131/65 Pulse Oximetry 100 100 05/20/18 03:56 05/20/18 04:00 Temperature 97.9 F Pulse Rate 65 Respiratory Rate 18 16 Blood Pressure 146/71 H Pulse Oximetry 99 Intake & Output 05/19/18 05/20/18 05/20/18 18:59 06:59 18:59 Intake Total 250 / 250 240 / 240 Output Total 3 / 850 / 850 Balance 247 / 247 -610 / -610 Intake: Oral 250 / 250 240 / 240 Output: Urine 2 / 2 850 / 850 Stool 1 / Other: # Voids 1 3 # Incontinent Voids 1 Date of Last Bowel Movement 05/19/18 05/18/18 Narrative: GENERAL: WDWN elderly AAF, INAD. Awake and alert. Looks good. SKIN: Warm and dry. No rash. HEENT: Atraumatic. Normocephalic. Pupils equal and round. No scleral icterus. No injection or drainage. No nasal bleeding or discharge. Mucous membranes pink and moist. NECK: Trachea midline. CARDIOVASCULAR: Regular rate and rhythm. 1/6 MIRA. RESPIRATORY: No accessory muscle use. Clear to auscultation. Breath sounds equal bilaterally. GASTROINTESTINAL: Abdomen soft, non-tender, nondistended. +BS. MUSCULOSKELETAL: Extremities without clubbing, cyanosis, or edema. No obvious deformities. NEUROLOGICAL: Awake and alert. No obvious cranial nerve deficits. Motor grossly within normal limits. Able to move all extremities spontaneously. Dysarthric speech. PSYCHIATRIC: Appropriate mood and affect. - Urinary Catheter Management Female External Cath placed during this visit: no Results - Labs CBC & Chem 7: 05/19/18 10:55 05/19/18 10:55 Laboratory Results - last 24 hr 05/19/18 05/19/18 05/19/18 10:38 10:55 10:55 WBC 6.4 RBC 3.94 L Hgb 11.7 Hct 36.5 MCV 92.7 MCH 29.7 MCHC 32.1 RDW 15.2 Plt Count 269 MPV 8.8 Neut % (Auto) 58.1 Lymph % (Auto) 31.8 [place] % (Auto) 6.9 Eos % (Auto) 2.8 Baso % (Auto) 0.4 Neut # (Auto) 3.7 Lymph # (Auto) 2.0 [place] # (Auto) 0.4 Eos # (Auto) 0.2 Baso # (Auto) 0.0 WBC Differential . Differential Comment Auto diff final Puncture Site Right radial Patient Temperature 98.6 O2 Saturation 96 ABG pH 7.38 ABG pCO2 44 H ABG pO2 111 ABG HCO3 25 ABG O2 Content 16.3 ABG Base Excess 0.5 ABG Methemoglobin 1.2 [place] Test Present Hemoglobin 11.9 L Carboxyhemoglobin 0.9 O2 Delivery Device Nasal cannula Liter Flow 1.00 Critical Value No Sodium 140 Potassium 4.4 Chloride 106 Carbon Dioxide 25.9 Anion Gap 8 BUN 23 H Creatinine 1.44 H Estimated GFR 44 L Random Glucose 100 Calcium 8.7 Magnesium Total Bilirubin 0.3 AST 16 ALT 14 Alkaline Phosphatase 72 Ammonia Troponin I Total Protein 7.4 D Albumin 2.8 L Vitamin B12 Urine Color Urine Clarity Urine pH Ur Specific [place] Urine Protein Urine Glucose (UA) Urine Ketones Urine Occult Blood Urine Nitrate Urine Bilirubin Urine Urobilinogen Ur Leukocyte Esterase Urine WBC Ur Squamous Epith Cells Urine Mucus Micro UA Comment Ur Microscopic Review Urine Culture Comments Valproic Acid 05/19/18 05/19/18 05/19/18 10:55 10:55 10:55 WBC RBC Hgb Hct MCV MCH MCHC RDW Plt Count MPV Neut % (Auto) Lymph % (Auto) [place] % (Auto) Eos % (Auto) Baso % (Auto) Neut # (Auto) Lymph # (Auto) [place] # (Auto) Eos # (Auto) Baso # (Auto) WBC Differential Differential Comment Puncture Site Patient Temperature O2 Saturation ABG pH ABG pCO2 ABG pO2 ABG HCO3 ABG O2 Content ABG Base Excess ABG Methemoglobin [place] Test Hemoglobin Carboxyhemoglobin O2 Delivery Device Liter Flow Critical Value Sodium Potassium Chloride Carbon Dioxide Anion Gap BUN Creatinine Estimated GFR Random Glucose Calcium Magnesium 1.9 Total Bilirubin AST ALT Alkaline Phosphatase Ammonia Less than 10 L Troponin I 0.03 D Total Protein Albumin Vitamin B12 Urine Color Urine Clarity Urine pH Ur Specific [place] Urine Protein Urine Glucose (UA) Urine Ketones Urine Occult Blood Urine Nitrate Urine Bilirubin Urine Urobilinogen Ur Leukocyte Esterase Urine WBC Ur Squamous Epith Cells Urine Mucus Micro UA Comment Ur Microscopic Review Urine Culture Comments Valproic Acid 71 05/19/18 05/19/18 10:55 17:52 WBC RBC Hgb Hct MCV MCH MCHC RDW Plt Count MPV Neut % (Auto) Lymph % (Auto) [place] % (Auto) Eos % (Auto) Baso % (Auto) Neut # (Auto) Lymph # (Auto) [place] # (Auto) Eos # (Auto) Baso # (Auto) WBC Differential Differential Comment Puncture Site Patient Temperature O2 Saturation ABG pH ABG pCO2 ABG pO2 ABG HCO3 ABG O2 Content ABG Base Excess ABG Methemoglobin [place] Test Hemoglobin Carboxyhemoglobin O2 Delivery Device Liter Flow Critical Value Sodium Potassium Chloride Carbon Dioxide Anion Gap BUN Creatinine Estimated GFR Random Glucose Calcium Magnesium Total Bilirubin AST ALT Alkaline Phosphatase Ammonia Troponin I Total Protein Albumin Vitamin B12 370 Urine Color Yellow Urine Clarity Hazy H Urine pH 5.0 Ur Specific [place] 1.020 Urine Protein Negative Urine Glucose (UA) Negative Urine Ketones Negative Urine Occult Blood Small H Urine Nitrate Negative Urine Bilirubin Negative Urine Urobilinogen 2.0 H Ur Leukocyte Esterase Moderate H Urine WBC 18 H Ur Squamous Epith Cells 1 Urine Mucus Few H Micro UA Comment Culture indicated Ur Microscopic Review Not Reportable Urine Culture Comments Culture indicated Valproic Acid - Imaging Impressions Chest X-Ray 05/19/18 00:00 CONCLUSION: Cardiomegaly. No acute pulmonary disease. Head CT 05/19/18 00:00 CONCLUSION: No evidence of acute intracranial pathology. No masses are identified. Old left frontal and right basal ganglia infarcts . - Procedures None Assessment and Plan - Assessment (1) Angina pectoris, unstable Code(s): I20.0 - Unstable angina Status: Acute (2) Elevated troponin I level Code(s): R74.8 - Abnormal levels of other serum enzymes Status: Acute (3) Post-infarction angina Code(s): I23.7 - Postinfarction angina Status: Acute (4) Hypertension Code(s): I10 - Essential (primary) hypertension Status: Acute (5) Occlusion of bypass graft Code(s): T82.898A - Other specified complication of vascular prosthetic devices , implants and grafts, initial encounter Status: Acute (6) Renal insufficiency Code(s): N28.9 - Disorder of kidney and ureter, unspecified Status: Acute - Plan 68 year old female with CAD with history of CABG 2007 and recent NSTEMI with cardiac cath on 05/08, CKD, history of multiple CVA, HTN, and HLD admitted for unstable angina. Unstable angina - Pt s/p CABG 2007 and was recently hospitalized a week ago for NSTEMI - Cardiac cath done 05/08 showed patient DEVLIN-LAD and occluded SVG to OM, GIDEON, and PDA with now L-to-R collaterals to the GIDEON and PDA territory - Troponins 0.18, 0.2, 0.19 - Echo done prior admission on 05/09 with preserved EF of 60-65% - Cardiology consulted. Recommending maximizing medical management: added Plavix and Imdur, increased Toprol and amlodipine. Patient cleared for discharge from cardiac standpoint. - Heparin gtt discontinued - Continue ASA and statin - Nitro PRN - reiterated to patient she should not be driving 05/19 patient c/o left sided chest and arm pain since early this morning. Resume supplementation oxygen. Given Nitro sl with some improvement. Dr. Hyatt dw Dr. Ortega who recommended increasing her Imdur dose. Unlikely patient will be able to afford Ranexa. Dr. Ortega only wants her on Imdur once a day. Patient given additional Imdur 30mg x 1 and will begin 90mg daily in am. 05/20 no complaints of chest or left arm pain this morning Acute encephalopathy, resolved suspect medication induced, patient received Morphine and Xanax, also did not sleep well night prior patient awake and alert today Continue to hold all sedating medications Workup unremarkable Possible UTI UA + sm blood, mod leukocytes, 18 WBCs - start on IV Ceftriaxone, plan to transition to po Ceftin at d/c - follow up on urine cx results HTN - continue on current medication regimen - Continue to monitor CKD - Creatinine fluctuates and has been as high as 1.91 last month - Cr 1.44 on repeat - Monitor renal function and avoid nephrotoxic agents History of CVA - Continue ASA - Now on Plavix - Came from SNF Weakness -OT following, recommending rehab Hypomagnesemia Mag 1.9 - Give Mag Ox 800mg x 1 dose DVT prophylaxis: Heparin SQ Discharge Planning: Discharge cancelled. May discharge in next 24-48hrs pending clinical improvement.
[2018-05-20] MEDS: Heparin - SQ 10,000 UNITS/ML Vial SQ SCH (08:36)
[2018-05-20] MEDS: Divalproex 250 MG ER Tablet PO SCH (08:36)
[2018-05-20] MEDS: Pantoprazole Sodium 20 MG DR Tablet PO SCH (08:37)
[2018-05-20] MEDS: amLODIPine 10 MG Tablet PO SCH (08:37)
[2018-05-20 09:34] VITALS: RESP 18; O2SAT 100
--- NOTE | 2018-05-20 10:23 | MG ---
cc: Jaylon Doty MD EEG RECORD NUMBER: [id number]. Dictation was dictated on 05/19/2018, but for some reason is not able to be transcribed by the magnetic tape winder service. FINDINGS: Increased beta frequencies noted throughout the recording, polyfrequency EEG. Questionable tiny frontal sharp transients. Reasonable driving with photic stimulation. Single-lead EKG showing sinus rhythm. INTERPRETATION: Minimal encephalopathy with polyfrequency EEG. Increased beta frequencies, which may be medication-related effect. No obvious seizure activity. Clinical correlation. Jaylon Doty MD MG/rh , 10:15 AM , 10:19 AM
[2018-05-20] MEDS ORDERED: Magnesium Oxide 400 MG Tablet PO ONE (11:24)
--- NOTE | 2018-05-20 11:34 | P.DCO ---
- Occupational Therapy Order: Evaluate and treat, Improve ADL, Gross motor coordination, Fine motor coordination - Home Health Nursing Order: Medical education, Signs/symptoms of disease process, Medication education-adverse effect, Nursing assessment with vital signs - Case Management Consult Yes - Certification I have seen patient Jody Culp on 05/20/18. My clinical findings support the need for the requested home health care services because: Limited mobility due to disease progression, Deconditioned with increased weakness, Medication compliance is questionable, Limited ability to care for self I certify that my clinical findings support that this patient is homebound because: Unsafe to leave home unassisted, Unable to use public transportation, Poor cardiac reserve
--- NOTE | 2018-05-20 11:47 | P.DS ---
Date of admission: 05/15/18 02:45 Primary care physician: Jodie Giraldo DO Attending physician on discharge: Shane Hyatt Anticipated date of discharge: 05/20/18 Brief History from admission: 68-year-old female with past medical history significant for coronary artery disease status post NSTEMI and cardiac catheterization on 05/08/18, chronic kidney disease, history of CVA, hypertension, hyperlipidemia and seizure disorder presents to the emergency department for evaluation of chest pain. The patient reports that earlier today she started having substernal chest pain that felt as if someone was "sitting on her chest." She states the pain radiated down her left arm. It is intermittent and comes on at rest. Her troponin was elevated at 0.18. Last troponin from previous visit was 4.0. The patient denies any shortness of breath. No fever/chills. No abdominal pain. No nausea/vomiting/diarrhea. No lateralizing signs/symptoms. Patient update on day of discharge: Follow-up on patient with angina, status post [place] and cardiac catheterization last week. Patient seen and examined. Patient MUCH improved from yesterday. Sitting up on side of bed, awake and alert. No complaints of pain. No headache , dizziness or visual changes. No chest pain or dyspnea. No N/V or abdominal pain. DS: Diagnosis - Discharge Diagnosis (1) Angina pectoris, unstable Status: Acute (2) Elevated troponin I level Status: Acute (3) Post-infarction angina Status: Acute (4) Occlusion of bypass graft Status: Acute (5) Renal insufficiency Status: Acute (6) Hypertension Status: Acute (7) UTI (urinary tract infection) Status: Acute (8) Upper extremity weakness Status: Acute (9) Impaired activities of daily living Status: Acute DS: Medications - Discharge Medications Prescriptions: amlodipine [Norvasc] 10 mg PO DAILY #30 tab cefuroxime axetil 500 mg PO Q12H 5 Days #10 tab clopidogrel [Plavix] 75 mg PO DAILY #30 tab isosorbide mononitrate 90 mg PO DAILY@0700 #90 tab metoprolol succinate 50 mg PO DAILY #30 tab nitroglycerin 0.4 mg SUBLINGUAL Q5-15M PRN #1 bottle PRN Reason: Chest Pain DS: Summary Hospital Course: Patient with known history of coronary artery disease status post [place] and cardiac catheterization 1 week ago was admitted with complaints of chest and left arm pain and elevated troponins. Patient was started on heparin drip. Cardiac enzymes were trended. Patient was seen by Dr. Ortega of cardiology whose impression was post infarct angina. Cardiac cath done 05/08 showed patient DEVLIN-LAD and occluded SVG to OM, GIDEON, and PDA with now L-to-R collaterals to the GIDEON and PDA territory Given the results of her catheterization last week, there did not appear to be any percutaneous or surgical revascularization options possible. He recommended maximizing her medications. To that end, patients Toprol was increased to 50 mg and her amlodipine was increased to 10 mg. She was also started on Plavix and Imdur. Patient had a rapid and unforeseen recovery. Patient was cleared for discharge from cardiac perspective. Discharged was ordered. Patient developed altered mental status/ acute encephalopathy with increased lethargy and complaints of worsening chest and left arm pain. Her discharge was cancelled. Discussed with Dr. Ortega who recommended increasing patients Imdur dose to 90mg once daily. Unlikely patient willing to pay for Ranexa. All sedating medications were held. Full workup was negative except for UA suggestive of UTI. Patient given IV Ceftriaxone and discharged on po Ceftin. Patient improved clinically. Case management assisted with discharge planning with [facility]. Patient was advised multiple times that she should no longer drive. - Time Spent with Patient Total time spent providing and/or coordinating discharge services: Greater than 30 minutes - Quality: VTE Deep Vein Thrombosis/Pulmonary Embolism Present on Admission: No Exam Vital signs: Vital Signs 05/19/18 12:00 05/19/18 12:26 05/19/18 13:18 Temperature 98 F Pulse Rate 61 60 Respiratory Rate 20 12 Blood Pressure 106/57 L Pulse Oximetry 100 05/19/18 15:27 05/19/18 16:00 05/19/18 17:11 Temperature 98.1 F Pulse Rate 60 Respiratory Rate 12 20 12 Blood Pressure 123/58 L Pulse Oximetry 100 05/19/18 18:19 05/19/18 20:00 05/20/18 00:00 Temperature 97.8 F 98.3 F Pulse Rate 63 67 65 Respiratory Rate 18 18 Blood Pressure 124/63 131/65 Pulse Oximetry 100 100 05/20/18 03:56 05/20/18 04:00 05/20/18 08:00 Temperature 97.9 F 98.1 F Pulse Rate 65 64 Respiratory Rate 18 18 Blood Pressure 146/71 H 127/69 Pulse Oximetry 99 100 Intake & Output 05/19/18 05/20/18 05/20/18 18:59 06:59 18:59 Intake Total 250 / 250 240 / 240 100 / 100 Output Total 3 / 3 850 / 850 Balance 247 / 247 -610 / -610 100 / 100 Intake: IV 100 / 100 Rocephin Inj 1,000 MG In NS Inj 100 / 100 100 ML @ 200 mls/hr IV.SIG Q24H ILDA Rx#:[id number] Oral 250 / 250 240 / 240 Output: Urine 2 / 2 850 / 850 Stool 1 / Other: # Voids 1 3 # Incontinent Voids 1 Date of Last Bowel Movement 05/19/18 05/18/18 05/19/18 Narrative: GENERAL: WDWN elderly AAF, INAD. Awake and alert. Looks good. SKIN: Warm and dry. No rash. HEENT: Atraumatic. Normocephalic. Pupils equal and round. No scleral icterus. No injection or drainage. No nasal bleeding or discharge. Mucous membranes pink and moist. NECK: Trachea midline. CARDIOVASCULAR: Regular rate and rhythm. 1/6 MIRA. RESPIRATORY: No accessory muscle use. Clear to auscultation. Breath sounds equal bilaterally. GASTROINTESTINAL: Abdomen soft, non-tender, nondistended. +BS. MUSCULOSKELETAL: Extremities without clubbing, cyanosis, or edema. No obvious deformities. NEUROLOGICAL: Awake and alert. No obvious cranial nerve deficits. Motor grossly within normal limits. Able to move all extremities spontaneously. Dysarthric speech. PSYCHIATRIC: Appropriate mood and affect. Results Procedures completed during hospitalization: None Labs on day of discharge: Labs from last 24 hours 05/19/18 05/19/18 05/19/18 17:52 10:55 10:55 Total Bilirubin Alkaline Phosphatase Troponin I 0.03 D Total Protein Vitamin B12 370 Urine Color Yellow Urine Clarity Hazy H Urine pH 5.0 Ur Specific [place] 1.020 Urine Protein Negative Urine Glucose (UA) Negative Urine Ketones Negative Urine Occult Blood Small H Urine Nitrate Negative Urine Bilirubin Negative Urine Urobilinogen 2.0 H Ur Leukocyte Esterase Moderate H Urine WBC 18 H Ur Squamous Epith Cells 1 Urine Mucus Few H Micro UA Comment Culture indicated Ur Microscopic Review Not Reportable Urine Culture Comments Culture indicated Valproic Acid 05/19/18 05/19/18 10:55 10:55 Total Bilirubin 0.3 Alkaline Phosphatase 72 Troponin I Total Protein 7.4 D Vitamin B12 Urine Color Urine Clarity Urine pH Ur Specific [place] Urine Protein Urine Glucose (UA) Urine Ketones Urine Occult Blood Urine Nitrate Urine Bilirubin Urine Urobilinogen Ur Leukocyte Esterase Urine WBC Ur Squamous Epith Cells Urine Mucus Micro UA Comment Ur Microscopic Review Urine Culture Comments Valproic Acid 71 - Impressions ITS Impressions Chest X-Ray 05/19/18 00:00 CONCLUSION: Cardiomegaly. No acute pulmonary disease. Head CT 05/19/18 00:00 CONCLUSION: No evidence of acute intracranial pathology. No masses are identified. Old left frontal and right basal ganglia infarcts . Discharge Plan - Discharge Disposition Patient Disposition: /Home Health Service - Discharge Condition Condition: Fair - Discharge Order Discharge Orders: Discharge Order (Routine); Ordered 05/20/18 Ordered By: Beryl Quintana - Discharge Details Anticipated Discharge Date: 05/20/18 - Physicians Team Primary Care Provider: Jodie Giraldo Attending Provider: Shane Hyatt Other Providers: Zhang Fairchild DO ; [employer] ; [facility]
[2018-05-20 12:35] VITALS: BP 113/66; PULSE 67; TEMP 97.6
== END 2018-05-20 17:17 | disposition home health service (06) ==
LOC: NEPC 00:06 → NEDA 02:45 → HIMC 04:45 → N05 05-16 11:51
PROVIDERS: ADMIT Hospitalist; ATTEND Hospitalist